=== PATIENT | female | born 1935 | race Caucasian/White ===

== ENCOUNTER → 2017-05-31 10:53 | Outpatient (CLI) | payer MEDICARE, OTHER, SELFPAY ==
[2017-05-31 11:55] LABS: Hematocrit 37.1 % (37-47); Hemoglobin 12.5 g/dl (12.0-15.0); Mean Corp Hgb Conc 33.7 g/gl (32-36); Mean Corpuscular Hgb 31.1 pg (27.0-32.0); Mean Corpuscular Volume 92.3 fL (81-99); Mean Platelet Vol. 9.5 fl (6.2-12.0); Platelet Count 223 K/mm3 (150-450); RBC Distribution Width CV 13.1 % (11.6-14.6); RBC Distribution Width SD 43.9 fl (35.1-43.9); Red Blood Count 4.02 M/mm3 (4.2-5.4); White Blood Count 6.3 K/mm3 (4.4-11.0)
[2017-05-31 11:57] LABS: Scan Indicated on CBC? Y/N NO
[2017-05-31 12:56] LABS: AST(SGOT) 18 U/L (15-37); Alanine Aminotransfer ALT/SGPT 22 U/L (13-56); Albumin, Serum 3.8 g/dL (3.2-5.0); Alkaline Phosphatase 82 U/L (45-117); Anion Gap 8 (5-15); BUN 11 mg/dL (7-18); BUN/Creat Ratio 14.8 RATIO (10-20); Calcium,Total 8.8 mg/dL (8.5-10.1); Chloride 106 mmol/L (98-107); Cholesterol 234 mg/dL (200); Creatinine, Serum 0.74 mg/dL (0.55-1.02); EST Glomerular Filtration Rate 80 mL/min (>60); Est Glom Filt Rate - Afr Amer 97 mL/min (>60); Glucose 111 mg/dL (74-106); High Density Lipoprotein 30 mg/dL; Protein, Total 7.8 g/dL (6.4-8.2); Sodium Level 141 mmol/L (136-145); Triglycerides 218 mg/dL; Very Low Density Lipoprotein 44 mg/dL (5-40)
== END ==
PROVIDERS: Family Provider Family Medicine; PCP Family Medicine; Visit Provider Family Medicine
DX: I10 Essential (primary) hypertension (principal); R73.9 Hyperglycemia, unspecified; E78.2 Mixed hyperlipidemia
CPT/HCPCS: 36415; 80053; 80061; 83036; 85027

== ENCOUNTER 2017-07-09 10:20 | Inpatient (IN) | payer MEDICARE, OTHER, SELFPAY ==
[2017-07-09] VITALS (16 sets, daily range): BP systolic 125–204; BP diastolic 48–91; PULSE 42–59; RESP 16–18; TEMP 36.2–37.1; O2SAT 94–98; BMI 26.6; BMI 26.8
--- NOTE | 2017-07-09 10:43 | EKG12_ITS ---
Test Reason : CHEST PAIN Blood Pressure : / mmHG Vent. Rate : 048 BPM Atrial Rate : 048 BPM P-R Int : 182 ms QRS Dur : 074 ms QT Int : 508 ms P-R-T Axes : 046 -14 014 degrees QTc Int : 453 ms Sinus bradycardia Otherwise normal ECG Confirmed by QUIANA PEOPLES, CHELY ([id number]), order editor SONAM GAUTAM ([id number]) on 07/11/2017 3:16:34 PM Referred By: NEIL/GASTON Confirmed By:CHELY ARAYA MD
--- NOTE | 2017-07-09 10:43 | RAD_ITS ---
STUDY: X-RAY CHEST REASON FOR EXAM: Female, 82 years old. Chest pain. TECHNIQUE: Single AP portable view of the chest. COMPARISON: Prior comparison studies are not available for review at this time. FINDINGS: The lungs are clear and expanded. There is no demonstrated pleural abnormality. Normal size heart. Normal mediastinum and alejandro. Normal visualized pulmonary arteries. There is atherosclerotic calcification of the aortic arch with tortuosity. The thoracic spine is not well-seen. There is degenerative osteoarthritis of the bilateral shoulders. There is no demonstrated abnormality of the visualized soft tissue structures of the upper abdomen. RAD/Chest 1 View (Portable) IMPRESSION: No active pulmonary disease. Electronically Signed: Alan Byrd MD at 11:49 EDT Tel , Service support ,
[2017-07-09 10:51] LABS: Absolute Lymphocyte Count 2.01 X10^3/ul (0.83-4.51); Absolute Neutrophil Count 3.8 X10^3/uL (2.0-7.7); Basophil# 0.03 X10^3/uL; Basophil% 0.5 % (0-1); Hematocrit 37.5 % (37-47); Hemoglobin 13.1 g/dl (12.0-15.0); Lymphocyte # 2.01 X10^3/ul (4.0); Lymphocyte % 30.3 % (19-41); Mean Corp Hgb Conc 34.9 g/gl (32-36); Mean Corpuscular Hgb 32.3 pg (27.0-32.0); Mean Corpuscular Volume 92.6 fL (81-99); Mean Platelet Vol. 10.1 fl (6.2-12.0); Monocyte# 0.59 X10^3/uL; Monocyte% 8.9 % (0-10); Neutrophil # 3.78 X10^3/uL (2.7-7.7); Neutrophil % 56.8 % (47-70); Platelet Count 231 K/mm3 (150-450); RBC Distribution Width SD 42.8 fl (35.1-43.9); Red Blood Count 4.05 M/mm3 (4.2-5.4); White Blood Count 6.6 K/mm3 (4.4-11.0)
[2017-07-09 10:52] LABS: POSITIVE COUNT NO; POSITIVE DIFFERENTIAL NO; POSITIVE MORPHOLOGY NO
[2017-07-09] MEDS: Aspirin 81 MG TAB.CHEW 324 MG PO (10:52)
[2017-07-09 11:06] LABS: Anion Gap 6 (5-15); BUN 10 mg/dL (7-18); BUN/Creat Ratio 13.4 RATIO (10-20); Calcium,Total 8.8 mg/dL (8.5-10.1); Chloride 106 mmol/L (98-107); Creatinine, Serum 0.75 mg/dL (0.55-1.02); EST Glomerular Filtration Rate 79 mL/min (>60); Est Glom Filt Rate - Afr Amer 96 mL/min (>60); Estimated Creatinine Clearance 38.75 ml/min; Glucose 164 mg/dL (74-106); Sodium Level 138 mmol/L (136-145)
--- NOTE | 2017-07-09 11:08 | ED.DCSUM_ITS ---
- ER Visit Summary Date of Service: 07/09/17 Chief Complaint: Chest pain History of Present Illness: The patient is a 82 F with retrosternal chest pain that started this morning around 8 AM. Feels achy and is worse with exertion. Also with moving and deep breathing. Better at rest. Denies any history of this. She does have a history of high blood pressure. No history of coronary disease. Former smoker. No history of calf, stent, PE, DVT, aortic disease, or chest surgery. No fevers or infectious symptoms. Physical Examination: Blood pressure 185/73 and heart rate 51. Otherwise afebrile and vitals normal. Patient is sitting and speaking comfortably. Heart rate is bradycardic but regular. Lungs are clear throughout. Abdomen soft. Skin, calves, pulses unremarkable. Test Results: EKG showed sinus bradycardia at a rate of 48. No sign of acute ischemia or infarction pattern. Laboratory studies and chest x-ray pending. Emergency Department Course and Treatment: Patient was placed on a monitor and EKG was done on arrival. Her symptoms are concerning for ACS, chest wall pain. She has nothing to suggest a vascular pathology or GI pathology. No respiratory symptoms or infectious symptoms. She received aspirin and we will check labs and chest x-ray. Patient also received nitro. Symptoms improved. Workup was all fairly unremarkable. I went to discuss results and she was complaining of recurrent pain. She said the pain goes to her back and her father had a history of aortic aneurysm. Will check a CTA. Patient will be admitted to Dr. Lovelace pending results of the scan. Treatment Plan: As above Disposition: Admission Impression: 1. Chest pain This note was generated with [employer] dictation software. It may contain incorrect words, spelling, and punctuation that were not noted in review of the chart prior to signing ED Disposition - Plan for ED Patient: Chief Complaint: Chest Pain Referrals: Amari Mathur MD [Primary Care Provider] -
--- NOTE | 2017-07-09 12:14 | CT_ITS ---
STUDY: CTA CHEST REASON FOR EXAM: Female, 82 years old. Dissection. Midsternal chest pain. Bradycardia. RADIATION DOSAGE (If Supplied By Facility): CTDIvol = ( 15.40 ) mGy, DLP = ( 395.18 ) mGycm TECHNIQUE: The examination was performed with the intravenous administration of 100CC ml of Isovue 300 contrast material. Post-processing of the angiographic images was performed, with multiplanar reformation and 3D reconstruction. Individualized dose optimization techniques were used for this CT. COMPARISON: None. FINDINGS: Normal enhancement of the main pulmonary artery and right and left pulmonary arteries. Less than optimal contrast enhancement of the bilateral pulmonary peripheral arteries. There is no demonstrated pulmonary embolism. Nonocclusive calcified and noncalcified plaques along the thoracic aorta. No thoracic aortic aneurysm. There is no demonstrated aortic dissection. Normal heart and pericardium. Normal mediastinum. Normal hilar regions. Normal visualized trachea and bronchi. The lungs are well expanded. Normal pulmonary parenchyma. Normal pleura. Normal chest wall structures. Normal osseous structures. Large gastric hernia in the posterior mediastinum. CT/CTA Chest W/WO Contrast IMPRESSION: 1. Limited CTA due to less than optimal contrast enhancement of the bilateral peripheral pulmonary arteries. No suspicious or obvious pulmonary thromboemboli. 2. Nonocclusive calcified and noncalcified plaques along the thoracic aorta without aneurysmal dissection or thoracic aneurysm. 3. Large gastric hernia in the posterior mediastinum. Electronically Signed: Cooper Morillo MD at 13:58 EDT , Service support ,
[2017-07-09] MEDS: fentaNYL 100 MCG/2 ML Ampul 50 MCG IV (12:29)
--- NOTE | 2017-07-09 12:50 | NURSING ---
pcu obs cp sementi
--- NOTE | 2017-07-09 14:45 | EKG12_ITS ---
Test Reason : ADMISSION CP EKG Blood Pressure : / mmHG Vent. Rate : 043 BPM Atrial Rate : 043 BPM P-R Int : 178 ms QRS Dur : 072 ms QT Int : 546 ms P-R-T Axes : 047 -15 009 degrees QTc Int : 461 ms Marked sinus bradycardia Abnormal ECG When compared with ECG of 21-MAY-2010 11:31, No significant change was found Confirmed by QUIANA PEOPLES, CHELY ([id number]), associate editor SONAM GAUTAM ([id number]) on 07/11/2017 3:22:02 PM Referred By: ALESSANDRO Confirmed By:CHELY ARAYA MD
--- NOTE | 2017-07-09 16:24 | PCM.HP.STD ---
Problem List (1) Atypical chest pain Status: Acute (2) HTN (hypertension) Status: Chronic (3) GERD (gastroesophageal reflux disease) Status: Chronic History of Present Illness Date of Admission: 07/09/17 Chief Complaint: chest pain The patient is a 82 year old F with a PMH of HTN, GERD, OA and anxiety/depression who presented to the ED at [facility] on 07/09/17 c/o substernal chest pain. The pain started at rest and and was non-radiating. She had SOB but denied diaphoresis and nausea. The pain started after breakfast while she was sitting down. She had coffee and cinnamon toast for breakfast. She was given a total of 3 NTG and it did not relieve the pain. She received 50 mcg of Fentanyl in the ED and this helped with the pain although she still has some residual. The pain increases with a deep breath. She tells me that on 06/11 her PCP doubled her Metoprolol because of uncontrolled BP. She does not know the dose and has no list of her meds with her at this time. Vital signs at presentation to the emergency room were temperature 98.7, pulse rate 51, blood pressure 185/73, respiratory rate 16 and she was 96-98% saturated on room air. Blood pressure is very erratic and labile and has ranged from 125/71 to 204/73 since presentation to the emergency room. The EKG shows SB but no ischemic changes. Chest x-ray showed no pulmonary vascular congestion, pleural effusions or infiltrates. Significant lab included an elevated blood glucose at 164 and an initial troponin of less than 0.015. CTA of the chest was negative for aneurysm and also for PE, although there was less than optimal enhancement of the BL pulmonary arteries. There is a large gastric HH in the posterior mediastinum. RACHELL score is 3 and she is being admitted to a monitored bed on PCU for observation, serial CE's, ECHO and a stress in the AM if the CE's are negative. Past Medical History Past Medical History (Chronic Problems): Chronic Problems HTN (hypertension) (Chronic) GERD (gastroesophageal reflux disease) (Chronic) Allergies Sulfa (Sulfonamide Antibiotics) Allergy (Verified 07/09/17 10:21) Hives amlodipine besylate [From [facility]] Adverse Reaction (Verified 07/09/17 10:21) Swelling Home Medications: Ambulatory Orders Medication Instructions Recorded Aspirin E.C. [Ecotrin] 325 mg PO DAILY@0800 04/23/13 Citalopram Hydrobromide 40 mg PO DAILY 07/09/17 [Citalopram HBr] Loperamide HCl [Anti-Diarrheal] 2 mg PO PRN PRN 07/09/17 Metoprolol(XL)Succ [Toprol Xl 100 mg PO DAILY 07/09/17 (Beta Isabel)] [place]-3 Fatty Acids/Fish Oil [Fish 2 each PO BID 07/09/17 Oil 1,000 mg Capsule] Omeprazole Magnesium [Prilosec Otc] 20 mg PO QHS 07/09/17 Oxybutynin Chloride [Ditropan Xl] 10 mg PO DAILY 07/09/17 Potassium Chloride 10 meq PO BID 07/09/17 Verapamil HCl [Verapamil ER] 240 mg PO DAILY 07/09/17 Surgical History: appendectomy, arthroscopy, knee - right- with medial and lateral meniscus repair, cataract - BL, cholecystectomy, hysterectomy - for bleeding, rotator cuff repair - BL, total knee arthroplasty - left Psychiatric History: Anxiety, Depression 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 Denies: Sinus Congestion, Sinus Drainage Cardiovascular: Reports: Chest Pain. Denies: Edema, Light Headedness, Orthopnea, Palpitations, Paroxysmal Noc. Dyspnea, Syncope Respiratory: Reports: Cough - occasional Gastrointestinal: Denies: Abdominal Pain, Diarrhea, Nausea, Vomiting Genitourinary: Denies: Dysuria Gynecological: Denies: Breast symptoms Musculoskeletal: Denies: Joint Pain, Joint swelling, Joint Tenderness Skin: Denies: Rash, Wounds Neurological: Reports: Balance problems - nothing new. Denies: Double vision, Change in Speech, Slurred speech, Confusion, Focal weakness, Seizures Psychiatric: Reports: Anxiety, Depression. Denies: Homicidal Ideations, Suicidal Ideations Endocrine: Denies: Change in Body Habitus Hematologic/ Lymphatic: Denies: Hx of blood clot VTE Information - Inpt Only VTE Present on Admission: No VTE Mechan Device Prophylaxis: Knee High FRANCES Hose VTE Pharm Prophylaxis ordered?: Yes Patient Problems: Active and Suspected Problems Atypical chest pain (Acute) - Physical Exam General: Alert, Oriented x3, Cooperative, No apparent distress, Well developed, Well nourished HEENT: Atraumatic, PERRLA, EOMI, Normocephalic Oral: Moist Mucosa, No Gingival or Mucosal Lesions/ Ulcerations Neck: Supple, No JVD, Negative Carotid Bruits, No Nodes, Trachea Midline, - - Carotids have brisk upstroke and good pulse volume bilaterally Lungs: Clear to auscultation, No rhonchi, No wheeze, No rales Cardiovascular: Regular Rhythm, Normal S1, Normal S2, No murmurs, Bradycardic, No rub noted, No Gallop Abdomen: Bowel Sounds Present, Soft, Non Tender, Non-Distended, No Hepato-splenomegaly, - - No guarding with palpation and no abdominal bruits Extremities: No clubbing, No cyanosis, No edema, Capillary Refill Less than 3 Seconds, No Calf Tenderness, Peripheral Pulses Normal Skin: No rashes, No breakdown Musculoskeletal: No Muscle Wasting Neurological: Cranial nerves II-XII grossly intact, Neuro grossly intact Psych/Mental Status: Normal Affect, Appropriate Vital Signs Temp Pulse Resp BP Pulse Ox 97.7 F L 45 L 18 179/78 H 97 07/09/17 12:32 07/09/17 13:31 07/09/17 13:31 07/09/17 13:31 07/09/17 15:00 Oxygen Delivery Method Room Air Weight: 156 lb 1.396 oz Body Mass Index (BMI) 26.8 Laboratory Tests Past 24 Hrs 07/09/17 15:20 Troponin I < 0.015 Assessment/Plan Active and Suspected Problems Atypical chest pain (Acute) Impressions 1. Atypical chest pain 2. Hypertension-uncontrolled 3. Hyperglycemia with no history of diabetes mellitus 4. GERD -? she takes omeprazol at HS 5. Large gastric hiatal hernia in the posterior mediastinum 6. Osteoarthritis 7. Anxiety/depression Admit to a monitored bed on see you ASA 81 mg PO daily SL NTG 0.4 mg PRN chest pain Serial Cardiac Enzymes Stat EKG PRN CP Stress test in the AM if the cardiac enzymes are negative DVT prophylaxis ordered Check a HGBA1C Lipid panel in the AM ECHO Code Visit OBSV E&M: 06295 Initial observation care L3
--- NOTE | 2017-07-09 16:36 | HP.PCM_ITS ---
Problem List (1) Atypical chest pain Status: Acute (2) HTN (hypertension) Status: Chronic (3) GERD (gastroesophageal reflux disease) Status: Chronic History of Present Illness Date of Admission: 07/09/17 Chief Complaint: chest pain The patient is a 82 year old F with a PMH of HTN, GERD, OA and anxiety/ depression who presented to the ED at [facility] on 07/09/17 c/o substernal chest pain. The pain started at rest and and was non-radiating. She had SOB but denied diaphoresis and nausea. The pain started after breakfast while she was sitting down. She had coffee and cinnamon toast for breakfast. She was given a total of 3 NTG and it did not relieve the pain. She received 50 mcg of Fentanyl in the ED and this helped with the pain although she still has some residual. The pain increases with a deep breath. She tells me that on 06/11 her PCP doubled her Metoprolol because of uncontrolled BP. She does not know the dose and has no list of her meds with her at this time. Vital signs at presentation to the emergency room were temperature 98.7, pulse rate 51, blood pressure 185/73, respiratory rate 16 and she was 96-98% saturated on room air. Blood pressure is very erratic and labile and has ranged from 125/71 to 204/73 since presentation to the emergency room. The EKG shows SB but no ischemic changes. Chest x-ray showed no pulmonary vascular congestion, pleural effusions or infiltrates. Significant lab included an elevated blood glucose at 164 and an initial troponin of less than 0.015. CTA of the chest was negative for aneurysm and also for PE, although there was less than optimal enhancement of the BL pulmonary arteries. There is a large gastric HH in the posterior mediastinum. RACHELL score is 3 and she is being admitted to a monitored bed on PCU for observation, serial CE's, ECHO and a stress in the AM if the CE's are negative. Past Medical History Past Medical History (Chronic Problems): Chronic Problems HTN (hypertension) (Chronic) GERD (gastroesophageal reflux disease) (Chronic) Allergies Sulfa (Sulfonamide Antibiotics) Allergy (Verified 07/09/17 10:21) Hives amlodipine besylate [From [facility]] Adverse Reaction (Verified 07/09/17 10:21) Swelling Home Medications: Ambulatory Orders Medication Instructions Recorded Aspirin E.C. [Ecotrin] 325 mg PO DAILY@0800 04/23/13 Citalopram Hydrobromide 40 mg PO DAILY 07/09/17 [Citalopram HBr] Loperamide HCl [Anti-Diarrheal] 2 mg PO PRN PRN 07/09/17 Metoprolol(XL)Succ [Toprol Xl 100 mg PO DAILY 07/09/17 (Beta Isabel)] [place]-3 Fatty Acids/Fish Oil [Fish 2 each PO BID 07/09/17 Oil 1,000 mg Capsule] Omeprazole Magnesium [Prilosec Otc] 20 mg PO QHS 07/09/17 Oxybutynin Chloride [Ditropan Xl] 10 mg PO DAILY 07/09/17 Potassium Chloride 10 meq PO BID 07/09/17 Verapamil HCl [Verapamil ER] 240 mg PO DAILY 07/09/17 Surgical History: appendectomy, arthroscopy, knee - right- with medial and lateral meniscus repair, cataract - BL, cholecystectomy, hysterectomy - for bleeding, rotator cuff repair - BL, total knee arthroplasty - left Psychiatric History: Anxiety, Depression 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 Denies: Sinus Congestion, Sinus Drainage Cardiovascular: Reports: Chest Pain. Denies: Edema, Light Headedness, Orthopnea , Palpitations, Paroxysmal Noc. Dyspnea, Syncope Respiratory: Reports: Cough - occasional Gastrointestinal: Denies: Abdominal Pain, Diarrhea, Nausea, Vomiting Genitourinary: Denies: Dysuria Gynecological: Denies: Breast symptoms Musculoskeletal: Denies: Joint Pain, Joint swelling, Joint Tenderness Skin: Denies: Rash, Wounds Neurological: Reports: Balance problems - nothing new. Denies: Double vision, Change in Speech, Slurred speech, Confusion, Focal weakness, Seizures Psychiatric: Reports: Anxiety, Depression. Denies: Homicidal Ideations, Suicidal Ideations Endocrine: Denies: Change in Body Habitus Hematologic/ Lymphatic: Denies: Hx of blood clot VTE Information - Inpt Only VTE Present on Admission: No VTE Mechan Device Prophylaxis: Knee High FRANCES Hose VTE Pharm Prophylaxis ordered?: Yes Patient Problems: Active and Suspected Problems Atypical chest pain (Acute) - Physical Exam General: Alert, Oriented x3, Cooperative, No apparent distress, Well developed, Well nourished HEENT: Atraumatic, PERRLA, EOMI, Normocephalic Oral: Moist Mucosa, No Gingival or Mucosal Lesions/ Ulcerations Neck: Supple, No JVD, Negative Carotid Bruits, No Nodes, Trachea Midline, - - Carotids have brisk upstroke and good pulse volume bilaterally Lungs: Clear to auscultation, No rhonchi, No wheeze, No rales Cardiovascular: Regular Rhythm, Normal S1, Normal S2, No murmurs, Bradycardic, No rub noted, No Gallop Abdomen: Bowel Sounds Present, Soft, Non Tender, Non-Distended, No Hepato- splenomegaly, - - No guarding with palpation and no abdominal bruits Extremities: No clubbing, No cyanosis, No edema, Capillary Refill Less than 3 Seconds, No Calf Tenderness, Peripheral Pulses Normal Skin: No rashes, No breakdown Musculoskeletal: No Muscle Wasting Neurological: Cranial nerves II-XII grossly intact, Neuro grossly intact Psych/Mental Status: Normal Affect, Appropriate Vital Signs Temp Pulse Resp BP Pulse Ox 97.7 F L 45 L 18 179/78 H 97 07/09/17 12:32 07/09/17 13:31 07/09/17 13:31 07/09/17 13:31 07/09/17 15:00 Oxygen Delivery Method Room Air Weight: 156 lb 1.396 oz Body Mass Index (BMI) 26.8 Laboratory Tests Past 24 Hrs 07/09/17 15:20 Troponin I < 0.015 Assessment/Plan Active and Suspected Problems Atypical chest pain (Acute) Impressions 1. Atypical chest pain 2. Hypertension-uncontrolled 3. Hyperglycemia with no history of diabetes mellitus 4. GERD -? she takes omeprazol at HS 5. Large gastric hiatal hernia in the posterior mediastinum 6. Osteoarthritis 7. Anxiety/depression Admit to a monitored bed on see you ASA 81 mg PO daily SL NTG 0.4 mg PRN chest pain Serial Cardiac Enzymes Stat EKG PRN CP Stress test in the AM if the cardiac enzymes are negative DVT prophylaxis ordered Check a HGBA1C Lipid panel in the AM ECHO Code Visit OBSV E&M: 96034 Initial observation care L3
[2017-07-09 18:18] LABS: Hemoglobin A1c 5.4 % (4.2-6.3)
[2017-07-09] MEDS: Acetaminophen 325 MG Tablet 650 MG PO (19:45)
[2017-07-09] MEDS: Lisinopril 10 MG Tablet PO (21:17)
[2017-07-09] MEDS: hydrALAZINE 25 MG Tablet PO (21:17)
[2017-07-10] VITALS (14 sets, daily range): BP systolic 146–174; BP diastolic 52–89; PULSE 39–67; RESP 16–20; TEMP 36.6–37.2; O2SAT 94–96
[2017-07-10] MEDS: 0.9% NaCl Peripheral Flush Adult/Peds IV ×2 (05:20→16:39)
[2017-07-10] MEDS: Aspirin E.C. 81 MG Tablet PO (05:20)
[2017-07-10] MEDS: Lisinopril 10 MG Tablet PO (05:21)
[2017-07-10] MEDS: hydrALAZINE 25 MG Tablet PO ×3 (05:21→21:49)
--- NOTE | 2017-07-10 05:55 | ECHOD_ITS ---
Reason For Study: Chest pain Procedure This was a 2D Doppler, Color Flow transthoracic echocardiogram. Exam performed in department. Left Ventricle Normal LV size. Left ventricular systolic function is normal. The estimated ejection fraction is 60 %. Transmitral diastolic flow velocities suggest mild (stage 1) diastolic dysfunction (reversed pattern). No regional wall motion abnormalities noted. Right Ventricle Normal RV size. Normal systolic function. Atria Normal left atrium. Normal right atrium. Mitral Valve Normal mitral valve. Tricuspid Valve Normal tricuspid valve. Mild (1+) tricuspid valve insufficiency. Pulmonary artery systolic pressure is 42 mmHg. Aortic Valve Normal aortic valve. Trisinus/trileaflet aortic valve. Pulmonic Valve Normal pulmonic valve. Mild (1+) pulmonic valve insufficiency. Great Vessels Normal aortic root. The pulmonary artery is normal size. Inferior vena cava collapse with respiration. Pericardium/Pleural No pericardial effusion. MMode/2D Measurements & Calculations LVIDd: 4.2 cm IVSd: 1.3 cm Ao root diam: 3.3 cm LVIDs: 2.3 cm LVPWd: 1.1 cm LA dimension: 4.3 cm RVDd: 3.1 cm FS: 45.5 % LAV(MOD-bp): 56.4 ml LA A4 area: 18.5 cm2 RA A4 area: 12.3 cm2 LAV(MOD-bp) Indexed: 32.0 ml/m2 LAV(MOD-sp2): 60.6 ml LAV(MOD-sp4): 50.9 ml Doppler Measurements & Calculations MV E max ulises: 57.3 cm/sec Lat Peak E' Ulises: 5.1 cm/sec Med Peak E' Ulises: 5.9 cm/sec MV A max ulises: 91.8 cm/sec E/E' lat: 11.2 E/E' med: 9.6 MV E/A: 0.62 Ao V2 max: 173.0 cm/sec LV V1 max: 120.2 cm/sec PA V2 max: 174.0 cm/sec Ao max P.0 mmHg LV V1 max P.8 mmHg TR max ulises: 310.2 cm/sec TR max P.5 mmHg Interpretation Summary Normal LV size. Left ventricular systolic function is normal. The estimated ejection fraction is 60 %. Transmitral diastolic flow velocities suggest mild (stage 1) diastolic dysfunction (reversed pattern). Mild (1+) tricuspid valve insufficiency. Pulmonary artery systolic pressure is 42 mmHg. Ordering Physician: Grisel Lovelace Referring Physician: Amari Mathur Performed By: Nataliya Jacinto RDCS
[2017-07-10 06:47] LABS: AST(SGOT) 17 U/L (15-37); Alanine Aminotransfer ALT/SGPT 30 U/L (13-56); Albumin, Serum 3.4 g/dL (3.2-5.0); Alkaline Phosphatase 74 U/L (45-117); Bilirubin, Direct 0.06 mg/dL (0.00-0.30); Cholesterol 193 mg/dL (200); Globulin 3.4 g/dL (2.2-4.2); High Density Lipoprotein 28 mg/dL; Protein, Total 6.8 g/dL (6.4-8.2); Triglycerides 210 mg/dL; Very Low Density Lipoprotein 42 mg/dL (5-40)
--- NOTE | 2017-07-10 12:57 | STRESSREP ---
Stress Test Report Pharmacologic myocardial perfusion stress test. 82-year-old lady with a history of chest pain. Stress protocol: Resting EKG demonstrates sinus bradycardia with a rate of 45 bpm normal intervals and noted resting blood pressure is 132/78 mmHg. 0.4 mg of regadenoson was infused per usual protocol followed by rapid intravenous saline flush injection continuous EKG monitoring was performed. Patient maintained sinus rhythm throughout the recording. At rest there were no ST or T-wave changes noted suggest ischemia peak infusion nonspecific T-wave inversions were noted in the inferolateral leads. There were no ST changes noted suggest ischemia. The maximum heart rate attained was 80 bpm which was 57% of maximum predicted heart rate. Resting blood pressure is 132/78 with a final blood pressure 148/72. Myocardial perfusion protocol: 11.4 mCi of technetium 99m sestamibi was injected at rest. 0.4 mg regadenoson was infused per usual protocol. At peak infusion 34.5 mCi of technetium 99m sestamibi was injected stress images were obtained stress and rest images were reconstructed and compared in the short axis vertical long and horizontal long axis. Gated images were also obtained. Perfusion SPECT analysis: Review of the stress images demonstrate normal uptake of tracer noted in all areas of the myocardium. The resting images similarly demonstrate normal uptake of tracer noted in all areas of the myocardium. No areas of reversibility are noted suggest ischemia and no previous infarct is noted. Gated SPECT analysis: The gated ejection fraction is noted to be 76%. Conclusion: Normal pharmacologic myocardial perfusion stress test. Preserved ejection fraction.
[2017-07-10] MEDS: Citalopram 40 MG TABLET PO (13:59)
[2017-07-10] MEDS: Enoxaparin 40 MG/0.4 ML Syringe SC (16:38)
[2017-07-10] MEDS: Acetaminophen 325 MG Tablet 650 MG PO (16:43)
--- NOTE | 2017-07-10 20:05 | PCM.PROGNOTE ---
Patient Problems: Active and Suspected Problems Atypical chest pain (Acute) Subjective: All events of the past 24 hours have been reviewed. She is afebrile and vital signs are stable. Systolic blood pressure is still mildly elevated but improving with changes in the antihypertensives made on 07/09/2017. She is 95-96% saturated on room air. Review of telemetry still shows heart rates in the high 30s and low 40s. Metoprolol was held today. Patient denies lightheadedness. She denies chest pain today. LDL cholesterol is 123 with an HDL of 28 and triglycerides of 210. Serial cardiac enzymes were negative. LFTs were within normal limits. Hemoglobin A1c is normal at 5.4. The stress test was normal with no evidence of ischemia and with a preserved ejection fraction of 76%. Echocardiogram shows normal left ventricular size with an estimated ejection fraction of 60%. Transmitral diastolic flow velocities suggested stage I diastolic dysfunction. There is +1 TR and the pulmonary pressure is mildly increased at 42. Objective: General: alert, oriented X3, NAD, appropriate with normal affect Neck: supple, trachea midline, carotids have brisk upstroke and normal pulse volume, no JVD, no carotid bruits Lungs: CTA, symmetric chest expansion, not tachypneic, able to lie flat with no respiratory distress Heart: bradycardic rate and rhythm, normal S1, normal S2, no murmur, no gallop, no rub, PMI is on the midclavicular line Abdomen: soft, NT, ND, BS's present Extremities: no edema, no calf tenderness, peripheral pulses are normal - Physical Exam Vital Signs Temp Pulse Resp BP Pulse Ox 97.8 F 59 L 20 H 146/71 H 96 07/10/17 15:52 07/10/17 15:52 07/10/17 15:52 07/10/17 15:52 07/10/17 15:52 Oxygen Delivery Method Room Air Intake and Output for Last 24 Hours 07/08/17 07/09/17 07/10/17 23:59 23:59 23:59 Intake Total 240 / 240 Balance 240 / 240 Medical Necessity - Tobacco Use Smoking Status: Former smoker - quit in 1987 Tobacco Use: Non-smoker Assessment/Plan Active and Suspected Problems Atypical chest pain (Acute) Impressions 1. Atypical chest pain - stress negative with preserved EF 2. Hypertension-uncontrolled 3. Hyperglycemia with no history of diabetes mellitus - HGBA1C is 5.4 4. GERD -? she takes Omeprazol at HS 5. Large gastric hiatal hernia in the posterior mediastinum 6. Osteoarthritis 7. Anxiety/depression 8. diastolic dysfunction 9. mild pulmonary HTN per ECHO DC the Metoprolol for now Increase the BUDDY to 10 mg BID Continue hydralazine for now but it is a TID drug and she may have better compliance with Amlodipine Recheck lab in the AM consult Dr. Allen She may be able to tolerate a little beta mo.....if the HR is better in the AM consider 12.5 mg of Lopressor BID. Will discuss with Dr. Allen in the A< Updated her son with regard to plan for treatment going forward......no DC today Code Visit OBSV E&M: 34216 Subsequent observation care L2
--- NOTE | 2017-07-10 20:55 | PCM.CONS.C ---
Reason for Consult Date of Consultation: 07/10/17 Reason for Consultation: Evaluation of cardiac status and high blood pressure as well as bradycardia History of Present Illness: The patient is a 82 year old F with a PMH of HTN, GERD, OA and anxiety/depression who presented to the ED at [facility] on 07/09/17 c/o substernal chest pain. The pain started at rest and and was non-radiating. She had SOB but denied diaphoresis and nausea. The pain started after breakfast while she was sitting down. She had coffee and cinnamon toast for breakfast. She was given a total of 3 NTG and it did not relieve the pain. She received 50 mcg of Fentanyl in the ED and this helped with the pain although she still has some residual. The pain increases with a deep breath. She tells me that on 06/11 her PCP doubled her Metoprolol because of uncontrolled BP. She had been checking her blood pressures at home and they have remained in the hypertensive range and she was noted to be rather bradycardic. Vital signs at presentation to the emergency room were temperature 98.7, pulse rate 51, blood pressure 185/73, respiratory rate 16 and she was 96-98% saturated on room air. Blood pressure is very erratic and labile and has ranged from 125/71 to 204/73 since presentation to the emergency room. The EKG shows SB but no ischemic changes. Chest x-ray showed no pulmonary vascular congestion, pleural effusions or infiltrates. Significant lab included an elevated blood glucose at 164 and an initial troponin of less than 0.015. CTA of the chest was negative for aneurysm and also for PE, although there was less than optimal enhancement of the BL pulmonary arteries. There is a large gastric HH in the posterior mediastinum. RACHELL score is 3 and she is being admitted to a monitored bed on PCU for observation, she did obtain an echocardiogram which demonstrated preserved ejection fraction with stage I diastolic dysfunction as well as a myocardial perfusion stress test which did not demonstrate any evidence of ischemia. I was asked to see the patient on a social visit basis especially since I was going to be seeing her in the office on the of this month. She is currently without any complaints. Past Medical History Allergies/Adverse Reactions: Allergies Sulfa (Sulfonamide Antibiotics) Allergy (Verified 07/09/17 10:21) Hives amlodipine besylate [From [facility]] Adverse Reaction (Verified 07/09/17 10:21) Swelling Home Medications: Ambulatory Orders Medication Instructions Recorded Aspirin E.C. [Ecotrin] 325 mg PO DAILY@0800 04/23/13 Citalopram Hydrobromide 40 mg PO DAILY 07/09/17 [Citalopram HBr] Loperamide HCl [Anti-Diarrheal] 2 mg PO PRN PRN 07/09/17 Metoprolol(XL)Succ [Toprol Xl 100 mg PO DAILY 07/09/17 (Beta Isabel)] Ethel-3 Fatty Acids/Fish Oil [Fish 2 each PO BID 07/09/17 Oil 1,000 mg Capsule] Omeprazole Magnesium [Prilosec Otc] 20 mg PO QHS 07/09/17 Oxybutynin Chloride [Ditropan Xl] 10 mg PO DAILY 07/09/17 Potassium Chloride 10 meq PO BID 07/09/17 Verapamil HCl [Verapamil ER] 240 mg PO DAILY 07/09/17 Past Medical History (Chronic Problems): Chronic Problems HTN (hypertension) (Chronic) GERD (gastroesophageal reflux disease) (Chronic) Surgical History: appendectomy, arthroscopy, knee - right- with medial and lateral meniscus repair, cataract - BL, cholecystectomy, hysterectomy - for bleeding, rotator cuff repair - BL, total knee arthroplasty - left Psychiatric History: Anxiety, Depression 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 - *Family History Paternal History Items: - - father had an aortic aneurysm Maternal History Items: Diabetes Lives: Alone Smoking Status: Former smoker - quit in 1987 Tobacco Use: Non-smoker Alcohol: Rare - occasional glass of wine Drugs: None Review of Systems - Review of Systems General: Denies: Fever, Night Sweats, Fatigue Cardiovascular: Denies: Chest Discomfort, Shortness of Breath, Orthopnea, PND, Peripheral Edema, Palpitations, Lightheadedness, Dizziness, Near Syncope, Syncope Respiratory: Denies: Cough, Sputum Production, Hemoptysis Gastrointestinal: Denies: Hematemesis, Hematochezia, Melena Genitourinary: Denies: Dysuria, Hematuria Skin: Denies: Rash Subjectve: Pleasant lady in no apparent distress Objective: Vital Signs Temp Pulse Resp BP Pulse Ox 97.8 F 59 L 20 H 146/71 H 96 07/10/17 15:52 07/10/17 15:52 07/10/17 15:52 07/10/17 15:52 07/10/17 15:52 Oxygen Delivery Method Room Air Intake and Output for Last 24 Hours 07/08/17 07/09/17 07/10/17 23:59 23:59 23:59 Intake Total 240 / 240 Balance 240 / 240 General: Awake, Alert, Oriented x 3 HEENT: PERRL, EOMI, Sclera Non Icteric Neck: Supple, Good ROM, No Lymph Node Enlargement Lungs: Clear to auscultation Cardiovascular: Regular Rhythm, Normal S1, Normal S2, No Murmurs, No Rubs, No Gallops Vascular: No Carotid Bruits, Normal Femoral Pulses, Normal Radial Pulses, Normal Dorsalis Pedal Pulse, Normal Posterior Tibial Pulses Abdomen: Bowel Sounds Present, Soft, Non Tender, No HSM, No Organomegaly Extremities: No Cyanosis, No Clubbing, No edema Neurological: No Focal Motor or Sensory Deficit Rhythm: EKG: Sinus bradycardia with no acute changes ECHO: Preserved left ventricular ejection fraction estimated EF 60% Stress Test: No evidence of ischemia Assessment/Plan 1. Uncontrolled hypertension. The patient was noted to be on a high dose beta-isabel as well as verapamil which caused significant bradycardia but with her blood pressure still been uncontrolled. Her echocardiogram has demonstrated preserved ejection fraction and she does not have any ischemia noted on her myocardial perfusion stress test. My recommendation will be to discontinue the negative chronotropic medications and use an BUDDY inhibitor with lisinopril 20 mg twice a day to control her blood pressure. After her heart rate has improved she may be able to tolerate a low-dose of beta-isabel such as Toprol-XL 50 mg a day. I am hesitant to discontinue both the metoprolol as well as the verapamil due to reflex tachycardia. Her blood pressure will be reviewed in a.m. Thank you for allowing me to participate in the care of your patient. Please don't hesitate to call if any issues arise
--- NOTE | 2017-07-10 20:59 | CON.PCM_ITS ---
Reason for Consult Date of Consultation: 07/10/17 Reason for Consultation: Evaluation of cardiac status and high blood pressure as well as bradycardia History of Present Illness: The patient is a 82 year old F with a PMH of HTN, GERD, OA and anxiety/ depression who presented to the ED at [facility] on 07/09/17 c/o substernal chest pain. The pain started at rest and and was non-radiating. She had SOB but denied diaphoresis and nausea. The pain started after breakfast while she was sitting down. She had coffee and cinnamon toast for breakfast. She was given a total of 3 NTG and it did not relieve the pain. She received 50 mcg of Fentanyl in the ED and this helped with the pain although she still has some residual. The pain increases with a deep breath. She tells me that on 06/11 her PCP doubled her Metoprolol because of uncontrolled BP. She had been checking her blood pressures at home and they have remained in the hypertensive range and she was noted to be rather bradycardic. Vital signs at presentation to the emergency room were temperature 98.7, pulse rate 51, blood pressure 185/73, respiratory rate 16 and she was 96-98% saturated on room air. Blood pressure is very erratic and labile and has ranged from 125/71 to 204/73 since presentation to the emergency room. The EKG shows SB but no ischemic changes. Chest x-ray showed no pulmonary vascular congestion, pleural effusions or infiltrates. Significant lab included an elevated blood glucose at 164 and an initial troponin of less than 0.015. CTA of the chest was negative for aneurysm and also for PE, although there was less than optimal enhancement of the BL pulmonary arteries. There is a large gastric HH in the posterior mediastinum. RACHELL score is 3 and she is being admitted to a monitored bed on PCU for observation, she did obtain an echocardiogram which demonstrated preserved ejection fraction with stage I diastolic dysfunction as well as a myocardial perfusion stress test which did not demonstrate any evidence of ischemia. I was asked to see the patient on a social visit basis especially since I was going to be seeing her in the office on the of this month. She is currently without any complaints. Past Medical History Allergies/Adverse Reactions: Allergies Sulfa (Sulfonamide Antibiotics) Allergy (Verified 07/09/17 10:21) Hives amlodipine besylate [From [facility]] Adverse Reaction (Verified 07/09/17 10:21) Swelling Home Medications: Ambulatory Orders Medication Instructions Recorded Aspirin E.C. [Ecotrin] 325 mg PO DAILY@0800 04/23/13 Citalopram Hydrobromide 40 mg PO DAILY 07/09/17 [Citalopram HBr] Loperamide HCl [Anti-Diarrheal] 2 mg PO PRN PRN 07/09/17 Metoprolol(XL)Succ [Toprol Xl 100 mg PO DAILY 07/09/17 (Beta Isabel)] [place]-3 Fatty Acids/Fish Oil [Fish 2 each PO BID 07/09/17 Oil 1,000 mg Capsule] Omeprazole Magnesium [Prilosec Otc] 20 mg PO QHS 07/09/17 Oxybutynin Chloride [Ditropan Xl] 10 mg PO DAILY 07/09/17 Potassium Chloride 10 meq PO BID 07/09/17 Verapamil HCl [Verapamil ER] 240 mg PO DAILY 07/09/17 Past Medical History (Chronic Problems): Chronic Problems HTN (hypertension) (Chronic) GERD (gastroesophageal reflux disease) (Chronic) Surgical History: appendectomy, arthroscopy, knee - right- with medial and lateral meniscus repair, cataract - BL, cholecystectomy, hysterectomy - for bleeding, rotator cuff repair - BL, total knee arthroplasty - left Psychiatric History: Anxiety, Depression 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 - *Family History Paternal History Items: - - father had an aortic aneurysm Maternal History Items: Diabetes Lives: Alone Smoking Status: Former smoker - quit in 1987 Tobacco Use: Non-smoker Alcohol: Rare - occasional glass of wine Drugs: None Review of Systems - Review of Systems General: Denies: Fever, Night Sweats, Fatigue Cardiovascular: Denies: Chest Discomfort, Shortness of Breath, Orthopnea, PND, Peripheral Edema, Palpitations, Lightheadedness, Dizziness, Near Syncope, Syncope Respiratory: Denies: Cough, Sputum Production, Hemoptysis Gastrointestinal: Denies: Hematemesis, Hematochezia, Melena Genitourinary: Denies: Dysuria, Hematuria Skin: Denies: Rash Subjectve: Pleasant lady in no apparent distress Objective: Vital Signs Temp Pulse Resp BP Pulse Ox 97.8 F 59 L 20 H 146/71 H 96 07/10/17 15:52 07/10/17 15:52 07/10/17 15:52 07/10/17 15:52 07/10/17 15:52 Oxygen Delivery Method Room Air Intake and Output for Last 24 Hours 07/08/17 07/09/17 07/10/17 23:59 23:59 23:59 Intake Total 240 / 240 Balance 240 / 240 General: Awake, Alert, Oriented x 3 HEENT: PERRL, EOMI, Sclera Non Icteric Neck: Supple, Good ROM, No Lymph Node Enlargement Lungs: Clear to auscultation Cardiovascular: Regular Rhythm, Normal S1, Normal S2, No Murmurs, No Rubs, No Gallops Vascular: No Carotid Bruits, Normal Femoral Pulses, Normal Radial Pulses, Normal Dorsalis Pedal Pulse, Normal Posterior Tibial Pulses Abdomen: Bowel Sounds Present, Soft, Non Tender, No HSM, No Organomegaly Extremities: No Cyanosis, No Clubbing, No edema Neurological: No Focal Motor or Sensory Deficit Rhythm: EKG: Sinus bradycardia with no acute changes ECHO: Preserved left ventricular ejection fraction estimated EF 60% Stress Test: No evidence of ischemia Assessment/Plan 1. Uncontrolled hypertension. The patient was noted to be on a high dose beta-isabel as well as verapamil which caused significant bradycardia but with her blood pressure still been uncontrolled. Her echocardiogram has demonstrated preserved ejection fraction and she does not have any ischemia noted on her myocardial perfusion stress test. My recommendation will be to discontinue the negative chronotropic medications and use an BUDDY inhibitor with lisinopril 20 mg twice a day to control her blood pressure. After her heart rate has improved she may be able to tolerate a low-dose of beta-isabel such as Toprol-XL 50 mg a day. I am hesitant to discontinue both the metoprolol as well as the verapamil due to reflex tachycardia. Her blood pressure will be reviewed in a.m. Thank you for allowing me to participate in the care of your patient. Please don't hesitate to call if any issues arise
[2017-07-10] MEDS: Lisinopril 20 MG Tablet PO (21:52)
[2017-07-11] VITALS (13 sets, daily range): BP systolic 143–175; BP diastolic 49–76; PULSE 45–81; RESP 16–18; TEMP 36.5–37; O2SAT 96–99
[2017-07-11] MEDS: hydrALAZINE 20 MG/ML Vial 10 MG IV (03:37)
[2017-07-11] MEDS: 0.9% NaCl Peripheral Flush Adult/Peds IV (03:38)
[2017-07-11] MEDS: hydrALAZINE 25 MG Tablet PO (06:06)
[2017-07-11 06:36] LABS: Anion Gap 10 (5-15); BUN 11 mg/dL (7-18); BUN/Creat Ratio 16.4 RATIO (10-20); Calcium,Total 8.7 mg/dL (8.5-10.1); Chloride 108 mmol/L (98-107); Creatinine, Serum 0.67 mg/dL (0.55-1.02); EST Glomerular Filtration Rate 90 mL/min (>60); Est Glom Filt Rate - Afr Amer 109 mL/min (>60); Estimated Creatinine Clearance 38.75 ml/min; Glucose 121 mg/dL (74-106); Potassium 3.9 mmol/L (3.5-5.1); Sodium Level 144 mmol/L (136-145)
--- NOTE | 2017-07-11 07:05 | RDU_ITS ---
Reason For Study: HTN Right Renal Artery Left Renal Artery Right renal artery ostium 164/29.3 Left renal artery ostium 171/33.0 RSV/EDV. PSV/EDV. Right renal artery proximal Left renal artery proximal PSV/EDV 180/29.0 PSV/EDV. 170/28.1 . Right renal artery mid 180/27.5 Left renal artery mid 137/23.2 PSV/EDV. PSV/EDV . Right renal artery distal 132/20.8 Left renal artery distal 132/18.3 PSV/EDV. PSV/EDV. Right RAR 2.1. Left RAR 2.0. Right Renal Parenchyma Left Renal Parenchyma Upper Pole Medula 51.3/20.2 Left upper pole medulla 49.5/11.0 PSV/EDV. PSV/EDV . Right upper pole medulla EDR .39 . Left upper pole medulla EDR .22 . Right upper pole medulla R.I. .61 . Left upper pole medulla R.I. .78 . Upper Ramu Cortx 31.8/10.4 PSV/EDV. UP Cortex 28.7/10.4 PSV/EDV. Right upper pole cortex EDR .33 . Left upper pole cortex EDR .36 . Right upper pole cortex R.I. .67 . Left upper pole cortex R.I. .64 . Right lower Pole medulla 45.2/11.6 Left lower Pole medulla 45.2/11.0 PSV/EDV . PSV/EDV . Right lower pole medulla EDR .26 . Left lower pole medulla EDR .24 . Right lower pole medulla R.I. .74 . Left lower pole medulla R.I. .76 . Lower Pole Cortex 24.4/7.94 Lower Pole Cortx 32.4/10.4 PSV/EDV. PSV/EDV. Left lower pole cortex EDR .32 . Right lower pole cortex EDR .33 . Left lower pole cortex R.I. .68 . Right lower pole cortex R.I. .67 . Left Renal Hilar Right Renal Hilar Left hilar acceleration time 51 Right hilar acceleration time 51 m/sec. m/sec. LT Hilar avg 68.4/12.2 PSV/EDV . Right Hilar avg 50.7/18.9 PSV/EDV. Left Renal Dimensions Right Renal Dimensions Left kidney size 10.6 cm . Right kidney size 9.8 cm . Left cortical dimension 1.39 cm . Right cortical dimension 1.01 cm . Hypoechois area measuring 2.25 x 2.09 cm. Area is nonvascular. Aorta Proximal abdominal aorta 2.22 x 2.48 cm . Proximal abdominal aorta peak systolic velocity is 86.6 cm/sec . Distal abdominal aorta 1.62 x 1.40 cm . Distal abdominal aorta peak systolic velocity is 51.1 cm/sec . Normal renal veins bilat. Interpretation Summary The intra-abdominal aorta is not aneurysmal, though the proximal intra-abdominal aorta is ectatic. Renal artery velocities are bilaterally normal. Acceleration times are normal bilaterally. Renal- aortic ratios are also bilaterally normal. There is no evidence of hemodynamically significant renal artery stenosis on either side. Cortical dimensions are bilaterally normal. Kidneys appear normal in size bilaterally. A non-vascular, hypoechoic structure is noted in the right kidney, measuring 2.25 cm x 2.09 cm. This may represent a renal cyst. Clinical correlation is advised. Ordering Physician: Grisel Lovelace Referring Physician: Amari Mathur Performed By: Ja Vega RVT
[2017-07-11] MEDS: hydrALAZINE 50 MG Tablet PO ×2 (08:19→13:56)
[2017-07-11] MEDS: Aspirin E.C. 81 MG Tablet PO (08:20)
[2017-07-11] MEDS: Acetaminophen 325 MG Tablet 650 MG PO ×2 (08:24→14:22)
[2017-07-11] MEDS: HYDROCHLOROTHIAZIDE 12.5 MG CAPSULE PO (08:26)
[2017-07-11] MEDS: Lisinopril 20 MG Tablet PO (08:26)
[2017-07-11] MEDS: Enoxaparin 40 MG/0.4 ML Syringe SC (08:26)
[2017-07-11] MEDS: Citalopram 40 MG TABLET PO (08:26)
--- NOTE | 2017-07-11 08:50 | PN.CARD_ITS ---
Subjectve: Patient seen and evaluated. Appears to be stable doing better today. Objective: Vital Signs Temp Pulse Resp BP Pulse Ox 98.6 F 56 L 16 160/49 H 96 07/11/17 08:32 07/11/17 08:32 07/11/17 08:32 07/11/17 08:32 07/11/17 08:32 Oxygen Delivery Method Room Air Intake and Output for Last 24 Hours 07/09/17 07/10/17 07/11/17 23:59 23:59 23:59 Intake Total 480 / 480 240 / 240 Balance 480 / 480 240 / 240 General: Awake, Alert, Oriented x 3 HEENT: PERRL, EOMI, Sclera Non Icteric Neck: Supple, Good ROM, No Lymph Node Enlargement Lungs: Clear to auscultation Cardiovascular: Regular Rhythm, Normal S1, Normal S2, No Murmurs, No Rubs, No Gallops Vascular: No Carotid Bruits, Normal Femoral Pulses, Normal Radial Pulses, Normal Dorsalis Pedal Pulse, Normal Posterior Tibial Pulses Abdomen: Bowel Sounds Present, Soft, Non Tender, No HSM, No Organomegaly Extremities: No Cyanosis, No Clubbing, No edema Neurological: No Focal Motor or Sensory Deficit 07/11/17 05:40: Sodium 144, Potassium 3.9, Chloride 108 H, Carbon Dioxide 26.0, Anion Gap 10, BUN 11, Creatinine 0.67, Est GFR (MDRD) Af Amer 109, Est GFR (MDRD ) Non-Af 90, BUN/Creatinine Ratio 16.4, Glucose 121 H, Calcium 8.7, Magnesium 2.0 Rhythm: EKG: ECHO: Stress Test: Cardiac Cath: PCI: CT Surgery: Holter monitor: EPS: PPM: CXR: Chest CT Scan: Medical Necessity - Tobacco Use Smoking Status: Former smoker - quit in 1987 Tobacco Use: Non-smoker Assessment/Plan 1. Uncontrolled hypertension. The patient was noted to be on a high dose beta-mo as well as verapamil which caused significant bradycardia but with her blood pressure still been uncontrolled. Her echocardiogram has demonstrated preserved ejection fraction and she does not have any ischemia noted on her myocardial perfusion stress test. My recommendation will be to discontinue the negative chronotropic medications and use an BUDDY inhibitor with lisinopril 20 mg twice a day to control her blood pressure. After her heart rate has improved she may be able to tolerate a low-dose of beta-mo such as Toprol-XL 50 mg a day. I am hesitant to discontinue both the metoprolol as well as the verapamil due to reflex tachycardia. Her blood pressure and heart rate today appear to be doing better. She can be seen in the office in 10-14 days and further adjustments made. Thank you for allowing me to participate in the care of your patient. Please don't hesitate to call if any issues arise
--- NOTE | 2017-07-11 09:49 | CASEMGMT ---
Face to Face with patient for initial transition planning/care coordination assessment. STACY PABLO introduced self and role at [facility], pt voices understanding and consents to assessment at this time. Pt is lying in bed in no distress at this time. Pt is A/O x4 and answers all questions appropriately at this time. Care providers, pharmacy, and demographics verified. See attached link. Pt voices no further concerns/needs at this time. Advised pt to ask for CM if any further questions/concerns/needs arise, voices understanding. PLAN[place] STACY PABLO
--- NOTE | 2017-07-11 16:27 | PCM.DC ---
- Discharge Diagnoses Current Active Problems: Current Active and Chronic Problems Atypical chest pain (Acute) HTN (hypertension) (Chronic) GERD (gastroesophageal reflux disease) (Chronic) You will use the following diet at home:: Cardiac Your food should be the consistency of: Regular Your liquids should be the consistency of: Regular/Thin Discharge Activity: Return to Normal Activity Call your doctor if you observe: Fever of 101 or Higher, Shortness of breath, Dizziness, Fainting spells, Swelling in the ankles, Calf discomfort, - - wheezing, dry cough, swelling of the tongue or face Additional Instructions: My cell phone number is [phone]. Call me Monday afternoon for the results of the ultrasound of the kidneys. You are a kick in the pants [place]. It was a pleasure meeting you and talking with you. Stay young! If you are looking for a new doctor when Dr. Mathur retires I have [address] Javon Ventura and [address] Francisco Espino. Their office is on [facility] in [place] and they are both taking new patients....You will like them...they are down to earth and they LISTEN. Pending Tests on Discharge: results of the renal artrery ultrasound Allergies/Adverse Reactions: Allergies Sulfa (Sulfonamide Antibiotics) Allergy (Verified 07/09/17 10:21) Hives [facility] besylate [[facility] Adverse Reaction (Verified 07/09/17 10:21) Swelling Medications to take at Discharge Aspirin E.C. [Ecotrin] 325 mg PO DAILY@0800 04/23/13 Citalopram Hydrobromide [Citalopram HBr] 40 mg PO DAILY 07/09/17 Loperamide HCl [Anti-Diarrheal] 2 mg PO PRN PRN 07/09/17 [place]-3 Fatty Acids/Fish Oil [Fish Oil 1,000 mg Capsule] 2 each PO BID 07/09/17 Omeprazole Magnesium [Prilosec Otc] 20 mg PO QHS 07/09/17 Oxybutynin Chloride [Ditropan Xl] 10 mg PO DAILY 07/09/17 Potassium Chloride 10 meq PO BID 07/09/17 Hydrochlorothiazide 12.5 mg PO DAILY #30 cap 07/11/17 Lisinopril [Zestril] 20 mg PO BID #60 tab 07/11/17 hydrALAZINE [Apresoline] 50 mg PO TID #90 tab 07/11/17 The following prescriptions were given: Hydrochlorothiazide 12.5 mg PO DAILY #30 cap Lisinopril [Zestril] 20 mg PO BID #60 tab hydrALAZINE [Apresoline] 50 mg PO TID #90 tab Primary Care Physician: Amari Mathur MD [Primary Care Provider] - Please follow up with your Primary Care Physician in: 5-7 days Please Follow Up With: Romario Allen MD When: 10 days Proposed Discharge Date: 07/11/17
--- NOTE | 2017-07-11 16:38 | DCINST_ITS ---
- Discharge Diagnoses Current Active Problems: Current Active and Chronic Problems Atypical chest pain (Acute) HTN (hypertension) (Chronic) GERD (gastroesophageal reflux disease) (Chronic) You will use the following diet at home:: Cardiac Your food should be the consistency of: Regular Your liquids should be the consistency of: Regular/Thin Discharge Activity: Return to Normal Activity Call your doctor if you observe: Fever of 101 or Higher, Shortness of breath, Dizziness, Fainting spells, Swelling in the ankles, Calf discomfort, - - wheezing, dry cough, swelling of the tongue or face Additional Instructions: My cell phone number is [phone]. Call me Monday afternoon for the results of the ultrasound of the kidneys. You are a kick in the pants [place]. It was a pleasure meeting you and talking with you. Stay young! If you are looking for a new doctor when Dr. Mathur retires I have [address] Javon Ventura and Dr[address] Francisco Espino. Their office is on [facility] in [place] and they are both taking new patients....You will like them...they are down to earth and they LISTEN. Pending Tests on Discharge: results of the renal artrery ultrasound Allergies/Adverse Reactions: Allergies Sulfa (Sulfonamide Antibiotics) Allergy (Verified 07/09/17 10:21) Hives amlodipine besylate [From [facility]] Adverse Reaction (Verified 07/09/17 10:21) Swelling Medications to take at Discharge Aspirin E.C. [Ecotrin] 325 mg PO DAILY@0800 04/23/13 Citalopram Hydrobromide [Citalopram HBr] 40 mg PO DAILY 07/09/17 Loperamide HCl [Anti-Diarrheal] 2 mg PO PRN PRN 07/09/17 [place]-3 Fatty Acids/Fish Oil [Fish Oil 1,000 mg Capsule] 2 each PO BID 07/09/17 Omeprazole Magnesium [Prilosec Otc] 20 mg PO QHS 07/09/17 Oxybutynin Chloride [Ditropan Xl] 10 mg PO DAILY 07/09/17 Potassium Chloride 10 meq PO BID 07/09/17 Hydrochlorothiazide 12.5 mg PO DAILY #30 cap 07/11/17 Lisinopril [Zestril] 20 mg PO BID #60 tab 07/11/17 hydrALAZINE [Apresoline] 50 mg PO TID #90 tab 07/11/17 The following prescriptions were given: Hydrochlorothiazide 12.5 mg PO DAILY #30 cap Lisinopril [Zestril] 20 mg PO BID #60 tab hydrALAZINE [Apresoline] 50 mg PO TID #90 tab Primary Care Physician: Amari Mathur MD [Primary Care Provider] - Please follow up with your Primary Care Physician in: 5-7 days Please Follow Up With: Romario Allen MD When: 10 days Proposed Discharge Date: 07/11/17
--- NOTE | 2017-07-11 16:43 | PCM.DC.SUM ---
Discharge Date and Diagnosis - Problem List Patient Problems: Active and Suspected Problems Severe sinus bradycardia (Acute) Hyperglycemia (Acute) Atypical chest pain (Acute) Date of Admission: 07/09/17 Date of Discharge: 07/11/17 - Primary Discharge Diagnosis Active and Suspected Problems Atypical chest pain (Acute) Severe sinus bradycardia (Acute) Hyperglycemia (Acute) with a normal HGBA1C Uncontrolled HTN - Secondary Discharge Diagnosis Chronic Problems Pulmonary hypertension, mild (Chronic) Osteoarthritis (Chronic) Hiatal hernia (Chronic) - large HLD (hyperlipidemia) (Chronic) HTN (hypertension) (Chronic) GERD (gastroesophageal reflux disease) (Chronic) Hospital Course and Treatment Imaging Results: Clinical Impression(s) from Imaging Studies Chest X-Ray 07/09/17 10:43 IMPRESSION: No active pulmonary disease. Electronically Signed: Alan Byrd MD at 11:49 EDT Tel , Service support , Chest CTA 07/09/17 12:14 IMPRESSION: 1. Limited CTA due to less than optimal contrast enhancement of the bilateral peripheral pulmonary arteries. No suspicious or obvious pulmonary thromboemboli. 2. Nonocclusive calcified and noncalcified plaques along the thoracic aorta without aneurysmal dissection or thoracic aneurysm. 3. Large gastric hernia in the posterior mediastinum. Electronically Signed: Cooper Morillo MD at 13:58 EDT , Service support , Dr. Jean-Baptisteori -cardiology/[facility] Operations: None Procedures: 2-D Echocardiogram, Stress test Summary of Care Provided: The patient is a 82 year old F with a PMH of HTN, GERD, OA and anxiety/depression who presented to the ED at [facility] on 07/09/17 c/o substernal chest pain. The pain started at rest and and was non-radiating. She had SOB but denied diaphoresis and nausea. The pain started after breakfast while she was sitting down. She had coffee and cinnamon toast for breakfast. She was given a total of 3 NTG and it did not relieve the pain. She received 50 mcg of Fentanyl in the ED and this helped with the pain although she still had some residual. The pain increased with a deep breath. She told me that on 06/11 Dr. Mathur doubled her Metoprolol because of uncontrolled BP. She did not know the dose and had no list of her meds with her at the time of admission. Vital signs at presentation to the emergency room were temperature 98.7, pulse rate 51, blood pressure 185/73, respiratory rate 16 and she was 96-98% saturated on room air. Blood pressure was very erratic/labile and ranged from 125/71 to 204/73 while in the ED. The EKG showed SB but no ischemic changes. Chest x-ray showed no pulmonary vascular congestion, pleural effusions or infiltrates. Significant lab included an elevated blood glucose at 164 and an initial troponin of less than 0.015. CTA of the chest was negative for aneurysm and also for PE, although there was less than optimal enhancement of the BL pulmonary arteries. There was a large gastric HH in the posterior mediastinum. RACHELL score was 3 and she was admitted to a monitored bed on PCU for observation, serial CE's, ECHO and a stress in the AM if the CE's are negative. Overnight on Telemetry she had severe bradycardia with heart rates in the 30's. Metoprolol was discontinued and she was started on Lisinopril and Hydralazine. The stress was negative and she had an EF of 76% on the nuclear study. The echocardiogram showed a 60% left ventricular ejection fraction at rest with transmitral diastolic flow velocities suggestive of mild, stage I, diastolic dysfunction. The pulmonary artery systolic pressure was mildly increased at 42 which is consistent with mild pulmonary hypertension. After the stress she was still bradycardic and she was kept in the hospital overnight again. She was seen in consult by Dr. Allen who agreed with discontinuation of the beta mo. Hydralazine dose was increased and HCTZ 12.5 mg was added to the drug regimen. At the time of discharge her heart rate is 81 bpm with a blood pressure of 143/66. She is 96-100% saturated on room air. She had a renal artery ultrasound to evaluate for renal artery stenosis as the etiology of her recently increasing blood pressures. The report is pending at the time of discharge. She was discharged home with prescriptions for hydralazine 50 mg 3 times daily, hydrochlorothiazide 12.5 mg daily and lisinopril 20 mg twice daily. BMP at the time of discharge showed normal electrolytes with a BUN of 11 and a creatinine of 0.67. She will follow up with Dr. Allen in the office in 10 days to check her blood pressure. She was instructed to follow-up with Dr. Mathur in the office in the next 5-7 days. Would repeat a BMP in 7-10 days to look at the creatinine and potassium. If she has recurrent chest pain I would be suspicious of GERD secondary to large hiatal hernia and consider starting on a BID [id number] or PPI. She is going to call me post DC for the results of the renal artery US. General: alert, oriented X3, NAD, appropriate with normal affect Neck: supple, trachea midline, carotids have brisk upstroke and normal pulse volume, no JVD, no carotid bruits Lungs: CTA, symmetric chest expansion, not tachypneic, able to lie flat with no respiratory distress Heart: bradycardic rate and rhythm, normal S1, normal S2, no murmur, no gallop, no rub, PMI is on the midclavicular line Abdomen: soft, NT, ND, BS's present Extremities: no edema, no calf tenderness, peripheral pulses are normal This note was generated with [employer] dictation software. It may contain incorrect words, spelling, and punctuation that were not noted in checking the note before signing. Discharge Activity: Return to Normal Activity Call your doctor if you observe: Fever of 101 or Higher, Shortness of breath, Dizziness, Fainting spells, Swelling in the ankles, Calf discomfort, - - wheezing, dry cough, swelling of the tongue or face Home Medications: Medications to take at Discharge Aspirin E.C. [Ecotrin] 325 mg PO DAILY@0800 04/23/13 Citalopram Hydrobromide [Citalopram HBr] 40 mg PO DAILY 07/09/17 Loperamide HCl [Anti-Diarrheal] 2 mg PO PRN PRN 07/09/17 [place]-3 Fatty Acids/Fish Oil [Fish Oil 1,000 mg Capsule] 2 each PO BID 07/09/17 Omeprazole Magnesium [Prilosec Otc] 20 mg PO QHS 07/09/17 Oxybutynin Chloride [Ditropan Xl] 10 mg PO DAILY 07/09/17 Potassium Chloride 10 meq PO BID 05/20/18 Hydrochlorothiazide 12.5 mg PO DAILY #30 cap 07/11/17 Lisinopril [Zestril] 20 mg PO BID #60 tab 07/11/17 hydrALAZINE [Apresoline] 50 mg PO TID #90 tab 07/11/17 Following Prescrptions Were Given to Patient: Hydrochlorothiazide 12.5 mg PO DAILY #30 cap Lisinopril [Zestril] 20 mg PO BID #60 tab hydrALAZINE [Apresoline] 50 mg PO TID #90 tab Primary Care Physician: Amari Mathur MD [Primary Care Provider] - Please follow up with your Primary Care Physician in: 5-7 days Please Follow Up With: Romario Allen MD When: 10 days Disposition: Home Minutes spent on discharge:: 35 Patient Condition:: Good Medical Necessity - Tobacco Use Smoking Status: Former smoker - quit in 1987 Tobacco Use: Non-smoker Meaningful Use Info Meaningful Use Diagnoses (Choose all that apply): None applicable Code Visit Inpatient E&M: 61531 Disch Hosp
--- NOTE | 2017-07-11 16:58 | DS.PCM_ITS ---
Discharge Date and Diagnosis - Problem List Patient Problems: Active and Suspected Problems Severe sinus bradycardia (Acute) Hyperglycemia (Acute) Atypical chest pain (Acute) Date of Admission: 07/09/17 Date of Discharge: 07/11/17 - Primary Discharge Diagnosis Active and Suspected Problems Atypical chest pain (Acute) Severe sinus bradycardia (Acute) Hyperglycemia (Acute) with a normal HGBA1C Uncontrolled HTN - Secondary Discharge Diagnosis Chronic Problems Pulmonary hypertension, mild (Chronic) Osteoarthritis (Chronic) Hiatal hernia (Chronic) - large HLD (hyperlipidemia) (Chronic) HTN (hypertension) (Chronic) GERD (gastroesophageal reflux disease) (Chronic) Hospital Course and Treatment Imaging Results: Clinical Impression(s) from Imaging Studies Chest X-Ray 07/09/17 10:43 IMPRESSION: No active pulmonary disease. Electronically Signed: Alan Byrd MD at 11:49 EDT Tel , Service support , Chest CTA 07/09/17 12:14 IMPRESSION: 1. Limited CTA due to less than optimal contrast enhancement of the bilateral peripheral pulmonary arteries. No suspicious or obvious pulmonary thromboemboli. 2. Nonocclusive calcified and noncalcified plaques along the thoracic aorta without aneurysmal dissection or thoracic aneurysm. 3. Large gastric hernia in the posterior mediastinum. Electronically Signed: Cooper Morillo MD at 13:58 EDT , Service support , Dr. Jean-Baptisteori -cardiology/[facility] Operations: None Procedures: 2-D Echocardiogram, Stress test Summary of Care Provided: The patient is a 82 year old F with a PMH of HTN, GERD, OA and anxiety/ depression who presented to the ED at [facility] on 07/09/17 c/o substernal chest pain. The pain started at rest and and was non-radiating. She had SOB but denied diaphoresis and nausea. The pain started after breakfast while she was sitting down. She had coffee and cinnamon toast for breakfast. She was given a total of 3 NTG and it did not relieve the pain. She received 50 mcg of Fentanyl in the ED and this helped with the pain although she still had some residual. The pain increased with a deep breath. She told me that on 06/11 Dr. Mathur doubled her Metoprolol because of uncontrolled BP. She did not know the dose and had no list of her meds with her at the time of admission. Vital signs at presentation to the emergency room were temperature 98.7, pulse rate 51, blood pressure 185/73, respiratory rate 16 and she was 96-98% saturated on room air. Blood pressure was very erratic/labile and ranged from 125/71 to 204/73 while in the ED. The EKG showed SB but no ischemic changes. Chest x-ray showed no pulmonary vascular congestion, pleural effusions or infiltrates. Significant lab included an elevated blood glucose at 164 and an initial troponin of less than 0.015. CTA of the chest was negative for aneurysm and also for PE, although there was less than optimal enhancement of the BL pulmonary arteries. There was a large gastric HH in the posterior mediastinum. RACHELL score was 3 and she was admitted to a monitored bed on PCU for observation, serial CE's, ECHO and a stress in the AM if the CE's are negative. Overnight on Telemetry she had severe bradycardia with heart rates in the 30's. Metoprolol was discontinued and she was started on Lisinopril and Hydralazine. The stress was negative and she had an EF of 76% on the nuclear study. The echocardiogram showed a 60% left ventricular ejection fraction at rest with transmitral diastolic flow velocities suggestive of mild, stage I, diastolic dysfunction. The pulmonary artery systolic pressure was mildly increased at 42 which is consistent with mild pulmonary hypertension. After the stress she was still bradycardic and she was kept in the hospital overnight again. She was seen in consult by Dr. Allen who agreed with discontinuation of the beta mo. Hydralazine dose was increased and HCTZ 12.5 mg was added to the drug regimen. At the time of discharge her heart rate is 81 bpm with a blood pressure of 143/66. She is 96-100% saturated on room air. She had a renal artery ultrasound to evaluate for renal artery stenosis as the etiology of her recently increasing blood pressures. The report is pending at the time of discharge. She was discharged home with prescriptions for hydralazine 50 mg 3 times daily, hydrochlorothiazide 12.5 mg daily and lisinopril 20 mg twice daily. BMP at the time of discharge showed normal electrolytes with a BUN of 11 and a creatinine of 0.67. She will follow up with Dr. Allen in the office in 10 days to check her blood pressure. She was instructed to follow-up with Dr. Mathur in the office in the next 5-7 days. Would repeat a BMP in 7-10 days to look at the creatinine and potassium. If she has recurrent chest pain I would be suspicious of GERD secondary to large hiatal hernia and consider starting on a BID [id number] or PPI. She is going to call me post DC for the results of the renal artery US. General: alert, oriented X3, NAD, appropriate with normal affect Neck: supple, trachea midline, carotids have brisk upstroke and normal pulse volume, no JVD, no carotid bruits Lungs: CTA, symmetric chest expansion, not tachypneic, able to lie flat with no respiratory distress Heart: bradycardic rate and rhythm, normal S1, normal S2, no murmur, no gallop, no rub, PMI is on the midclavicular line Abdomen: soft, NT, ND, BS's present Extremities: no edema, no calf tenderness, peripheral pulses are normal This note was generated with [employer] dictation software. It may contain incorrect words, spelling, and punctuation that were not noted in checking the note before signing. Discharge Activity: Return to Normal Activity Call your doctor if you observe: Fever of 101 or Higher, Shortness of breath, Dizziness, Fainting spells, Swelling in the ankles, Calf discomfort, - - wheezing, dry cough, swelling of the tongue or face Home Medications: Medications to take at Discharge Aspirin E.C. [Ecotrin] 325 mg PO DAILY@0800 04/23/13 Citalopram Hydrobromide [Citalopram HBr] 40 mg PO DAILY 07/09/17 Loperamide HCl [Anti-Diarrheal] 2 mg PO PRN PRN 07/09/17 [place]-3 Fatty Acids/Fish Oil [Fish Oil 1,000 mg Capsule] 2 each PO BID 07/09/17 Omeprazole Magnesium [Prilosec Otc] 20 mg PO QHS 07/09/17 Oxybutynin Chloride [Ditropan Xl] 10 mg PO DAILY 07/09/17 Potassium Chloride 10 meq PO BID 05/20/18 Hydrochlorothiazide 12.5 mg PO DAILY #30 cap 07/11/17 Lisinopril [Zestril] 20 mg PO BID #60 tab 07/11/17 hydrALAZINE [Apresoline] 50 mg PO TID #90 tab 07/11/17 Following Prescrptions Were Given to Patient: Hydrochlorothiazide 12.5 mg PO DAILY #30 cap Lisinopril [Zestril] 20 mg PO BID #60 tab hydrALAZINE [Apresoline] 50 mg PO TID #90 tab Primary Care Physician: Amari Mathur MD [Primary Care Provider] - Please follow up with your Primary Care Physician in: 5-7 days Please Follow Up With: Romario Allen MD When: 10 days Disposition: Home Minutes spent on discharge:: 35 Patient Condition:: Good Medical Necessity - Tobacco Use Smoking Status: Former smoker - quit in 1987 Tobacco Use: Non-smoker Meaningful Use Info Meaningful Use Diagnoses (Choose all that apply): None applicable Code Visit Inpatient E&M: 44140 Disch Hosp
== END 2017-07-11 17:23 | disposition home or self-care (01) | DRG 305 ==
LOC: ED 12:25 → PCU 13:19
PROVIDERS: Admitting Provider Internal Medicine; Emergency Provider Emergency Medicine; Family Provider Family Medicine; PCP Family Medicine; Visit Provider Internal Medicine
DX: I10 Essential (primary) hypertension (principal); R07.2 Precordial pain; R73.9 Hyperglycemia, unspecified; R00.1 Bradycardia, unspecified; K21.9 Gastro-esophageal reflux disease without esophagitis; M19.90 Unspecified osteoarthritis, unspecified site; K44.9 Diaphragmatic hernia without obstruction or gangrene; I27.20 Pulmonary hypertension, unspecified; F41.9 Anxiety disorder, unspecified; F32.9 Major depressive disorder, single episode, unspecified; Z87.891 Personal history of nicotine dependence; E78.5 Hyperlipidemia, unspecified
CPT/HCPCS: 36415; 71045; 71275; 78452; 80048; 80061; 80076; 83036; 83735; 84484; 85025; 93005; 93017; 93306; 93975; 99285; A9500; Q9967; A4216; J2785

== ENCOUNTER 2017-08-22 13:12 | Emergency (ER) | payer MEDICARE, OTHER, SELFPAY ==
[2017-08-22 13:13] VITALS: BP 165/74; PULSE 74; RESP 16; TEMP 37.1; O2SAT 98; BMI 26.6
--- NOTE | 2017-08-22 13:31 | CT_ITS ---
STUDY: CT ABDOMEN AND PELVIS WITHOUT CONTRAST REASON FOR EXAM: Female, 82 years old. Left rib pain following a fall. RADIATION DOSAGE (If Supplied By Facility): CTDIvol = ( 8.87 ) mGy, DLP = ( 423.40 ) mGycm TECHNIQUE: Transaxial images were obtained from the dome of the diaphragm to the symphysis pubis without oral contrast, and without intravenous contrast. Sagittal and coronal images were reconstructed. Individualized dose optimization techniques were used for this CT. COMPARISON: None. FINDINGS: Nondisplaced left 11th rib fracture. Minimally increased markings at the left lung base just above the atelectasis. Coronary artery calcification. Calcification of the aortic root. Normal liver. There are surgical clips in the gallbladder fossa consistent with a prior cholecystectomy. Normal spleen. Normal pancreas. There is a small, circumscribed, smooth, low attenuation left adrenal mass, consistent with an adrenal adenoma. This measures 1.7 cm. Normal right adrenal gland. Normal right kidney. Normal left kidney. Moderate sized hiatal hernia. Normal small intestine. There are multiple colonic diverticula consistent with diverticulosis. The appendix is visualized and appears normal. There is diffuse atherosclerotic calcification of the abdominal aorta and its major visceral branches, without a demonstrated aneurysm. Normal inferior vena cava. Normal retroperitoneum. Normal urinary bladder. There is absence of the uterus consistent with a prior hysterectomy. Small benign-appearing bilateral inguinal lymph nodes. There are diffuse degenerative changes of the visualized lumbar spine. CT/Abdomen/Pelvis without Cont IMPRESSION: Nondisplaced left 11th rib fracture. Mild left basilar atelectasis. Electronically Signed: Ancelmo Higgins MD at 14:33 EDT Tel [phone], Service support ,
[2017-08-22] MEDS: oxyCODONE 5 MG Tablet 10 MG PO (13:37)
--- NOTE | 2017-08-22 13:52 | RAD_ITS ---
STUDY: X-RAY - UNILATERAL RIBS ( LEFT ) WITH CHEST REASON FOR EXAM: Female, 82 years old. Pain and bruising overlying the left ribs following a fall. TECHNIQUE - RIBS: 4 view(s) of the ribs. TECHNIQUE - CHEST: Single PA view of the chest. COMPARISON: None. FINDINGS - RIBS: Nondisplaced fracture along the anterolateral aspect of the left eighth and ninth ribs. FINDINGS - CHEST: The lungs are clear and expanded. Scattered calcified granulomas. There is no demonstrated pleural abnormality. Normal size heart. Normal mediastinum and alejandro. Normal visualized pulmonary arteries. There is atherosclerotic calcification of the aortic arch with tortuosity. Normal visualized thoracic spine. Prior bilateral rotator cuff repair. Hiatal hernia. Prior cholecystectomy. RAD/Ribs Uni Min 3V w/PA Chest IMPRESSION: RIBS: Nondisplaced fractures of the left eighth and ninth ribs anterolaterally. CHEST: No acute abnormality is seen. Electronically Signed: Ancelmo Higgins MD at 14:37 EDT Tel [phone], Service support ,
--- NOTE | 2017-08-22 15:03 | ED.VISSUMM ---
- ER Visit Summary Date of Service: 08/22/17 Chief Complaint: Fall History of Present Illness: The patient is a [address] Bloom. She reports that 3 days ago she missed a step and fell onto her left flank. She has lower chest pain on that side that is 10 out of 10 severity. Is worsened with deep breaths. She does report that she is mildly short of breath. She denies any blow to the head or loss of consciousness. She is not on any blood thinners. No neck, shoulder, wrist, or hip pain. Physical Examination: Vitals: Stable. Afebrile. Neck: No vertebral tenderness. Full ROM without difficulty. Cleared by NEXUS criteria. Back: No vertebral tenderness. General: A&O x 3. NAD. Cardiovascular exam: Regular rate and rhythm, no murmur, rub or gallop. Respiratory exam: Severe tenderness palpation to the lower ribs on the left. No pain with anterior posterior compression of the chest.. No crepitus. Clear to auscultation bilaterally. No wheezes or stridor. Abdominal exam: Soft, mild left upper quadrant tenderness to palpation, nondistended, normal bowel sounds. No pain in RUQ specifically. No peritoneal signs. Extremity: Atraumatic. No pain with range of motion. Test Results: Left rib series showed nondisplaced fractures of her eighth and ninth rib without pneumothorax. CT flank shows a nondisplaced 11th rib fracture. Normal spleen. Emergency Department Course and Treatment: Patient was treated with oxycodone is resting comfortably. Treatment Plan: Patient will be discharged with an incentive spirometer and Percocet. Instructed follow-up her primary care physician 1 week if not improving. Return to the emergency department for any worsening symptoms. Disposition: To home in improved and stable condition. Impression: 1. Left eighth, ninth, and 11th rib fractures. 2. Mechanical fall. This note was generated with [employer] dictation software. It may contain incorrect words, spelling, and punctuation that were not noted in review of the chart prior to signing ED Disposition - Plan for ED Patient: Disposition: Home or Assisted Living Chief Complaint: Fall Instructions: ED Fx Rib Prescriptions: Oxycodone HCl/Acetaminophen [Percocet 5/325] 1 tablet PO Q6H PRN PRN 5 Days #20 tablet PRN Reason: Pain Docusate Sodium [Colace] 100 mg PO DAILY #20 capsule Referrals: Amari Mathur MD [Primary Care Provider] - 1 Week if not improving
[2017-08-22 15:24] VITALS: BP 165/71; PULSE 71; RESP 16; O2SAT 97
== END 2017-08-22 15:25 | disposition home or self-care (01) ==
PROVIDERS: Emergency Provider Emergency Medicine; Family Provider Family Medicine; PCP Family Medicine
DX: R07.9 Chest pain, unspecified (principal); S22.42XA Multiple fractures of ribs, left side, initial encounter for closed fracture; W10.9XXA Fall (on) (from) unspecified stairs and steps, initial encounter; Y92.9 Unspecified place or not applicable; K21.9 Gastro-esophageal reflux disease without esophagitis; I10 Essential (primary) hypertension; I27.20 Pulmonary hypertension, unspecified; Z79.82 Long term (current) use of aspirin; Z79.899 Other long term (current) drug therapy
CPT/HCPCS: 71101; 74176; 99283

== ENCOUNTER → 2017-10-06 11:24 | Outpatient (CLI) | payer MEDICARE, OTHER, SELFPAY ==
[2017-10-06 12:42] LABS: Anion Gap 10 (5-15); BUN 11 mg/dL (7-18); Calcium,Total 8.8 mg/dL (8.5-10.1); Chloride 102 mmol/L (98-107); Creatinine, Serum 0.84 mg/dL (0.55-1.02); EST Glomerular Filtration Rate 69 mL/min (>60); Est Glom Filt Rate - Afr Amer 84 mL/min (>60); Glucose 116 mg/dL (74-106); Magnesium 1.9 mg/dL (1.6-2.6); Sodium Level 138 mmol/L (136-145)
== END ==
PROVIDERS: Family Provider Internal Medicine; PCP Internal Medicine; Visit Provider Internal Medicine
DX: I10 Essential (primary) hypertension (principal)
CPT/HCPCS: 36415; 80048; 83735

== ENCOUNTER → 2017-12-14 10:47 | Outpatient (CLI) | payer MEDICARE, OTHER, SELFPAY ==
[2017-12-14 11:44] LABS: Anion Gap 9 (5-15); BUN 12 mg/dL (7-18); BUN/Creat Ratio 15.1 RATIO (10-20); Calcium,Total 9.2 mg/dL (8.5-10.1); Chloride 103 mmol/L (98-107); EST Glomerular Filtration Rate 74 mL/min (>60); Est Glom Filt Rate - Afr Amer 89 mL/min (>60); Glucose 138 mg/dL (74-106); Potassium 3.7 mmol/L (3.5-5.1); Sodium Level 139 mmol/L (136-145)
== END ==
PROVIDERS: Family Provider Internal Medicine; PCP Internal Medicine; Referring Provider Internal Medicine; Visit Provider Internal Medicine
DX: I10 Essential (primary) hypertension (principal)
CPT/HCPCS: 36415; 80048

== ENCOUNTER → 2018-09-18 | Outpatient (CLI) | payer MEDICARE, OTHER, SELFPAY ==
[2018-09-18 08:37] VITALS: BMI 26.7
[2018-09-18 12:12] LABS: Absolute Neutrophil Count 3.1 X10^3/uL (2.0-7.7); Basophil# 0.02 X10^3/uL; Basophil% 0.4 % (0-1); Eosinophil# 0.15 X10^3/uL; Eosinophils% 2.8 % (0-5); Hematocrit 36.5 % (37-47); Hemoglobin 12.6 g/dL (12.0-15.0); Mean Corp Hgb Conc 34.5 g/dL (32-36); Mean Corpuscular Hgb 33.6 pg (27.0-32.0); Mean Corpuscular Volume 97.3 fL (81-99); Mean Platelet Vol. 10.6 fl (6.2-12.0); Monocyte% 9.4 % (0-10); NRBC Flagged by Analyzer 0 % (0-5); Neutrophil # 3.05 X10^3/uL (2.7-7.7); Neutrophil % 57.2 % (47-70); Platelet Count 189 K/mm3 (150-450); RBC Distribution Width CV 12.8 % (11.6-14.6); RBC Distribution Width SD 44.2 fl (35.1-43.9); Red Blood Count 3.75 M/mm3 (4.2-5.4); White Blood Count 5.3 K/mm3 (4.4-11.0)
[2018-09-18 12:30] LABS: AST(SGOT) 16 U/L (15-37); Alanine Aminotransfer ALT/SGPT 25 U/L (13-56); Albumin, Serum 3.9 g/dL (3.2-5.0); Alkaline Phosphatase 54 U/L (45-117); Anion Gap 9 (5-15); BUN 15 mg/dL (7-18); BUN/Creat Ratio 17.1 RATIO (10-20); Chloride 106 mmol/L (98-107); Cholesterol 242 mg/dL (200); Creatinine, Serum 0.88 mg/dL (0.55-1.02); EST Glomerular Filtration Rate 66 mL/min (>60); Est Glom Filt Rate - Afr Amer 79 mL/min (>60); Globulin 3.9 g/dL (2.2-4.2); Glucose 112 mg/dL (74-106); High Density Lipoprotein 37 mg/dL; Potassium 4.1 mmol/L (3.5-5.1); Protein, Total 7.8 g/dL (6.4-8.2); Sodium Level 142 mmol/L (136-145); Triglycerides 257 mg/dL; Very Low Density Lipoprotein 51 mg/dL (5-40)
== END | disposition home or self-care (01) ==
LOC: BIMLAB 08:58
PROVIDERS: Family Provider Internal Medicine; PCP Internal Medicine; Visit Provider Internal Medicine
DX: K21.9 Gastro-esophageal reflux disease without esophagitis (principal); E78.5 Hyperlipidemia, unspecified
CPT/HCPCS: 36415; 80053; 80061; 85025

== ENCOUNTER → 2018-11-01 16:13 | Outpatient (CLI) | payer MEDICARE, OTHER, SELFPAY ==
[2018-11-01 14:02] VITALS: BMI 26.4
[2018-11-01 16:31] LABS: Bacteria 0 SEEN /hpf (None Seen); Red Blood Cells-Urine 0 SEEN /hpf (0-5)
[2018-11-01 16:39] LABS: Color, Urine Yellow (Yellow); Glucose, Dipstick Normal (Normal); Ketone-Dipstick 5 mg/dl (Negative); Leukocyte Esterase-Dipstick 25 /ul (Negative); Nitrite-Dipstick Negative (Negative); Occult Blood-Urine Negative /ul (Negative); Protein-Dipstick 15 mg/dl (Negative); Specific Gravity, Urine 1.015 (1.002-1.030); Urine Clarity Sl. Cloudy (Clear); Urine Urobilinogen 1 mg/dl (Normal)
[2018-11-01 16:44] LABS: Urine Bilirubin Dipstick 1 mg/dL (Negative)
[2018-11-01 16:56] LABS: Hyaline Cast >100 SEEN /lpf (0-5)
[2018-11-01 16:58] LABS: Mucous, Urine 2+ /hpf (<or=2+); Squamous Epithelial Cells - UA 0-5 SEEN /hpf (5-10); White Blood Cells 0-5 SEEN /hpf (0-5)
[2018-11-01 16:59] LABS: Yeast-Urine RARE /hpf (None Seen)
== END ==
PROVIDERS: Family Provider Internal Medicine; PCP Internal Medicine; Referring Provider Internal Medicine; Visit Provider Internal Medicine
DX: R30.0 Dysuria (principal); R53.81 Other malaise; R53.83 Other fatigue
CPT/HCPCS: 81001; 87086; 87088

== ENCOUNTER → 2019-12-03 15:25 | Outpatient (CLI) | payer MEDICARE, OTHER, SELFPAY ==
[2019-12-03 14:41] VITALS: BMI 26.9
[2019-12-03 16:56] LABS: Absolute Lymphocyte Count 1.75 X10^3/uL (0.83-4.51); Absolute Neutrophil Count 3.8 X10^3/uL (2.0-7.7); Basophil# 0.02 X10^3/uL; Basophil% 0.3 % (0-1); Eosinophil# 0.16 X10^3/uL; Eosinophils% 2.6 % (0-5); Hematocrit 34.7 % (37-47); Hemoglobin 11.8 g/dL (12.0-15.0); Lymphocyte # 1.75 X10^3/ul (4.0); Lymphocyte % 28.1 % (19-41); Mean Corpuscular Hgb 32.3 pg (27.0-32.0); Mean Corpuscular Volume 95.1 fL (81-99); Monocyte# 0.47 X10^3/uL; Monocyte% 7.5 % (0-10); NRBC Flagged by Analyzer 0 % (0-5); Neutrophil # 3.82 X10^3/uL (2.7-7.7); Neutrophil % 61.3 % (47-70); Platelet Count 196 K/mm3 (150-450); RBC Distribution Width CV 12.1 % (11.6-14.6); RBC Distribution Width SD 42.2 fl (35.1-43.9); Red Blood Count 3.65 M/mm3 (4.2-5.4); White Blood Count 6.2 K/mm3 (4.4-11.0)
[2019-12-03 19:44] LABS: ALB/GLOB Ratio 1.2 RATIO (0.9-2.4); AST(SGOT) 13 U/L (15-37); Alanine Aminotransfer ALT/SGPT 18 U/L (13-56); Albumin, Serum 3.9 g/dL (3.2-5.0); Alkaline Phosphatase 51 U/L (45-117); Anion Gap 5 (5-15); BUN 13 mg/dL (7-18); BUN/Creat Ratio 13.9 RATIO (10-20); Chloride 107 mmol/L (98-107); Cholesterol 240 mg/dL (200); Creatinine, Serum 0.93 mg/dL (0.55-1.02); EST Glomerular Filtration Rate 61 mL/min (>60); Est Glom Filt Rate - Afr Amer 74 mL/min (>60); Globulin 3.3 g/dL (2.2-4.2); Glucose 131 mg/dL (74-106); High Density Lipoprotein 36 mg/dL; Potassium 3.9 mmol/L (3.5-5.1); Protein, Total 7.2 g/dL (6.4-8.2); Sodium Level 141 mmol/L (136-145); Triglycerides 317 mg/dL; Very Low Density Lipoprotein 63 mg/dL (5-40)
[2019-12-04 09:52] LABS: Hemoglobin A1c 5.4 % (3.8-5.6)
== END ==
PROVIDERS: PCP Internal Medicine; Referring Provider Internal Medicine; Visit Provider Internal Medicine
DX: I10 Essential (primary) hypertension (principal); N32.81 Overactive bladder; E78.5 Hyperlipidemia, unspecified; R73.9 Hyperglycemia, unspecified
CPT/HCPCS: 36415; 80053; 80061; 83036; 85025

== ENCOUNTER 2020-01-01 14:00 | Outpatient (RCR) | payer MEDICARE, OTHER, SELFPAY ==
[2019-12-03 14:41] VITALS: BMI 26.9
--- NOTE | 2019-12-25 15:12 | HP.PTEVAL ---
Patient's Visit Information SHAQ FARIAS is a 84 year old F referred to Physical Therapy by Dr. Ton Espino MD with a diagnosis of CERVICALALGIA. Date of Evaluation: 12/25/19 Physical Therapist: Yamil Jj, PT, Cert MDT, OCS - Visit Plan Frequency: 2x /Week Duration: 4 Weeks Plan: PT INTERVENTIONS CERVICAL ROM,POSTURAL EX'S,STRENGTHENING ,MANUAL THERAPY STM/CERVICAL TRACTION ,MODLATIES - Subjective This 84 y/o female presents to physical therapy with cervicalagia. Patient has had cervical pain with radicular symptoms in left arm for 8 years.Patient pain worse L side. Patient symptoms gardual incidous onset of pain. Seen Dr tigist PT. Aggraveting factors turning lo left ,lifting affects ADL's and housework tasks. Symptoms better with teylonal. Patientnt does h/o falling 2 years ago. Pateint has h/o bilateral RTC surgery. Patient has occassional parathesia/tingling left arm. Patient denies NAJERA/nausea/dizziness. Patient does have some balance issues. Patient able to sleep okay at night, Patient symptoms affects ADL's and housework tasks. Patient symptoms affects QOL. SOCIAL: . VOCATION: retired - Pain Left Neck Pain Intensity (Out of 10): 5 Pain Intensity Range: 10 - Objective POSTURE: mild foward posture rounded shoulders. NEURO: c/o parathesia/tingling left arm,reflexes C5-6-7 1/3. PALAPTION: tender UT/levator. MMT: 4/5 except deltoid 3+/5. CERVICAL ROM: flexion min loss,lateral flexion/rotation mod loss pain to left UT /shoulder extesnion mod loss - Special Tests C/S Radiculapathy - Left Upper limb tension test: Negative C/S Radiculapathy - Left Spurlings: Positive C/S Radiculapathy - Right Spurlings: Negative C/S Radiculapathy - Left Cervical distraction: Negative C/S Radiculapathy - Right Cervical distraction: Negative - Goals Goal 1:: Indepoendant with HEP Goal Time Frame: 4-6 Weeks Goal 2:: Improve posture for ADLS Goal Time Frame: 4-6 Weeks Goal 3:: Decrease cervical pain to left UE by 50% or > to improve function. Goal Time Frame: 4-6 Weeks Goal 4:: Patient to improve cervical ROM for function of recovery Goal Time Frame: 4-6 Weeks Goal 5:: Patient to improve neck owestry score by 5 points or > to improve QOL . Goal Time Frame: 4-6 Weeks - Rehabilitation Potential Physical Therapy Diagnosis: This patient has cervical pain with radicular symptoms to left shoulder worse with movement to left due to possibe lateral stenosis thus benifit from skilled PT Rehabilitation Potential: Good - Anticipated Interventions Patient/Client Instruction: Educate patient on: Condition, Plan of Care For the Purpose of:: To decrease pain, To increase ROM, To improve muscle performance and motor function, To improve ability to perform ADL's, To increase tolerance to activity/condition/position, To improve ability of physical actions for home/community/work/leisure, To improve health of tissue, To decrease soft tissue restriction, To increase flexibility/ROM, To reduce risk of recurrence, To improve ability to perform tasks related to life management Therapeutic Exercise to Include: Strength training, Flexibilty training, Active ROM For the Purpose of:: To decrease pain, To increase ROM, To improve muscle performance and motor function, To improve ability to perform ADL's, To increase tolerance to activity/condition/position, To improve ability of physical actions for home/community/work/leisure, To decrease soft tissue restriction, To increase flexibility/ROM, To assume or resume ADL's, To reduce risk of recurrence Manual Therapy Techniques to Include: Mobilization, Soft tissue mobilization Comment: TRACTION For the Purpose of:: To decrease pain, To increase ROM, To improve nutrient delivery to tissue, To increase oxygenation perfusion, To improve health of tissue, To decrease soft tissue restriction, To increase flexibility/ROM TENS: Yes IF ES: Yes Cryotherapy (ice pack, ice massage): Yes Thermo therapy (hot pack): Yes Ultrasound (thermal/non thermal): Yes Intermittent cervical traction: Yes - 12#-17# For the Purpose of:: To decrease pain, To increase ROM, To improve nutrient delivery to tissue, To increase oxygenation perfusion, To improve health of tissue, To decrease soft tissue restriction Thank you for the opportunity to evaluate your patient. For Medicare and Medicare HMO plans, please review the plan of care and approve it. It will need to be FAXED BACK to us at [phone] for Medicare purposes. For Medicare only, by signing this I certify the plan of care. Please let me know if there are questions or concerns regarding this plan of care. Physician Signature: Date:
--- NOTE | 2020-03-16 15:42 | HP.PT.NRP ---
SHAQ FARIAS was seen in my office for initial evaluation on 12/25/19. The following Plan of Care was established for this patient: Initial Frequency: 2x /Week Initial Duration: 4 Weeks Patient/Client Instruction: Educate patient on: Condition, Plan of Care For the Purpose of:: To decrease pain, To increase ROM, To improve muscle performance and motor function, To improve ability to perform ADL's, To increase tolerance to activity/condition/position, To improve ability of physical actions for home/community/work/leisure, To improve health of tissue, To decrease soft tissue restriction, To increase flexibility/ROM, To reduce risk of recurrence, To improve ability to perform tasks related to life management Therapeutic Exercise to Include: Strength training, Flexibilty training, Active ROM For the Purpose of:: To decrease pain, To increase ROM, To improve muscle performance and motor function, To improve ability to perform ADL's, To increase tolerance to activity/condition/position, To improve ability of physical actions for home/community/work/leisure, To decrease soft tissue restriction, To increase flexibility/ROM, To assume or resume ADL's, To reduce risk of recurrence Manual Therapy Techniques to Include: Mobilization, Soft tissue mobilization Comment: TRACTION For the Purpose of:: To decrease pain, To increase ROM, To improve nutrient delivery to tissue, To increase oxygenation perfusion, To improve health of tissue, To decrease soft tissue restriction, To increase flexibility/ROM TENS: Yes IF ES: Yes Cryotherapy (ice pack, ice massage): Yes Thermo therapy (hot pack): Yes Ultrasound (thermal/non thermal): Yes Intermittent cervical traction: Yes - 12#-17# For the Purpose of:: To decrease pain, To increase ROM, To improve nutrient delivery to tissue, To increase oxygenation perfusion, To improve health of tissue, To decrease soft tissue restriction This patient was last seen in our office . Pertinent comments regarding their Physical therapy will appear below: Patient was seen for cervicalalgia for US and manual therapy ,traction. But developed HTN seen Dr had MRI thus is d/c . At this point I will be discontinuing this patient from physical therapy. I would be happy to see this patient again in the future if found appropriate by the physician. Thank you! Yamil Jj, PT, Cert MDT, OCS
== END 2020-01-01 19:00 | disposition home or self-care (01) ==
LOC: PT 14:00
PROVIDERS: PCP Internal Medicine; Referring Provider Internal Medicine; Visit Provider Internal Medicine
DX: M54.2 Cervicalgia (principal)
CPT/HCPCS: 97012; 97035; 97140; 97162

== ENCOUNTER → 2020-01-28 16:09 | Outpatient (CLI) | payer MEDICARE, OTHER, SELFPAY ==
--- NOTE | 2020-01-28 16:10 | MRI_ITS ---
STUDY: MRI BRAIN WITHOUT CONTRAST REASON FOR EXAM: Female, 84 years old. HTN urgency TECHNIQUE: Standardized multiplanar fat and water weighted pulse sequences were obtained. COMPARISON: None. FINDINGS: Moderate atrophy and advanced periventricular white matter ischemic changes without mass effect or restricted diffusion.. Normal bilateral basal ganglia. Normal thalami. There is no extra-axial fluid accumulation. Normal flow voids within the major intracranial circulation suggesting patency by spin echo criteria. Empty sella deformity likely of no significance., infundibular stalk, optic chiasm and hypothalamus. Normal tectal plate and pineal gland. Normal midbrain, herbert and medulla. Chronic ischemic changes in left cerebellar hemisphere Normal basal cisterns. Normal bilateral temporal bones. Normal bilateral internal auditory canals. Postsurgical changes of the orbits.. There is minor mucosal thickening of left maxillary and bilateral ethmoid sinuses. Normal calvarium and skull base. Normal visualized soft tissue structures. Normal visualized upper cervical spine. MRI/Brain without Contrast IMPRESSION: Advanced periventricular white matter ischemic changes without evidence for acute infarct. Mild chronic ischemic changes of the left cerebellar hemisphere Electronically Signed: Jason Rodriguez MD at 20:39 EST , Service support ,
== END ==
PROVIDERS: PCP Internal Medicine; Referring Provider Internal Medicine; Visit Provider Internal Medicine
DX: I16.0 Hypertensive urgency (principal)
CPT/HCPCS: 70551

== ENCOUNTER 2020-03-19 11:00 | Outpatient (RCR) | payer MEDICARE, OTHER, SELFPAY | END 2020-03-19 23:59 | LOC: IMMUN 11:00 | PROVIDERS: PCP Internal Medicine; Visit Provider Family Medicine | DX: Z23 Encounter for immunization (principal) | CPT/HCPCS: 0011A; 0012A; 91301 ==

== ENCOUNTER → 2020-06-01 13:26 | Outpatient (CLI) | payer MEDICARE, OTHER, SELFPAY ==
[2020-06-01 12:48] VITALS: BMI 27.4
[2020-06-01 15:27] LABS: Anion Gap 7 (5-15); BUN 16 mg/dL (7-18); BUN/Creat Ratio 15.2 RATIO (10-20); Calcium,Total 8.9 mg/dL (8.5-10.1); Chloride 107 mmol/L (98-107); Creatinine, Serum 1.05 mg/dL (0.55-1.02); EST Glomerular Filtration Rate 53 mL/min (>60); Est Glom Filt Rate - Afr Amer 64 mL/min (>60); Glucose 188 mg/dL (74-106); Potassium 3.7 mmol/L (3.5-5.1); Sodium Level 140 mmol/L (136-145)
[2020-06-02 11:08] LABS: Hemoglobin A1c 5.4 % (3.8-5.6)
== END ==
PROVIDERS: PCP Internal Medicine; Visit Provider Internal Medicine
DX: I10 Essential (primary) hypertension (principal); R73.9 Hyperglycemia, unspecified
CPT/HCPCS: 36415; 80048; 83036

== ENCOUNTER → 2020-06-11 15:30 | Outpatient (CLI) | payer MEDICARE, OTHER, SELFPAY ==
--- NOTE | 2020-06-11 15:51 | RAD_ITS ---
INDICATION: Right Ankle Pain EXAMINATION/TECHNIQUE: X-RAY - RIGHT XR Ankle Min 3 Views COMPARISON: None. FINDINGS: No acute fracture or malalignment. No blastic or lytic lesions. No degenerative changes are seen. The soft tissues are unremarkable. Plantar heel spur. RAD/Ankle min 3 Views IMPRESSION: No acute radiographic abnormalities. Electronically Signed: Liu Rodriguez MD at 18:39 EDT Tel , Service support ,
[2020-06-11 17:01] LABS: Uric Acid 4.7 mg/dL (2.6-6.0)
== END ==
PROVIDERS: PCP Internal Medicine; Referring Provider Internal Medicine; Visit Provider Internal Medicine
DX: M25.571 Pain in right ankle and joints of right foot (principal); M10.9 Gout, unspecified
CPT/HCPCS: 36415; 73610; 84550

== ENCOUNTER → 2020-11-16 15:16 | Outpatient (CLI) | payer MEDICARE, OTHER, SELFPAY ==
[2020-11-16 16:31] LABS: Absolute Lymphocyte Count 1.12 X10^3/uL (0.83-4.51); Absolute Neutrophil Count 3.5 X10^3/uL (2.0-7.7); Basophil# 0.02 X10^3/uL; Basophil% 0.4 % (0-1); Eosinophil# 0.07 X10^3/uL; Eosinophils% 1.4 % (0-5); Hematocrit 35.9 % (37-47); Hemoglobin 12.3 g/dL (12.0-15.0); Lymphocyte # 1.12 X10^3/ul (0.83-4.51); Lymphocyte % 21.8 % (19-41); Mean Corp Hgb Conc 34.3 g/dL (32-36); Mean Corpuscular Volume 93.5 fL (81-99); Mean Platelet Vol. 9.9 fl (6.2-12.0); Monocyte# 0.44 X10^3/uL; Monocyte% 8.6 % (0-10); NRBC Flagged by Analyzer 0 % (0-5); Neutrophil # 3.47 X10^3/uL (2.7-7.7); Neutrophil % 67.6 % (47-70); Platelet Count 212 K/mm3 (150-450); RBC Distribution Width CV 14.2 % (11.6-14.6); RBC Distribution Width SD 47.9 fl (35.1-43.9); Red Blood Count 3.84 M/mm3 (4.2-5.4); White Blood Count 5.1 K/mm3 (4.4-11.0)
[2020-11-16 16:56] LABS: ALB/GLOB Ratio 0.8 RATIO (0.9-2.4); AST(SGOT) 15 U/L (15-37); Alanine Aminotransfer ALT/SGPT 28 U/L (13-56); Albumin, Serum 3.4 g/dL (3.2-5.0); Alkaline Phosphatase 79 U/L (45-117); Anion Gap 10 (5-15); BUN 10 mg/dL (7-18); BUN/Creat Ratio 12.1 RATIO (10-20); Calcium,Total 8.6 mg/dL (8.5-10.1); Chloride 105 mmol/L (98-107); Cholesterol 200 mg/dL (200); Creatinine, Serum 0.82 mg/dL (0.55-1.02); EST Glomerular Filtration Rate 70 mL/min (>60); Est Glom Filt Rate - Afr Amer 85 mL/min (>60); Glucose 133 mg/dL (74-106); High Density Lipoprotein 34 mg/dL; Potassium 3.9 mmol/L (3.5-5.1); Protein, Total 7.4 g/dL (6.4-8.2); Sodium Level 141 mmol/L (136-145); Triglycerides 271 mg/dL; Very Low Density Lipoprotein 54 mg/dL (5-40)
== END ==
PROVIDERS: PCP Internal Medicine; Visit Provider Internal Medicine
DX: E78.5 Hyperlipidemia, unspecified (principal); I10 Essential (primary) hypertension
CPT/HCPCS: 36415; 80053; 80061; 85025

== ENCOUNTER 2021-05-10 09:53 | Outpatient (CLI) | payer MEDICARE, OTHER, SELFPAY ==
[2021-05-10 12:08] LABS: Absolute Lymphocyte Count 1.12 X10^3/uL (0.83-4.51); Absolute Neutrophil Count 4.7 X10^3/uL (2.0-7.7); Basophil# 0.01 X10^3/uL; Basophil% 0.2 % (0-1); Eosinophil# 0.07 X10^3/uL; Eosinophils% 1.1 % (0-5); Hematocrit 38.1 % (37-47); Hemoglobin 12.9 g/dL (12.0-15.0); Lymphocyte # 1.12 X10^3/ul (0.83-4.51); Mean Corp Hgb Conc 33.9 g/dL (32-36); Mean Corpuscular Hgb 32.3 pg (27.0-32.0); Mean Corpuscular Volume 95.5 fL (81-99); Mean Platelet Vol. 10.1 fl (6.2-12.0); Monocyte# 0.63 X10^3/uL; Monocyte% 9.5 % (0-10); NRBC Flagged by Analyzer 0 % (0-5); Neutrophil # 4.73 X10^3/uL (2.7-7.7); Neutrophil % 71.6 % (47-70); Platelet Count 266 K/mm3 (150-450); RBC Distribution Width CV 13.1 % (11.6-14.6); RBC Distribution Width SD 44.9 fl (35.1-43.9); Red Blood Count 3.99 M/mm3 (4.2-5.4); White Blood Count 6.6 K/mm3 (4.4-11.0)
[2021-05-10 12:11] LABS: ALB/GLOB Ratio 1.2 RATIO (0.9-2.4); AST(SGOT) 12 U/L (15-37); Alanine Aminotransfer ALT/SGPT 14 U/L (13-56); Albumin, Serum 4.4 g/dL (3.2-5.0); Alkaline Phosphatase 80 U/L (45-117); Anion Gap 6 (5-15); BUN 24 mg/dL (7-18); BUN/Creat Ratio 24.1 RATIO (10-20); Chloride 104 mmol/L (98-107); Cholesterol 133 mg/dL (200); EST Glomerular Filtration Rate 57 mL/min (>60); Est Glom Filt Rate - Afr Amer 68 mL/min (>60); Globulin 3.6 g/dL (2.2-4.2); Glucose 129 mg/dL (74-106); High Density Lipoprotein 47 mg/dL; Potassium 4.2 mmol/L (3.5-5.1); Sodium Level 138 mmol/L (136-145); Triglycerides 44 mg/dL; Very Low Density Lipoprotein 9 mg/dL (5-40)
== END 2021-05-10 23:59 | disposition home or self-care (01) ==
LOC: BIMLAB 09:55
PROVIDERS: PCP Internal Medicine; Referring Provider Internal Medicine; Visit Provider Internal Medicine
DX: I10 Essential (primary) hypertension (principal); E78.5 Hyperlipidemia, unspecified
CPT/HCPCS: 36415; 80053; 80061; 85025

== ENCOUNTER 2021-05-19 11:07 | Outpatient (CLI) | payer MEDICARE, OTHER, SELFPAY ==
--- NOTE | 2021-05-19 11:24 | BD_ITS ---
STUDY: DUAL ENERGY X-RAY ABSORPTIOMETRY / DXA REASON FOR EXAM: Female, 85 years old. Post menopausal TECHNIQUE: Bone Mineral Density (BMD) measurements of lumbar spine and bilateral hips were obtained. COMPARISON: Comparison is made with prior study dated 11/04/2014. FINDINGS: Lumbar Spine (L1-L4): g/cm2 (0.848) / T-score (-1.7) / Z-score (1.1) Findings are suggestive of osteopenia with a moderate fracture risk. Left Femur Total: g/cm2 (0.766) / T-score (-1.4) / Z-score (0.8) Left Femoral Neck: g/cm2 (0.639) / T-score (-1.9) / Z-score (0.6) Right Femur Total: g/cm2 (0.759) / T-score (-1.5) / Z-score (0.8) Right Femoral Neck: g/cm2 (0.642) / T-score (-1.9) / Z-score (0.6) The T-Scores on the most recent prior examination were: Lumbar Spine (L1-L4): There has been worsening of bone density since the previous examination. Left Femur Total: which represents a worsening of 15.9%. Right Femur Total: which represents a worsening of 9.6%. BD/Dexa Bone Density Study IMPRESSION: The patient is considered osteopenic as outlined below according to World Rainer Organization (WHO) criteria with a moderate fracture risk. There has been worsening of bone density since the previous examination. Reference Information: The T-score is the number of standard deviations above or below the standard which is normal for young adults at their peak bone mineral density. The World Health Organization (WHO) interprets the T-scores as follows: Above -1 Normal bone density Between -1 and -2.5 Osteopenia Equal to / or below -2.5 Osteoporosis As a practical clinical guideline, osteopenia may be graded as follows: Mild -1 through -1.5 Moderate -1.6 through -2.0 Severe -2.1 through -2.4 The Z-score is the number of standard deviations above or below age-matched controls. A Z-score of less than -1.5 would be considered abnormal. References: 1. NIH Osteoporosis and Related Bone Diseases www osteo.org 2. International Society for Clinical Densitometry www iscd.org 3. National Osteoporosis Foundation www nof.org Electronically Signed: Ancelmo Higgins MD at 10:47 EDT ,
== END 2021-05-19 23:59 | disposition home or self-care (01) ==
PROVIDERS: PCP Internal Medicine; Referring Provider Internal Medicine; Visit Provider Internal Medicine
DX: Z78.0 Asymptomatic menopausal state (principal)
CPT/HCPCS: 77080

== ENCOUNTER → 2021-06-14 | Outpatient (CLI) | payer MEDICARE, OTHER, SELFPAY ==
[2021-06-14 15:37] LABS: Anion Gap 7 (5-15); BUN 25 mg/dL (7-18); BUN/Creat Ratio 22.5 RATIO (10-20); Calcium,Total 9.2 mg/dL (8.5-10.1); Chloride 106 mmol/L (98-107); Creatinine, Serum 1.11 mg/dL (0.55-1.02); EST Glomerular Filtration Rate 50 mL/min (>60); Est Glom Filt Rate - Afr Amer 60 mL/min (>60); Glucose 124 mg/dL (74-106); Potassium 4.4 mmol/L (3.5-5.1); Sodium Level 138 mmol/L (136-145)
== END | disposition home or self-care (01) ==
LOC: BIMLAB 14:02
PROVIDERS: PCP Internal Medicine; Referring Provider Internal Medicine; Visit Provider Internal Medicine
DX: I10 Essential (primary) hypertension (principal)
CPT/HCPCS: 36415; 80048

== ENCOUNTER → 2021-08-30 | Outpatient (CLI) | payer MEDICARE, OTHER, SELFPAY ==
[2021-08-30 15:25] LABS: Anion Gap 9 (5-15); BUN 15 mg/dL (7-18); BUN/Creat Ratio 14.3 RATIO (10-20); Chloride 105 mmol/L (98-107); Creatinine, Serum 1.05 mg/dL (0.55-1.02); EST Glomerular Filtration Rate 53 mL/min (>60); Est Glom Filt Rate - Afr Amer 64 mL/min (>60); Glucose 109 mg/dL (74-106); Potassium 4.5 mmol/L (3.5-5.1); Sodium Level 140 mmol/L (136-145)
== END | disposition home or self-care (01) ==
LOC: BIMLAB 13:51
PROVIDERS: PCP Internal Medicine; Referring Provider Internal Medicine; Visit Provider Internal Medicine
DX: I10 Essential (primary) hypertension (principal)
CPT/HCPCS: 36415; 80048

== ENCOUNTER → 2022-02-04 | Outpatient (CLI) | payer MEDICARE, OTHER, SELFPAY ==
[2022-02-04 16:36] LABS: Absolute Lymphocyte Count 1.42 X10^3/uL (0.83-4.51); Basophil# 0.01 X10^3/uL; Basophil% 0.2 % (0-1); Eosinophils% 1.9 % (0-5); Hematocrit 34.5 % (37-47); Hemoglobin 11.4 g/dL (12.0-15.0); Lymphocyte # 1.42 X10^3/ul (0.83-4.51); Lymphocyte % 27.5 % (19-41); Mean Corpuscular Hgb 32.4 pg (27.0-32.0); Mean Platelet Vol. 9.8 fl (6.2-12.0); Monocyte# 0.58 X10^3/uL; Monocyte% 11.2 % (0-10); NRBC Flagged by Analyzer 0 % (0-5); Neutrophil # 3.03 X10^3/uL (2.7-7.7); Neutrophil % 58.8 % (47-70); Platelet Count 221 K/mm3 (150-450); RBC Distribution Width CV 12.5 % (11.6-14.6); RBC Distribution Width SD 44.7 fl (35.1-43.9); Red Blood Count 3.52 M/mm3 (4.2-5.4); White Blood Count 5.2 K/mm3 (4.4-11.0)
[2022-02-04 16:58] LABS: ALB/GLOB Ratio 1.3 RATIO (0.9-2.4); AST(SGOT) 11 U/L (15-37); Alanine Aminotransfer ALT/SGPT 14 U/L (13-56); Albumin, Serum 4.3 g/dL (3.2-5.0); Alkaline Phosphatase 58 U/L (45-117); Anion Gap 7 (5-15); BUN 18 mg/dL (7-18); BUN/Creat Ratio 17.5 RATIO (10-20); Calcium,Total 9.1 mg/dL (8.5-10.1); Chloride 108 mmol/L (98-107); Creatinine, Serum 1.03 mg/dL (0.55-1.02); EST Glomerular Filtration Rate 54 mL/min (>60); Est Glom Filt Rate - Afr Amer 66 mL/min (>60); Globulin 3.2 g/dL (2.2-4.2); Glucose 149 mg/dL (74-106); Potassium 4.1 mmol/L (3.5-5.1); Protein, Total 7.5 g/dL (6.4-8.2); Sodium Level 141 mmol/L (136-145)
== END | disposition home or self-care (01) ==
LOC: BIMLAB 15:23
PROVIDERS: PCP Internal Medicine; Referring Provider Internal Medicine; Visit Provider Internal Medicine
DX: Z01.818 Encounter for other preprocedural examination (principal); I10 Essential (primary) hypertension
CPT/HCPCS: 36415; 80053; 85025

== ENCOUNTER → 2022-02-09 | Outpatient (CLI) | payer MEDICARE, OTHER, SELFPAY ==
--- NOTE | 2022-02-09 15:40 | EKG12_ITS ---
Test Reason : PREOP Blood Pressure : / mmHG Vent. Rate : 071 BPM Atrial Rate : 071 BPM P-R Int : 146 ms QRS Dur : 064 ms QT Int : 392 ms P-R-T Axes : -20 091 003 degrees QTc Int : 425 ms Normal sinus rhythm Nonspecific ST abnormality Poor R wave progression Abnormal ECG Confirmed by ADILIA PEOPLES, JENNI ([id number]), editorial specialist JAJA LOBO ([id number]) on 02/10/2022 10:38:20 AM Referred By: Ton Espino Confirmed By:JENNI PAT MD
== END | disposition home or self-care (01) ==
LOC: PSN 15:39
PROVIDERS: PCP Internal Medicine; Referring Provider Internal Medicine; Visit Provider Internal Medicine
DX: Z01.818 Encounter for other preprocedural examination (principal); I10 Essential (primary) hypertension
CPT/HCPCS: 93005

== ENCOUNTER → 2022-02-23 | Outpatient (CLI) | payer MEDICARE, OTHER, SELFPAY ==
--- NOTE | 2022-02-23 14:00 | RAD_ITS ---
STUDY: X-RAY CHEST REASON FOR EXAM: Female, 86 years old. Chest congestion and Wheezing TECHNIQUE: XR Chest 2 Views COMPARISON: 07/09/2017 FINDINGS: There is atherosclerotic calcification of the aortic arch with tortuosity. There are diffuse degenerative changes of the visualized thoracic spine. There is degenerative osteoarthritis of the bilateral shoulders. There is a hiatal hernia. Elevated right humeral head with eburnation of the acromion suggest a chronic rotator cuff tear. Normal size heart. Normal mediastinum and alejandro. Normal visualized pulmonary arteries. There is no demonstrated abnormality of the visualized soft tissue structures of the upper abdomen. RAD/Chest PA and Lateral IMPRESSION: There are no acute findings. Elevated right humeral head with eburnation of the acromion suggest a chronic rotator cuff tear. Electronically Signed: Flavio Jackson MD at 14:41 EST ,
== END | disposition home or self-care (01) ==
LOC: RAD 13:52
PROVIDERS: PCP Internal Medicine; Referring Provider Internal Medicine; Visit Provider Internal Medicine
DX: K44.9 Diaphragmatic hernia without obstruction or gangrene (principal); M19.012 Primary osteoarthritis, left shoulder; M19.011 Primary osteoarthritis, right shoulder; R09.89 Other specified symptoms and signs involving the circulatory and respiratory systems; R05.9 Cough, unspecified
CPT/HCPCS: 71046

== ENCOUNTER → 2022-04-25 | Outpatient (CLI) | payer MEDICARE, OTHER, SELFPAY ==
[2022-04-25 16:54] LABS: Absolute Lymphocyte Count 1.24 X10^3/uL (0.83-4.51); Absolute Neutrophil Count 3.2 X10^3/uL (2.0-7.7); Basophil# 0.02 X10^3/uL; Basophil% 0.4 % (0-1); Eosinophil# 0.17 X10^3/uL; Eosinophils% 3.3 % (0-5); Hematocrit 35.6 % (37-47); Hemoglobin 11.7 g/dL (12.0-15.0); Lymphocyte # 1.24 X10^3/ul (0.83-4.51); Lymphocyte % 23.9 % (19-41); Mean Corp Hgb Conc 32.9 g/dL (32-36); Mean Corpuscular Hgb 31.5 pg (27.0-32.0); Mean Corpuscular Volume 95.7 fL (81-99); Mean Platelet Vol. 9.4 fl (6.2-12.0); Monocyte# 0.52 X10^3/uL; NRBC Flagged by Analyzer 0 % (0-5); Neutrophil % 61.8 % (47-70); Platelet Count 281 K/mm3 (150-450); RBC Distribution Width SD 45.1 fl (35.1-43.9); Red Blood Count 3.72 M/mm3 (4.2-5.4); White Blood Count 5.2 K/mm3 (4.4-11.0)
[2022-04-25 16:58] LABS: ALB/GLOB Ratio 1.1 RATIO (0.9-2.4); AST(SGOT) 10 U/L (15-37); Alanine Aminotransfer ALT/SGPT 11 U/L (13-56); Alkaline Phosphatase 66 U/L (45-117); Anion Gap 9 (5-15); BUN 21 mg/dL (7-18); BUN/Creat Ratio 18.4 RATIO (10-20); Chloride 108 mmol/L (98-107); Creatinine, Serum 1.14 mg/dL (0.55-1.02); EST Glomerular Filtration Rate 48 mL/min (>60); Est Glom Filt Rate - Afr Amer 58 mL/min (>60); Globulin 3.6 g/dL (2.2-4.2); Glucose 137 mg/dL (74-106); Potassium 4.3 mmol/L (3.5-5.1); Protein, Total 7.6 g/dL (6.4-8.2); Sodium Level 142 mmol/L (136-145)
== END | disposition home or self-care (01) ==
LOC: BIMLAB 14:49
PROVIDERS: PCP Internal Medicine; Referring Provider Internal Medicine; Visit Provider Internal Medicine
DX: I10 Essential (primary) hypertension (principal)
CPT/HCPCS: 36415; 80053; 85025

== ENCOUNTER 2022-12-14 14:00 | Outpatient (RCR) | payer MEDICARE, OTHER, SELFPAY ==
--- NOTE | 2022-12-07 15:45 | HP.PTEVAL_ITS ---
Patient's Visit Information Visit Information Visit Information: SHAQ FARIAS is a 87 year old F referred to Physical Therapy by Dr. Ton Espino MD with a diagnosis of abnormalities of gait. Date of Evaluation: 12/07/22 Physical Therapist: Clark Siddiqui, DPT, OCS, CSCS Visit Plan Frequency: 2x /Week Duration: 4-6 Weeks Plan: 2x/week x4 weeks for 1. weight shifting exercises 2. vestibular balance challenges 3. home based strengtheing program. Get to i and safety with all. Subjective Subjective: Has not fallen but afraid that she will. Is waiting for a second when she stands up. Feels unsteady. No neuropathy. No spinning. Sometimes when I get up , if I don't wait then I am unsteady. Feels like she is unsteady for 3 seconds upon standing. feels like she can walk Ok but needs to be careful. Sleeping well, no pain. Has felt unsteady for a few months Not employed. Spends day taking dog out to yard. Tires out easily and feels unsteady in the yard. Does laundry and cooks. Dog is her hobby. Watching TV gameshows.. No regular exercises, does some AP. Objective Objective: Walks i into PT adn out easily but tires. Trasnfers chair and bed I. Steps with one rail I, some weakness evident descending. Pt avoids FW weight shift with walking giving her short steps and descending steps keeps weight BW. AROM LE WFL. reflexes 2/3 patella and aachilles sensation LE WNL to gross light touch. strength hips 3+, knees 4- and ankles 4/5. coordination to reciprocal toe tap and heel tap and heel to keller is good. Balance/Special Test Scores Functional Gait Assessment Score: 23 % Disability: 23.3400 CATSIB Score (Max score 120 seconds): 92 Dizziness Score: 50 Goals Goal 1:: I appropriate HEP for weight shift, vestibular challenges and strengtheneing via HEP. Goal Time Frame: 4-6 Weeks Goal 2:: FGA 25/30 to reduce fallrisk Goal Time Frame: 4-6 Weeks Goal 3:: foam stance ec 30 seconds without LOB Goal Time Frame: 4-6 Weeks Goal 4:: Pt feel balance 75% better. Goal Time Frame: 4-6 Weeks Rehabilitation Potential Physical Therapy Diagnosis: imbalance due to vestibular weakness, poor weight shift and weakness effecting activity. Rehabilitation Potential: Fair Anticipated Interventions Patient/Client Instruction: Educate patient on: Condition and Plan of Care For the Purpose of:: To improve nutrient delivery to tissue, To improve muscle performance and motor function, To increase tolerance to activity/condition/position, To improve ability of physical actions for home/community/work/leisure and To improve gait and locomotor functions Therapeutic Exercise to Include: Strength training and Balance training For the Purpose of:: To increase ROM, To improve nutrient delivery to tissue, To improve muscle performance and motor function, To increase tolerance to activity/condition/position and To improve ability of physical actions for home/community/work/leisure Text: Thank you for the opportunity to evaluate your patient. For Medicare and Medicare HMO plans, please review the plan of care and approve it. It will need to be FAXED BACK to us at [phone] for Medicare purposes. For Medicare only, by signing this I certify the plan of care. Please let me know if there are questions or concerns regarding this plan of care. Physician Signatu re: Date:
--- NOTE | 2023-01-24 13:38 | HP.PT.NRP ---
Patient Information Patient Information: SHAQ FARIAS was seen in my office for initial evaluation on 12/07/22. The following Plan of Care was established for this patient: POC Established Initial Frequency: 2x /Week Initial Duration: 4-6 Weeks Anticipated Interventions Patient/Client Instruction: Educate patient on: Condition and Plan of Care For the Purpose of:: To improve nutrient delivery to tissue, To improve muscle performance and motor function, To increase tolerance to activity/condition/position, To improve ability of physical actions for home/community/work/leisure and To improve gait and locomotor functions Therapeutic Exercise to Include: Strength training and Balance training For the Purpose of:: To increase ROM, To improve nutrient delivery to tissue, To improve muscle performance and motor function, To increase tolerance to activity/condition/position and To improve ability of physical actions for home/community/work/leisure Last Seen Last Seen: This patient was last seen in our office 12/14/22. Pertinent comments regarding their Physical therapy will appear below: Pt seen 3 visits of POC and then did not return for any further visits. At this point, it has been almost 6 weeks since attendance and I will discontinue due to nonattendance. At this point I will be discontinuing this patient from physical therapy. I would be happy to see this patient again in the future if found appropriate by the physician. Thank you! Clark Siddiqui, DPT, OCS, CSCS Balance/Gait/Functional tests Balance/Special Test Scores Functional Gait Assessment Score: 23 % Disability: 23.3400 CATSIB Score (Max score 120 seconds): 92 Dizziness Score: 50
== END 2022-12-14 19:00 | disposition home or self-care (01) ==
LOC: PT 14:00
PROVIDERS: PCP Internal Medicine; Referring Provider Internal Medicine; Visit Provider Internal Medicine
DX: R26.89 Other abnormalities of gait and mobility (principal)
CPT/HCPCS: 97110; 97161

== ENCOUNTER → 2023-02-27 | Outpatient (CLI) | payer MEDICARE, OTHER, SELFPAY ==
[2023-02-27 15:38] LABS: Absolute Lymphocyte Count 1.12 X10^3/uL (0.83-4.51); Basophil# 0.04 X10^3/uL; Basophil% 0.4 % (0-1); Eosinophil# 0.12 X10^3/uL; Eosinophils% 1.3 % (0-5); Hemoglobin 11.6 g/dL (12.0-15.0); Lymphocyte # 1.12 X10^3/ul (0.83-4.51); Lymphocyte % 12.4 % (19-41); Mean Corp Hgb Conc 33.1 g/dL (32-36); Mean Corpuscular Hgb 31.1 pg (27.0-32.0); Mean Corpuscular Volume 93.8 fL (81-99); Mean Platelet Vol. 9.9 fl (6.2-12.0); Monocyte% 7.8 % (0-10); NRBC Flagged by Analyzer 0 % (0-5); Neutrophil # 7.02 X10^3/uL (2.7-7.7); Neutrophil % 77.8 % (47-70); Platelet Count 256 K/mm3 (150-450); RBC Distribution Width CV 13.2 % (11.6-14.6); RBC Distribution Width SD 45.1 fl (35.1-43.9); Red Blood Count 3.73 M/mm3 (4.2-5.4)
[2023-02-27 16:15] LABS: ALB/GLOB Ratio 1.1 RATIO (0.9-2.4); AST(SGOT) 8 U/L (15-37); Alanine Aminotransfer ALT/SGPT 10 U/L (13-56); Albumin, Serum 3.9 g/dL (3.2-5.0); Alkaline Phosphatase 79 U/L (45-117); Anion Gap 5 (5-15); BUN 13 mg/dL (7-18); BUN/Creat Ratio 15.9 RATIO (10-20); Calcium,Total 9.2 mg/dL (8.5-10.1); Chloride 108 mmol/L (98-107); Cholesterol 139 mg/dL (200); Creatinine, Serum 0.82 mg/dL (0.55-1.02); EST Glomerular Filtration Rate 70 mL/min (>60); Est Glom Filt Rate - Afr Amer 85 mL/min (>60); Globulin 3.7 g/dL (2.2-4.2); Glucose 162 mg/dL (74-106); High Density Lipoprotein 42 mg/dL; Potassium 3.1 mmol/L (3.5-5.1); Protein, Total 7.6 g/dL (6.4-8.2); Sodium Level 141 mmol/L (136-145); Triglycerides 67 mg/dL; Very Low Density Lipoprotein 13 mg/dL (5-40)
[2023-02-28 14:46] LABS: Hemoglobin A1c 5.5 % (3.8-5.6)
== END | disposition home or self-care (01) ==
LOC: BIMLAB 14:24
PROVIDERS: PCP Internal Medicine; Referring Provider Internal Medicine; Visit Provider Internal Medicine
DX: E78.5 Hyperlipidemia, unspecified (principal); I10 Essential (primary) hypertension; R73.9 Hyperglycemia, unspecified
CPT/HCPCS: 36415; 80053; 80061; 83036; 85025

== ENCOUNTER → 2023-06-14 | Outpatient (CLI) | payer MEDICARE, OTHER, SELFPAY ==
[2023-06-14 17:28] LABS: Absolute Lymphocyte Count 1.17 X10^3/uL (0.83-4.51); Absolute Neutrophil Count 2.7 X10^3/uL (2.0-7.7); Basophil# 0.02 X10^3/uL; Basophil% 0.4 % (0-1); Eosinophil# 0.15 X10^3/uL; Eosinophils% 3.2 % (0-5); Hematocrit 33.2 % (37-47); Hemoglobin 11.3 g/dL (12.0-15.0); Lymphocyte # 1.17 X10^3/ul (0.83-4.51); Lymphocyte % 24.8 % (19-41); Mean Corpuscular Hgb 32.3 pg (27.0-32.0); Mean Corpuscular Volume 94.9 fL (81-99); Mean Platelet Vol. 9.7 fl (6.2-12.0); Monocyte# 0.61 X10^3/uL; NRBC Flagged by Analyzer 0 % (0-5); Neutrophil # 2.74 X10^3/uL (2.7-7.7); Neutrophil % 58.2 % (47-70); Platelet Count 233 K/mm3 (150-450); RBC Distribution Width CV 13.3 % (11.6-14.6); RBC Distribution Width SD 46.3 fl (35.1-43.9); White Blood Count 4.7 K/mm3 (4.4-11.0)
[2023-06-14 18:04] LABS: AST(SGOT) 9 U/L (15-37); Alanine Aminotransfer ALT/SGPT 10 U/L (13-56); Albumin, Serum 3.7 g/dL (3.2-5.0); Alkaline Phosphatase 75 U/L (45-117); Anion Gap 6 (5-15); BUN 18 mg/dL (7-18); BUN/Creat Ratio 17.1 RATIO (10-20); Calcium,Total 8.4 mg/dL (8.5-10.1); Chloride 111 mmol/L (98-107); Creatinine, Serum 1.05 mg/dL (0.55-1.02); EST Glomerular Filtration Rate 53 mL/min (>60); Est Glom Filt Rate - Afr Amer 64 mL/min (>60); Globulin 3.8 g/dL (2.2-4.2); Glucose 125 mg/dL (74-106); Potassium 4.3 mmol/L (3.5-5.1); Protein, Total 7.5 g/dL (6.4-8.2); Sodium Level 140 mmol/L (136-145); T4 Free Direct 0.93 ng/dL (0.76-1.46); Thyroid Stim Hormone (TSH) 2.38 uIU/mL (0.358-3.74)
[2023-06-15 12:30] LABS: Magnesium 2.1 mg/dL (1.6-2.6)
== END | disposition home or self-care (01) ==
LOC: BIMLAB 16:06
PROVIDERS: PCP Internal Medicine; Visit Provider Internal Medicine
DX: R00.1 Bradycardia, unspecified (principal); R94.31 Abnormal electrocardiogram [ECG] [EKG]; I10 Essential (primary) hypertension
CPT/HCPCS: 36415; 80053; 83735; 84439; 84443; 85025

== ENCOUNTER → 2023-07-28 | Outpatient (CLI) | payer MEDICARE, OTHER, SELFPAY ==
--- NOTE | 2023-07-28 07:26 | ECHOD_ITS ---
Reason For Study: Abn EKG Procedure This was a 2D Doppler, Color Flow transthoracic echocardiogram. Exam performed in department. Left Ventricle Normal LV size. Left ventricular systolic function is normal. The estimated ejection fraction is 55 %. No regional wall motion abnormalities noted. Right Ventricle Normal RV size. Normal systolic function. Atria Normal left atrium. Normal right atrium. Mitral Valve There is mild to moderate mitral annular calcification. Mild (1+) eccentric mitral valve insufficiency. Tricuspid Valve Normal tricuspid valve. Aortic Valve Trisinus/trileaflet aortic valve. Mild focal aortic valve calcification. Pulmonic Valve Normal pulmonic valve. Great Vessels Normal aortic root. The pulmonary artery is normal size. Normal inferior vena cava. Pericardium/Pleural No pericardial effusion. MMode/2D Measurements & Calculations LVIDd: 4.2 cm IVSd: 1.2 cm Ao root diam: 3.4 cm LVIDs: 2.5 cm LVPWd: 1.1 cm RVDd: 3.4 cm FS: 41.2 % LAV(MOD-bp): 57.3 ml LVAd ap4: 18.7 cm2 SV(MOD-sp4): 29.0 ml LAV(MOD-bp) Indexed: 32.7 ml/m2 LVLd ap4: 6.3 cm LAV(MOD-sp2): 50.4 ml EDV(MOD-sp4): 45.2 ml LAV(MOD-sp4): 63.3 ml EDV(sp4-el): 46.7 ml LVAs ap4: 9.9 cm2 LVLs ap4: 4.9 cm ESV(MOD-sp4): 16.2 ml ESV(sp4-el): 16.9 ml EF(MOD-sp4): 64.2 % EF(sp4-el): 63.8 % SV(sp4-el): 29.8 ml LA A4 area: 20.3 cm2 RA A4 area: 13.4 cm2 TAPSE: 2.8 cm Time Measurements MV dec time: 0.17 sec Doppler Measurements & Calculations MV E max ulises: 97.5 cm/sec Lat Peak E' Ulises: 4.8 cm/sec Med Peak E' Ulises: 6.5 cm/sec MV A max ulises: 106.5 cm/sec E/E' lat: 20.3 E/E' med: 15.0 MV E/A: 0.92 MV dec slope: 592.7 cm/sec2 Ao V2 max: 166.5 cm/sec LV V1 max: 111.1 cm/sec Ao max P.1 mmHg LV V1 max P.9 mmHg Ao V2 mean: 112.4 cm/sec LV V1 mean P.6 mmHg Ao mean P.7 mmHg LV V1 mean: 92.6 cm/sec Ao V2 VTI: 33.8 cm LV V1 VTI: 31.0 cm AV (velocity ratio): 0.92 PA V2 max: 152.3 cm/sec TR max ulises: 378.9 cm/sec PA max PG (full): 5.2 mmHg TR max P.4 mmHg PA V2 mean: 102.5 cm/sec ECHO/Echo Complete Interpretation Summary Normal LV size. Left ventricular systolic function is normal. The estimated ejection fraction is 55 %. There is mild to moderate mitral annular calcification. Mild (1+) eccentric mitral valve insufficiency. Ordering Physician: Ton Espino Referring Physician: Ton Espino Performed By: Lo Gomez RVT, RDCS and Student
--- NOTE | 2023-07-28 12:42 | STRESSREP ---
Stress Test Report Pharmacologic myocardial perfusion stress test. 88-year-old lady with a history of abnormal EKG Resting EKG demonstrates sinus bradycardia with a rate of 54 bpm. Resting blood pressure is 118/72 mmHg. 0.4 mg of regadenoson was infused per usual protocol followed by rapid intravenous saline flush injection. Continuous EKG monitoring was performed. The maximum heart rate was 93 bpm which was 69 of max impacted heart rate the maximum workload was 1 metabolic equivalent. At rest there were no ST or T wave changes noted to suggest ischemia and at peak infusion nonspecific ST changes were noted which did not meet the criteria for ischemia. No clinical angina is noted. The final blood pressure was 112/70 mmHg. Myocardial perfusion protocol. 11.3 mCi of technetium 99m sestamibi was injected at rest. 0.4 mg of regadenoson was infused per usual protocol. At peak infusion 32.9 mCi of technetium 99m sestamibi was injected stress images were obtained stress and rest images were reconstructed and compared in the short axis vertical long and horizontal long axis. Perfusion SPECT analysis: Review of the stress images demonstrate normal uptake of tracer noted in all areas of the myocardium. The resting images similar demonstrated normal uptake of tracer noted in all areas of the myocardium. No areas of reversibility are noted to suggest ischemia and no previous infarct is noted. Conclusion: Normal pharmacologic myocardial perfusion stress test.
== END | disposition home or self-care (01) ==
LOC: CVS 07:23
PROVIDERS: PCP Internal Medicine; Referring Provider Internal Medicine; Visit Provider Internal Medicine
DX: R94.31 Abnormal electrocardiogram [ECG] [EKG] (principal); R00.1 Bradycardia, unspecified
CPT/HCPCS: 78452; 93017; 93306; A9500; A4216; J2785

== ENCOUNTER → 2023-10-18 | Outpatient (CLI) | payer MEDICARE, OTHER, SELFPAY ==
[2023-10-18 16:48] LABS: Absolute Lymphocyte Count 1.33 X10^3/uL (0.83-4.51); Absolute Neutrophil Count 3.5 X10^3/uL (2.0-7.7); Basophil# 0.02 X10^3/uL; Basophil% 0.4 % (0-1); Eosinophil# 0.18 X10^3/uL; Eosinophils% 3.2 % (0-5); Hematocrit 33.3 % (37-47); Hemoglobin 11.2 g/dL (12.0-15.0); Lymphocyte # 1.33 X10^3/ul (0.83-4.51); Lymphocyte % 23.9 % (19-41); Mean Corp Hgb Conc 33.6 g/dL (32-36); Mean Corpuscular Hgb 31.8 pg (27.0-32.0); Mean Corpuscular Volume 94.6 fL (81-99); Mean Platelet Vol. 10.3 fl (6.2-12.0); Monocyte# 0.55 X10^3/uL; Monocyte% 9.9 % (0-10); NRBC Flagged by Analyzer 0 % (0-5); Neutrophil # 3.47 X10^3/uL (2.7-7.7); Neutrophil % 62.2 % (47-70); Platelet Count 223 K/mm3 (150-450); RBC Distribution Width CV 13.1 % (11.6-14.6); RBC Distribution Width SD 44.3 fl (35.1-43.9); Red Blood Count 3.52 M/mm3 (4.2-5.4); White Blood Count 5.6 K/mm3 (4.4-11.0)
[2023-10-18 17:27] LABS: Anion Gap 7 (5-15); BUN 14 mg/dL (7-18); BUN/Creat Ratio 14.7 RATIO (10-20); Calcium,Total 9.1 mg/dL (8.5-10.1); Chloride 111 mmol/L (98-107); Creatinine, Serum 0.95 mg/dL (0.55-1.02); EST Glomerular Filtration Rate 59 mL/min (>60); Est Glom Filt Rate - Afr Amer 72 mL/min (>60); Glucose 127 mg/dL (74-106); Potassium 4.4 mmol/L (3.5-5.1); Sodium Level 141 mmol/L (136-145)
== END | disposition home or self-care (01) ==
LOC: BIMLAB 15:03
PROVIDERS: PCP Internal Medicine; Referring Provider Internal Medicine; Visit Provider Internal Medicine
DX: N32.81 Overactive bladder (principal); M85.80 Other specified disorders of bone density and structure, unspecified site; I10 Essential (primary) hypertension
CPT/HCPCS: 36415; 80048; 82306; 85025

== ENCOUNTER → 2023-11-13 | Outpatient (CLI) | payer MEDICARE, OTHER, SELFPAY ==
--- NOTE | 2023-11-13 16:10 | RAD_ITS ---
EXAM: XR LUMBOSACRAL SPINE, 2 OR 3 VIEWS CLINICAL INDICATION: Other intervertebral disc degeneration, lumbosacral region TECHNIQUE: Frontal and lateral views of the lumbar spine and sacrum. COMPARISON: No relevant prior studies available. FINDINGS: VERTEBRAE: There is mild anterior spondylolisthesis of L4 on L5. There is no change in alignment with. Preserved vertebral body height. No fracture. Preservation of the normal lumbar lordosis. No significant facet arthropathy. DISC SPACES: There is disc space narrowing at L2-3 and L4-5. GASTROINTESTINAL TRACT: Unremarkable as visualized. Included bowel gas pattern is non-obstructive. RAD/L/S Spine w Bend Min 6 Vw IMPRESSION: Degenerative changes with disc space narrowing. There is anterior spondylolisthesis of L4 on L5. There are no acute osseous abnormalities. Electronically Signed: Von Saavedra MD at 0:14 EDT ,
== END | disposition home or self-care (01) ==
PROVIDERS: PCP Internal Medicine; Referring Provider Anesthesiology Pain Medicine; Visit Provider Anesthesiology Pain Medicine
DX: M51.37 Other intervertebral disc degeneration, lumbosacral region (principal)
CPT/HCPCS: 72114

== ENCOUNTER → 2024-01-22 | Outpatient (CLI) | payer MEDICARE, OTHER, SELFPAY ==
[2024-01-22 16:33] LABS: Absolute Lymphocyte Count 1.12 X10^3/uL (0.83-4.51); Absolute Neutrophil Count 3.6 X10^3/uL (2.0-7.7); Basophil# 0.01 X10^3/uL; Basophil% 0.2 % (0-1); Eosinophil# 0.17 X10^3/uL; Eosinophils% 3.1 % (0-5); Hematocrit 33.2 % (37-47); Lymphocyte # 1.12 X10^3/ul (0.83-4.51); Lymphocyte % 20.4 % (19-41); Mean Corp Hgb Conc 33.1 g/dL (32-36); Mean Corpuscular Hgb 31.9 pg (27.0-32.0); Mean Corpuscular Volume 96.2 fL (81-99); Mean Platelet Vol. 9.8 fl (6.2-12.0); Monocyte# 0.57 X10^3/uL; Monocyte% 10.4 % (0-10); NRBC Flagged by Analyzer 0 % (0-5); Neutrophil % 65.7 % (47-70); Platelet Count 218 K/mm3 (150-450); RBC Distribution Width CV 13.2 % (11.6-14.6); RBC Distribution Width SD 46.3 fl (35.1-43.9); Red Blood Count 3.45 M/mm3 (4.2-5.4); White Blood Count 5.5 K/mm3 (4.4-11.0)
[2024-01-22 16:59] LABS: ALB/GLOB Ratio 1.1 RATIO (0.9-2.4); AST(SGOT) 7 U/L (15-37); Alanine Aminotransfer ALT/SGPT 11 U/L (13-56); Albumin, Serum 3.9 g/dL (3.2-5.0); Alkaline Phosphatase 56 U/L (45-117); Anion Gap 8 (5-15); BUN 17 mg/dL (7-18); BUN/Creat Ratio 14.4 RATIO (10-20); Calcium,Total 9.4 mg/dL (8.5-10.1); Chloride 112 mmol/L (98-107); Creatinine, Serum 1.18 mg/dL (0.55-1.02); EST Glomerular Filtration Rate 46 mL/min (>60); Est Glom Filt Rate - Afr Amer 56 mL/min (>60); Globulin 3.5 g/dL (2.2-4.2); Glucose 97 mg/dL (74-106); Potassium 4.3 mmol/L (3.5-5.1); Protein, Total 7.4 g/dL (6.4-8.2); Sodium Level 142 mmol/L (136-145); T4 Free Direct 0.92 ng/dL (0.76-1.46)
== END | disposition home or self-care (01) ==
LOC: BIMLAB 15:02
PROVIDERS: PCP Internal Medicine; Visit Provider Internal Medicine
DX: I10 Essential (primary) hypertension (principal)
CPT/HCPCS: 36415; 80053; 84439; 84443; 85025

== ENCOUNTER 2024-02-18 23:45 | Inpatient (IN) | payer MEDICARE, OTHER, SELFPAY ==
[2024-02-18 23:46] VITALS: BP 147/56; PULSE 81; RESP 23; TEMP 36.7; O2SAT 92; BMI 37.0
--- NOTE | 2024-02-18 23:58 | EKG12_ITS ---
Test Reason : DYSRHYTHMIA Blood Pressure : */* mmHG Vent. Rate : 85 BPM Atrial Rate : 85 BPM P-R Int : 154 ms QRS Dur : 72 ms QT Int : 334 ms P-R-T Axes : 14 -29 56 degrees QTcB Int : 397 ms Normal sinus rhythm Nonspecific ST and T wave abnormality Abnormal ECG Confirmed by QUIANA PEOPLES, CHELY ([id number]), editor managing newspaper JAJA LOBO ([id number]) on 02/19/2024 10:49:34 AM Referred By: Dylan Sabillon Confirmed By: CHELY ARAYA MD
[2024-02-19] VITALS (16 sets, daily range): BP systolic 102–162; BP diastolic 43–83; PULSE 63–105; RESP 16–25; TEMP 36.4–36.9; O2SAT 91–97; BMI 25.8
--- NOTE | 2024-02-19 | RAD_ITS ---
INDICATION: injury EXAMINATION/TECHNIQUE: X-RAY - RIGHT XR Shoulder Min 2 Views 4 VIEWS COMPARISON: No relevant prior comparison study available FINDINGS: BONES: No fracture demonstrated. Surgical anchors at the humeral head. Degenerative changes at the glenohumeral and acromioclavicular joints. JOINTS: No dislocation. SOFT TISSUES: Unremarkable. RAD/Shoulder min 2 Views IMPRESSION: No evidence of fracture. Electronically Signed: Tess Soliman MD at 1:51 EST ,
--- NOTE | 2024-02-19 | CT_ITS ---
INDICATION: neck trauma EXAMINATION: CT CERVICAL SPINE - CT Spine Cervical W/O Contrast Injection TECHNIQUE: Helically acquired images were obtained of the cervical spine. 2D reformatted images were reviewed. The protocol utilizes one or more of the following dose reduction techniques: automated exposure control, adjustment of mA and/or kV according to patient size,and/or use of iterative reconstruction technique. IV Contrast dosage and agent: None. RADIATION DOSAGE (If Supplied By Facility): CTDIvol = ( 22.81 ) mGy, DLP = ( 459.96 ) mGycm COMPARISON: No relevant prior comparison study available FINDINGS: ALIGNMENT: Minimal anterior subluxation C5 on C6, C6 on C7, and C7 on T1. MINERALIZATION: Normal. VERTEBRAL BODIES: No fracture or acute abnormality. DISC SPACES: Disc space narrowing with osteophytes most pronounced C4-C6. POSTERIOR ELEMENTS: Facet arthropathy at multiple levels. SPINAL CANAL: Maintained. PARASPINAL SOFT TISSUES: Unremarkable. Carotid arterial calcifications bilaterally. OTHER: Proximal descending aorta 3.4 cm transverse. 1.2 cm nodule right lobe thyroid gland. CT/Spine Cervical without Contras IMPRESSION: No evidence of fracture or traumatic subluxation. 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 This can be correlated with CT chest if clinically indicated. Minimal multilevel anterolisthesis likely secondary to degenerative changes. Incidental thyroid nodule. Nonemergent thyroid ultrasound recommended. Electronically Signed: Tess Soliman MD at 2:09 EST ,
--- NOTE | 2024-02-19 | CT_ITS ---
INDICATION: trauma, amnesia, n/v EXAMINATION: CT BRAIN - CT Head or Brain W/O Contrast Injection TECHNIQUE: Multiple axial images were obtained of the head without intravenous contrast. The protocol utilizes one or more of the following dose reduction techniques: automated exposure control, adjustment of mA and/or kV according to patient size,and/or use of iterative reconstruction technique. IV Contrast dosage and agent: None. RADIATION DOSAGE (If Supplied By Facility): CTDIvol = ( ) mGy, DLP = ( ) mGycm COMPARISON: No relevant prior comparison study available FINDINGS: BRAIN: No acute bleed. No edema. Decreased attenuation in periventricular white matter bilaterally. Leiws-white matter differentiation is maintained. Arterial calcifications. VENTRICLES AND SULCI: The ventricles are not dilated. The sulci are prominent. EXTRA-AXIAL: No hemorrhage, fluid collection, or mass. CALVARIUM / SKULL BASE: Unremarkable. FACE/SINUSES: Minimal mucosal thickening in the sphenoid sinuses. SOFT TISSUES: Unremarkable. CT/Brain/Head without Contrast IMPRESSION: No acute abnormality. Chronic microvascular ischemic disease. CT angiogram and/or MRI may be helpful to evaluate for acute infarct as clinically indicated. Electronically Signed: Tess Soliman MD at 1:59 EST ,
--- NOTE | 2024-02-19 00:01 | RAD_ITS ---
INDICATION: fall EXAMINATION/TECHNIQUE: X-RAY - XR Pelvis 1 or 2 Views COMPARISON: No relevant prior comparison study available FINDINGS: Single view pelvis. No definite fracture demonstrated. Femoral heads are normal contour. No dislocation at the hips. RAD/Pelvis 1 or 2 Views IMPRESSION: No evidence of fracture on single view pelvis. Electronically Signed: Tess Soliman MD at 1:50 EST ,
--- NOTE | 2024-02-19 00:01 | EDS_ITS ---
HPI HPI - Fall History of Present Illness Chief Complaint: Fall Informant: patient and EMS Narrative Narrative: Patient was apparently found on the floor in her home tonight by family who could not get a hold of her earlier, so they called EMS after discovering that she had apparently fallen. The patient does not remember falling. She states that she has been vomiting today and remembers feeling dizzy at 1 point but she cannot give me any details. She remembers trying to get up but being unable and she cannot tell me why she was unable. She states her legs do not feel hurt but her right shoulder does. She denies any chest or abdominal pain. Her neck is hurting. Denies a headache. [facility] Medical History Debility Abnormal EKG Bradycardia Balance problem Right shoulder pain Osteoarthritis of right shoulder Shortness of breath Cough Chest congestion Preoperative evaluation to rule out surgical contraindication Primary osteoarthritis, right shoulder Anxiety and depression Malaise Flu vaccine need Dermatitis Fall Dizziness Edema of both lower extremities Wound, open, back History of torn meniscus of right knee Osteopenia Osteoarthritis Hiatal hernia Secondary pulmonary arterial hypertension Severe sinus bradycardia Hyperglycemia HLD (hyperlipidemia) GERD (gastroesophageal reflux disease) HTN (hypertension) Home Medications ?Medication ?Instructions ?Recorded ?Last Taken ?Type loperamide 2 mg capsule 2 mg PO Q1-4H PRN 11/13/17 Unknown History (Anti-Diarrheal (loperamide)) omeprazole 20 mg capsule,delayed 20 mg PO DAILY 11/26/18 Unknown History release 4 wheel Scooter #1 ea 12/12/18 Unknown Rx Handicap Placard #1 ea 07/18/19 Unknown Rx ascorbate calcium (vitamin C) 500 500 mg PO DAILY 12/03/19 Unknown History mg tablet biotin 5 mg capsule 5 mg PO DAILY 12/03/19 Unknown History omega-3 fatty acids-fish oil 340 2 cap PO BID heart 06/14/21 Unknown History mg-1,000 mg capsule Handicap Placard #1 ea 07/11/22 Unknown Rx albuterol sulfate 90 mcg/actuation 2 puff inhalation Q6H PRN 12/27/22 Unknown Rx aerosol inhaler shortness of breath or wheezing #8.5 grams compress.stocking,knee,reg,lrg #2 ea 02/27/23 Unknown Rx citalopram 40 mg tablet 40 mg PO DAILY depression #90 tabs 07/13/23 Unknown Rx doxazosin 4 mg tablet 4 mg PO BID 3 months #180 tabs 07/13/23 Unknown Rx cholecalciferol (vitamin D3) 1,250 1,250 mcg PO QWEEK #30 caps 10/18/23 Unknown Rx mcg (50,000 unit) capsule hydrocortisone 2.5 % topical cream 1 applic topical BID PRN rash #30 10/18/23 Unknown Rx grams gemfibrozil 600 mg tablet See Rx Instructions .Route 10/20/23 Unknown Rx .COMPLEX #180 tabs losartan 100 mg tablet 100 mg PO QDAY #90 tabs 10/20/23 Unknown Rx amlodipine 5 mg tablet 5 mg PO DAILY #90 tabs 01/08/24 Unknown Rx potassium chloride 20 mEq 20 meq PO BID #180 tabs 01/08/24 Unknown Rx tablet,extended release Allergy/AdvReac Type Severity Reaction Status Date / Time Sulfa (Sulfonamide Allergy Hives Verified 01/22/24 14:19 Antibiotics) amlodipine besylate (From AdvReac Swelling Verified 01/22/24 14:19 Norvasc) Family History Father Heart disease AAA Mother Heart disease chf Diabetes Surgical History History of repair of left rotator cuff History of repair of right rotator cuff History of bilateral breast biopsy History of cholecystectomy History of appendectomy History of total knee replacement Social History Smoking Status: Former smoker Tobacco: How many years used: 58 how long ago did patient quit smokin alcohol intake: current alcohol intake frequency: holidays/special occasions only Alcohol type: wine substance use type: does not use what type of physical activity do you participate in: walking frequency: daily duration: 15-30 minutes/day ROS ROS ED Review of Systems ROS Unobtainable: other Details: Amnestic and poor historian Constitutional Constitutional ED: Reports weakness; Denies chills or fever(s) Eyes Eyes: Denies change in vision or diplopia ENT ENT ED: Denies ear pain or facial pain Cardiovascular Cardiovascular: Denies chest pain Respiratory/Chest Respiratory/Chest: Denies cough or dyspnea Gastrointestinal Gastrointestinal: Reports nausea and vomiting; Denies abdominal pain, diarrhea or melena Musculoskeletal Musculoskeletal: Reports extremity pain and neck pain; Denies back pain Integumentary Denies abscess, Abrasions, laceration or rash Neurologic Neurologic: Denies confusion, headache(s), paresthesias or weakness EXAM Physical Exam Const Vital Signs: 02/18/24 23:46 02/18/24 23:58 02/19/24 01:45 Temperature 98.1 F Temperature Source Oral Pulse Rate 81 105 H Respiratory Rate 23 H 19 H Respiratory Depth Normal Respiratory Pattern Normal Blood Pressure 147/56 H 152/43 H Blood Pressure Mean 86 79 Pulse Ox 92 91 Oxygen Delivery Method Room Air Room Air Positive well nourished and well developed Constitutional Narrative: C-collared and backboarded by EMS General Appearance ED: well developed and NAD HEENT Reports TM's clear and nasal mucous membranes and turbinates normal atraumatic Face and Sinus: Negative for facial tenderness Tympanic Membrane ED: Yes TM's clear Eyes PERRL and EOMs intact bilaterally Visual Acuity: other Other Details: no entrapment or pain with extraocular movements Neck Neck Narrative: Mid spinal tenderness without step-off or obvious signs of trauma. C-collar maintained. General: tenderness Chest Wall inspection of chest normal and palpation of chest normal Chest: symmetrical chest wall rise; Negative for crepitus or tenderness Resp normal respiratory effort and clear to auscultation bilaterally Percussion: other equal BS bilat Cardio no murmurs Rate: regular rate Rhythm: regular rhythm GI normal to inspection, nondistended, normoactive bowel sounds, soft to palpation and non-tender GI Narrative: Pelvis stable and nontender APC Back/Spine normal ROM Back/Spine Narrative: Mild tenderness lumbar spine without any obvious signs of trauma no palpable step-offs. Cervical Spine: Negative for cervical spine tenderness Thoracic Spine / Upper Back: Negative for thoracic spinal tenderness Lumbar Spine / Lower Back: lumbar spinal tenderness Extremity normal to inspection and full ROM Extremity Narrative: Tender at the right acromioclavicular joint without swelling or obvious signs of trauma. Mild proximal humerus tenderness. Excellent range of motion of the right shoulder with minimal limitation or discomfort. There is a contusion of the lateral right elbow without any bony tenderness or limited range of motion. Pain with supination and pronation. I can externally internally rotate her about the right shoulder without significant discomfort. The other 3 extremities range fully without any pain or limitation of all joints. General Extremety ED: Yes tenderness Neuro oriented x3, CN's II-XII intact bilaterally, moves all extremities, no focal motor deficits and no sensory deficits noted Quinter Coma Scale: document GCS findings Spontaneous Obeys Commands Oriented 15 Sensorium / Orientation: awake and alert Motor Exam: general weakness Psych mental status grossly normal and thought process normal Skin no wounds Skin Narrative: Small contusion lateral right elbow no other wounds Lesions: no lesions Rashes: no rashes MDM MDM MDM Narrative Medical decision making narrative: A lot of unknowns on initial evaluation since history was limited from the patient and EMS of the days events, so working her up for injuries as well as illness/infection/metabolic disturbance or cardiopulmonary etiology that could have caused her to fall, it is unclear if she was having some type of vertigo that was making her fall and have vomiting which certainly is possible. Her last known well was unknown at that time send a stroke alert was called. Some family arrived later, grandson who found her after an uncle who is out of town called him asking him to check on her because he was unable to reach the patient on her phone which was unusual. They found her on the floor, having stripped her close off because she vomited all over them. She told them that she fell although she did not recall that for me. The uncle told them that she had been having disequilibrium for the last 2 days or so. Another family member had been over earlier in the day about 11 or 12 hours prior to evaluation in the ER, and she was doing well at that time but the time of the fall was unknown. Her workup shows a leukocytosis presumably caused by what appears to be a urinary tract infection, and I x-rayed injured areas as well as a screening 1 view pelvis x-ray which is negative on my interpretation, 1 view chest x-ray to screen for pneumonia which is negative for that on my interpretation, and CT of the head and cervical spine, both of which are negative on my interpretation and radiology is in agreement. Therefore I cleared her c-collar uneventfully. 4- view x-ray series of the right shoulder on my interpretation shows no acute fracture or dislocation including a normal axillary view. 3 view x-ray series of the lumbar spine where she had some mild tenderness is negative for acute compression or displaced fracture on my interpretation as confirmed by radiology. Further history from the patient regarding her disequilibrium: She agrees this has been going on for couple days, she denies any dizziness or feeling like anything is moving inside of her head, she only feels off balance when she tries to walk. She confirms that the vomiting associated with this and this is why she fell. She lives alone. She does have a urinary infection which I sent for culture and started her on Rocephin, I think she needs to be admitted for both of these reasons for further evaluation. History & Record Review Discussion w/independent historian: EMS personnel, Patient and Family (x2) Lab Data Attestation: I reviewed the patient's lab results. Labs: Laboratory Results - last 24 hr 02/19/24 02/19/24 00:04 01:56 WBC 14.7 H RBC 3.26 L Hgb 10.7 L Hct 31.2 L MCV 95.7 MCH 32.8 H MCHC 34.3 RDW Std Deviation 45.1 H RDW Coeff of Luis Fernando 12.9 Plt Count 189 MPV 9.3 Immature Gran % (Auto) 0.800 Neut % (Auto) 88.1 H Lymph % (Auto) 3.3 L [place] % (Auto) 7.0 Eos % (Auto) 0.5 Baso % (Auto) 0.3 Absolute Neuts (auto) 12.9 H Absolute Lymphs (auto) 0.48 L Nucleated RBC % 0 Sodium 138 Potassium 3.8 Chloride 106 Carbon Dioxide 22.0 Anion Gap 9 BUN 14 Creatinine 0.97 Estim Creat Clear Calc 47.31 Est GFR (MDRD) Af Amer 70 Est GFR (MDRD) Non-Af 58 L BUN/Creatinine Ratio 14.4 Glucose 148 H Calcium 8.7 Total Bilirubin 0.80 AST 7 L ALT 8 L Alkaline Phosphatase 52 Total Creatine Kinase 57 Troponin I High Sens < 3 L Total Protein 7.5 Albumin 3.5 Globulin 4.0 Albumin/Globulin Ratio 0.9 Urine Color Yellow Urine Clarity Sl. Cloudy Urine pH 6.0 Ur Specific [place] 1.015 Urine Protein 15 H Urine Glucose (UA) Normal Urine Ketones Negative Urine Occult Blood 10 H Urine Nitrite Positive H Urine Bilirubin Negative Urine Urobilinogen Normal Ur Leukocyte Esterase 500 H Urine RBC 0 SEEN Urine WBC 10-25 SEEN Ur Squamous Epith Cells 0-5 SEEN Urine Bacteria 2+ Urine Mucus 0 SEEN Ethyl Alcohol < 3.0 Radiography Diagnostic Testing: Clinical Impression(s) from Imaging Studies Brain CT 02/19/24 00:00 IMPRESSION: No acute abnormality. Chronic microvascular ischemic disease. CT angiogram and/or MRI may be helpful to evaluate for acute infarct as clinically indicated. Electronically Signed: Tess Soliman MD at 1:59 EST Reading Location ID and State: [facility] [place] / [place] Tel , Service support , Cervical Spine CT 02/19/24 00:00 IMPRESSION: No evidence of fracture or traumatic subluxation. 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 This can be correlated with CT chest if clinically indicated. Minimal multilevel anterolisthesis likely secondary to degenerative changes. Incidental thyroid nodule. Nonemergent thyroid ultrasound recommended. Electronically Signed: Tess Soliman MD at 2:09 EST Reading Location ID and State: [facility] [place] / [place] Tel , Service support , Shoulder X-Ray 02/19/24 00:00 IMPRESSION: No evidence of fracture. Electronically Signed: Tess Soliman MD at 1:51 EST Reading [facility] [place] Tel , Service support , Chest X-Ray 02/19/24 00:01 IMPRESSION: No evidence of active intrathoracic disease. Electronically Signed: Tess Soliman MD at 1:55 EST Reading Location ID and State: [employer] / [place] Tel , Service support , Lumbar Spine X-Ray 02/19/24 00:01 IMPRESSION: No evidence of fracture or traumatic subluxation. Degenerative changes with stable anterolisthesis at L4-5. Electronically Signed: Tess Soliman MD at 1:53 EST Reading Location ID and State: [employer] / [place] Tel , Service support , Pelvis X-Ray 02/19/24 00:01 IMPRESSION: No evidence of fracture on single view pelvis. Electronically Signed: Tess Soliman MD at 1:50 EST Reading Location ID and State: [address] [place] [address] Tel , Service support , Rhythm Strip Rhythm Strip: Sinus Rhythm Rate: 85 Ectopy: None EKG Initial EKG: Attestation: I personally reviewed and interpreted this EKG as follows: Interpretation: Sinus Rhythm, No Acute Injury Pattern and Non-Specific ST Changes (flattening diffusely) Management Discussion w/another healthcare provider: Hospitalist Discharge Plan Triage Chief Complaint: Fall ED Provider: Jose Martin Terry Dx/Rx/DC Orders Clinical Impression: Dysequilibrium, Acute UTI, Injury of shoulder, right, Generalized weakness Prescriptions: No Action loperamide [Anti-Diarrheal (loperamide)] 2 mg capsule 2 mg PO Q1-4H PRN omeprazole 20 mg capsule,delayed release(DR/EC) 20 mg PO DAILY ascorbate calcium (vitamin C) 500 mg tablet 500 mg PO DAILY biotin 5 mg capsule 5 mg PO DAILY (DME) Handicap Placard See Rx Instructions .ROUTE .MEDSUPPLY Qty: 1 0RF Rx Instructions: As directed, length of time 3 years (DME) compress.stocking,knee,reg,lrg Misc See Rx Instructions .MEDSUPPLY Qty: 2 1RF Rx Instructions: wear daily for venous insufficiency 20-30 mmHg hydrocortisone 2.5 % cream 1 applic topical BID PRN (Reason: rash) Qty: 30 1RF omega-3 fatty acids-fish oil 340-1,000 mg capsule 2 cap PO BID Patient Comments: takes 1 capule in the morning and 2 capsules in the evening (DME) 4 wheel Scooter Qty: 1 0RF Rx Instructions: As directed (DME) Handicap Placard See Rx Instructions .ROUTE .MEDSUPPLY Qty: 1 0RF Rx Instructions: As directed, length of time 3 years albuterol sulfate 90 mcg/actuation HFA aerosol inhaler 2 puff inhalation Q6H PRN (Reason: shortness of breath or wheezing) Qty: 8.5 4RF doxazosin 4 mg tablet 4 mg PO BID 90 Days Qty: 180 3RF citalopram 40 mg tablet 40 mg PO DAILY Qty: 90 3RF cholecalciferol (vitamin D3) 1,250 mcg (50,000 unit) capsule 1,250 mcg PO QWEEK Qty: 30 1RF gemfibrozil 600 mg tablet See Rx Instructions .ROUTE .COMPLEX Qty: 180 3RF Dose Instruction: TAKE 1 TABLET BY MOUTH TWICE DAILY Rx Instructions: TAKE 1 TABLET BY MOUTH TWICE DAILY losartan 100 mg tablet 100 mg PO QDAY Qty: 90 3RF potassium chloride 20 mEq tablet extended release 20 meq PO BID Qty: 180 3RF Rx Instructions: Dissolve tabs in water BID. amlodipine 5 mg tablet 5 mg PO DAILY Qty: 90 3RF Primary Care Provider: Ton Espino Referrals: Ton Espino MD [Primary Care Provider] - Print Language: Kinyarwanda Disposition Disposition: Acute Care Hospital [facility]
--- NOTE | 2024-02-19 00:01 | RAD_ITS ---
INDICATION: weakness EXAMINATION/TECHNIQUE: X-RAY - XR Chest 1 View COMPARISON: Prior study dated: 02/23/2022 FINDINGS: LINES/DEVICES: None. LUNGS: No consolidation. No pneumothorax. MEDIASTINUM: Aorta is atherosclerotic. CARDIAC SILHOUETTE: Not enlarged. BONES AND SOFT TISSUES: No acute abnormalities. RAD/Chest 1 View (Portable) IMPRESSION: No evidence of active intrathoracic disease. Electronically Signed: Tess Soliman MD at 1:55 EST ,
--- NOTE | 2024-02-19 00:01 | RAD_ITS ---
INDICATION: fall/injury EXAMINATION/TECHNIQUE: X-RAY - XR Spine Lumbar 2 or 3 Views COMPARISON: Prior study dated: 11/13/2023 FINDINGS: The vertebral bodies are normal in height. No definite fracture demonstrated. Mild anterior subluxation of L4 on L5 is not significantly changed compared to the prior. Disc space narrowing and osteophytes at most levels, and facet arthropathy. No paravertebral soft tissue mass identified. Aortic calcifications noted. RAD/Lumbar Spine 2 or 3 Views IMPRESSION: No evidence of fracture or traumatic subluxation. Degenerative changes with stable anterolisthesis at L4-5. Electronically Signed: Tess Soliman MD at 1:53 EST ,
[2024-02-19 00:10] LABS: Absolute Lymphocyte Count 0.48 X10^3/uL (0.83-4.51); Absolute Neutrophil Count 12.9 X10^3/uL (2.0-7.7); Basophil# 0.04 X10^3/uL; Basophil% 0.3 % (0-1); Eosinophil# 0.08 X10^3/uL; Eosinophils% 0.5 % (0-5); Hematocrit 31.2 % (37-47); Hemoglobin 10.7 g/dL (12.0-15.0); Lymphocyte # 0.48 X10^3/ul (0.83-4.51); Lymphocyte % 3.3 % (19-41); Mean Corp Hgb Conc 34.3 g/dL (32-36); Mean Corpuscular Hgb 32.8 pg (27.0-32.0); Mean Corpuscular Volume 95.7 fL (81-99); Mean Platelet Vol. 9.3 fl (6.2-12.0); Monocyte# 1.02 X10^3/uL; NRBC Flagged by Analyzer 0 % (0-5); Neutrophil # 12.93 X10^3/uL (2.7-7.7); Neutrophil % 88.1 % (47-70); POSITIVE DIFFERENTIAL YES; Platelet Count 189 K/mm3 (150-450); RBC Distribution Width CV 12.9 % (11.6-14.6); RBC Distribution Width SD 45.1 fl (35.1-43.9); Red Blood Count 3.26 M/mm3 (4.2-5.4); White Blood Count 14.7 K/mm3 (4.4-11.0)
[2024-02-19 00:31] LABS: Alcohol, Blood (Medical)-Serum < 3.0 mg/dL
[2024-02-19 00:32] LABS: ALB/GLOB Ratio 0.9 RATIO (0.9-2.4); AST(SGOT) 7 U/L (15-37); Alanine Aminotransfer ALT/SGPT 8 U/L (13-56); Albumin, Serum 3.5 g/dL (3.2-5.0); Alkaline Phosphatase 52 U/L (45-117); Anion Gap 9 (5-15); BUN 14 mg/dL (7-18); BUN/Creat Ratio 14.4 RATIO (10-20); CPK Total, Creatine Kinase 57 U/L (26-192); Calcium,Total 8.7 mg/dL (8.5-10.1); Chloride 106 mmol/L (98-107); Creatinine, Serum 0.97 mg/dL (0.55-1.02); EST Glomerular Filtration Rate 58 mL/min (>60); Est Glom Filt Rate - Afr Amer 70 mL/min (>60); Estimated Creatinine Clearance 47.31 ml/min; Glucose 148 mg/dL (74-106); Potassium 3.8 mmol/L (3.5-5.1); Protein, Total 7.5 g/dL (6.4-8.2); Sodium Level 138 mmol/L (136-145); Troponin-I HS < 3 pg/mL (3.0-54.0)
[2024-02-19] MEDS: 0.9% Normal Saline (500mL Bag) 500 ML 1000 ML IV (01:24)
[2024-02-19] MEDS: Acetaminophen 325 MG Tablet 650 MG PO ×5 (01:56→23:46)
[2024-02-19 02:00] LABS: Mucous, Urine 0 SEEN /hpf (<or=2+); Red Blood Cells-Urine 0 SEEN /hpf (0-5)
[2024-02-19 02:02] LABS: Color, Urine Yellow (Yellow); Glucose, Dipstick Normal (Normal); Ketone-Dipstick Negative (Negative); Leukocyte Esterase-Dipstick 500 /ul (Negative); Nitrite-Dipstick Positive (Negative); Occult Blood-Urine 10 /ul (Negative); Protein-Dipstick 15 mg/dl (Negative); Specific Gravity, Urine 1.015 (1.002-1.030); Urine Bilirubin Dipstick Negative (Negative); Urine Clarity Sl. Cloudy (Clear); Urine Urobilinogen Normal (Normal)
[2024-02-19 02:25] LABS: Bacteria 2+ /hpf (None Seen); Squamous Epithelial Cells - UA 0-5 SEEN /hpf (5-10); White Blood Cells 10-25 SEEN /hpf (0-5)
[2024-02-19] MEDS: Ceftriaxone 1 GM/50 ML BAG IV ×2 (02:40→21:33)
--- NOTE | 2024-02-19 02:45 | HP.PCM.HOS_ITS ---
[facility] - General General Date of Admission: 02/19/24 Date of Service: 02/19/24 Chief Complaint: Fall with AMS. HPI Narrative SHAQ FARIAS, is a 88 F with a past medical history of essential hypertension; on losartan and amlodipine, history of dyslipidemia; on gemfibrozil, obesity; with BMI of 37 this admission, history of severe sinus bradycardia, history of secondary pulmonary arterial hypertension, depression; on citalopram, overactive bladder, history of UTI, GERD; with hiatal hernia, history of appendectomy, history of cholecystectomy, history of breast biopsy, listed allergy to sulfa antibiotics (hives), listed allergy to amlodipine (swelling), osteoporosis, history of bilateral rotator cuff surgery, OA; with history of torn meniscus of Right knee, Right TKR and chronic pain in Right shoulder with chronic disequilibrium who presents to [facility] ER complaining of fall with altered mental status. Ms. Farias is not a fully- reliable historian at this time so information was gathered from chart, medical staff and computer. According to the records she was found on the floor in her home tonight by her family after a family member in another state could not contact her by phone prompting another family member to check on her and finding her on the bathroom floor. The patient does not remember falling but she does remember not being able to get up and having nausea and vomiting with dizziness with patient unable to give any other details. She does complain of right shoulder pain and mild neck pain but she denies headache, chest pain or abdominal pain. In the ER she was noted to have a urinalysis positive for Acute Cystitis; without hematuria with corresponding laboratory evidence of Leukocytosis of 14.7 K present on admission complicated by clinical evidence of Acute Metabolic Encephalopathy and Generalized Weakness with Ambulatory Dysfunction and Fall with subsequent inability to get herself up. She was then admitted to the general medical floor with telemetric monitoring for ongoing care for status expected to extend beyond 2 midnights. [facility] Medical History (Updated 02/19/24 @ 04:[address] Dylan Sabillon DO) Debility Abnormal EKG Bradycardia Balance problem Right shoulder pain Osteoarthritis of right shoulder Shortness of breath Cough Chest congestion Preoperative evaluation to rule out surgical contraindication Primary osteoarthritis, right shoulder Anxiety and depression Malaise Flu vaccine need Dermatitis Fall Dizziness Edema of both lower extremities Wound, open, back History of torn meniscus of right knee Osteopenia Osteoarthritis Hiatal hernia Secondary pulmonary arterial hypertension Severe sinus bradycardia Hyperglycemia HLD (hyperlipidemia) GERD (gastroesophageal reflux disease) HTN (hypertension) Home Medications ?Medication ?Instructions ?Recorded ?Last Taken ?Type loperamide 2 mg capsule 2 mg PO Q1-4H PRN loose stool 11/13/17 Unknown History (Anti-Diarrheal (loperamide)) omeprazole 20 mg capsule,delayed 20 mg PO DAILY 11/26/18 Unknown History release 4 wheel Scooter #1 ea 12/12/18 Unknown Rx Handicap Placard #1 ea 07/18/19 Unknown Rx ascorbate calcium (vitamin C) 500 500 mg PO DAILY 12/03/19 Unknown History mg tablet biotin 5 mg capsule 5 mg PO DAILY 12/03/19 Unknown History omega-3 fatty acids-fish oil 340 2 cap PO BID heart 06/14/21 Unknown History mg-1,000 mg capsule Handicap Placard #1 ea 07/11/22 Unknown Rx albuterol sulfate 90 mcg/actuation 2 puff inhalation Q6H PRN 12/27/22 Unknown Rx aerosol inhaler shortness of breath or wheezing #8.5 grams compress.stocking,knee,reg,lrg #2 ea 02/27/23 Unknown Rx citalopram 40 mg tablet 40 mg PO DAILY depression #90 tabs 07/13/23 Unknown Rx doxazosin 4 mg tablet 4 mg PO BID 3 months #180 tabs 07/13/23 Unknown Rx cholecalciferol (vitamin D3) 1,250 1,250 mcg PO QWEEK #30 caps 10/18/23 Unknown Rx mcg (50,000 unit) capsule gemfibrozil 600 mg tablet See Rx Instructions .Route 10/20/23 Unknown Rx .COMPLEX #180 tabs losartan 100 mg tablet 100 mg PO QDAY #90 tabs 10/20/23 Unknown Rx amlodipine 5 mg tablet 5 mg PO DAILY #90 tabs 01/08/24 Unknown Rx potassium chloride 20 mEq 20 meq PO BID #180 tabs 01/08/24 Unknown Rx tablet,extended release Allergy/AdvReac Type Severity Reaction Status Date / Time Sulfa (Sulfonamide Allergy Hives Verified 01/22/24 14:19 Antibiotics) amlodipine besylate (From AdvReac Swelling Verified 01/22/24 14:19 Norvasc) Family History Father Heart disease AAA Mother Heart disease chf Diabetes Surgical History History of repair of left rotator cuff History of repair of right rotator cuff History of bilateral breast biopsy History of cholecystectomy History of appendectomy History of total knee replacement Social History Smoking Status: Former smoker Tobacco: How many years used: 58 how long ago did patient quit smokin alcohol intake: current alcohol intake frequency: holidays/special occasions only Alcohol type: wine substance use type: does not use what type of physical activity do you participate in: walking frequency: daily duration: 15-30 minutes/day ROS ROS Narrative Full review of systems was not possible due to patient's acute illness complicated by metabolic encephalopathy. Vital Signs Vital Signs Vital Signs: 02/18/24 23:46 02/18/24 23:58 02/19/24 01:45 Temperature 98.1 F Temperature Source Oral Pulse Rate 81 105 H Respiratory Rate 23 H 19 H Respiratory Depth Normal Respiratory Pattern Normal Blood Pressure 147/56 H 152/43 H Blood Pressure Mean 86 79 Pulse Ox 92 91 Oxygen Delivery Method Room Air Room Air Weight Weight: 215 lb 13.321 oz Body Mass Index (BMI) 37.0 Physical Exam Const alert, no apparent distress and average body habitus General Appearance: cooperative Orientation / Consciousness: confused HEENT normocephalic, head/scalp atraumatic and hearing grossly normal bilaterally HEENT Narrative: Mucous membranes dry. Eyes PERRL and EOMs intact bilaterally Neck no lymphadenopathy and supple Resp normal respiratory effort, no retractions, no use of accessory muscles and clear to auscultation bilaterally Cardio regular rate and regular rhythm GI normal to inspection, nondistended, normoactive bowel sounds, soft to palpation, non-tender and non-distended Extremity normal to inspection and no clubbing, cyanosis or edema Extremity Narrative: Patient is complaining of pain in Right shoulder and mild neck pain. Skin Skin Narrative: Patient has no evidence of rash, abscess or jaundice. Neuro CN's II-XII intact bilaterally, moves all extremities and no focal motor deficits Neuro Narrative: Patient is alert but confused with very limited memory. Sensorium / Orientation: awake, alert, oriented to person and oriented to place Speech: speech normal Psych affect normal Results Medical Records Data Attestation: I reviewed the patient's medical records Lab / Micro Data Attestation: I reviewed the patient's lab results. 02/19/24 00:04 02/19/24 00:04 Labs: Laboratory Results - last 24 hr 02/19/24 00:04: WBC 14.7 H, RBC 3.26 L, Hgb 10.7 L, Hct 31.2 L, MCV 95.7, MCH 32.8 H, MCHC 34.3, RDW Std Deviation 45.1 H, RDW Coeff of Luis [place] 12.9, Plt Count 189, MPV 9.3, Immature Gran % (Auto) 0.800, Neut % (Auto) 88.1 H, Lymph % (Auto) 3.3 L, [place] % (Auto) 7.0, Eos % (Auto) 0.5, Baso % (Auto) 0.3, Absolute Neuts (auto) 12.9 H, Absolute Lymphs (auto) 0.48 L, Nucleated RBC % 0, Sodium 138, Potassium 3.8, Chloride 106, Carbon Dioxide 22.0, Anion Gap 9, BUN 14, Creatinine 0.97, Estim Creat Clear Calc 47.31, Est GFR (MDRD) Af Amer 70, Est GFR (MDRD) Non-Af 58 L, BUN/Creatinine Ratio 14.4, Glucose 148 H, Calcium 8.7, Total Bilirubin 0.80, AST 7 L, ALT 8 L, Alkaline Phosphatase 52, Total Creatine Kinase 57, Troponin I High Sens < 3 L, Total Protein 7.5, Albumin 3.5, Globulin 4.0, Albumin/Globulin Ratio 0.9, Ethyl Alcohol < 3.0 02/19/24 01:56: Urine Color Yellow, Urine Clarity Sl. Cloudy, Urine pH 6.0, Ur Specific [place] 1.015, Urine Protein 15 H, Urine Glucose (UA) Normal, Urine Ketones Negative, Urine Occult Blood 10 H, Urine Nitrite Positive H, Urine Bilirubin Negative, Urine Urobilinogen Normal, Ur Leukocyte Esterase 500 H, Urine RBC 0 SEEN, Urine WBC 10-25 SEEN, Ur Squamous Epith Cells 0-5 SEEN, Urine Bacteria 2+, Urine Mucus 0 SEEN Micro: Microbiology 02/19/24 00:50 Mucosa - Nose SARS-CoV-2, Influenza & RSV (PCR) - Final Rhythm Strip Rhythm Strip: Sinus Rhythm Rate: 85 Ectopy: None Imaging Radiology Impression Brain CT 02/19/24 00:00 IMPRESSION: No acute abnormality. Chronic microvascular ischemic disease. CT angiogram and/or MRI may be helpful to evaluate for acute infarct as clinically indicated. Electronically Signed: Tess Soliman MD at 1:59 EST Reading Location ID and State: [facility] / [place] Tel , Service support , Cervical Spine CT 02/19/24 00:00 IMPRESSION: No evidence of fracture or traumatic subluxation. 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 This can be correlated with CT chest if clinically indicated. Minimal multilevel anterolisthesis likely secondary to degenerative changes. Incidental thyroid nodule. Nonemergent thyroid ultrasound recommended. Electronically Signed: Tess Soliman MD at 2:09 EST Reading Location ID and State: [facility] / [place] Tel , Service support , Shoulder X-Ray 02/19/24 00:00 IMPRESSION: No evidence of fracture. Electronically Signed: Tess Soliman MD at 1:51 EST Reading [facility] and [facility] [place] Tel , Service support , Chest X-Ray 02/19/24 00:01 IMPRESSION: No evidence of active intrathoracic disease. Electronically Signed: Tess Soliman MD at 1:55 EST , Lumbar Spine X-Ray 02/19/24 00:01 IMPRESSION: No evidence of fracture or traumatic subluxation. Degenerative changes with stable anterolisthesis at L4-5. Electronically Signed: Tess Soliman MD at 1:53 EST Reading Location ID and State: [facility] / [place] Tel , Service support , Pelvis X-Ray 02/19/24 00:01 IMPRESSION: No evidence of fracture on single view pelvis. Electronically Signed: Tess Soliman MD at 1:50 EST , Assessment & Plan Assessment/Plan (1) Acute cystitis without hematuria: (2) Metabolic encephalopathy: (3) Nausea vomiting and diarrhea: (4) Generalized weakness: (5) Ambulatory dysfunction: (6) Right shoulder pain: QUALIFIERS: Chronicity: chronic Qualified Code(s): M25.511 - Pain in right shoulder; G89.29 - Other chronic pain (7) Fall: QUALIFIERS: Encounter type: initial encounter Qualified Code(s): W19.XXXA - Unspecified fall, initial encounter (8) Dysequilibrium: (9) Osteoarthritis: QUALIFIERS: Osteoarthritis location: unspecified site O steoarthritis type: unspecified Qualified Code(s): M19.90 - Unspecified osteoarthritis, unspecified site (10) Obesity (BMI 30-39.9): (11) Thyroid nodule: PLAN: Plan 1. Acute Cystitis; without hematuria with corresponding laboratory evidence of Leukocytosis of 14.7 K present on admission and patient also suspected to have nausea and vomiting with suspected chronic diarrhea; on prn loperamide - Admit to general medical floor under enteric and aspiration precautions with telemetric monitoring. Continue empiric IV Rocephin begun in the ER and await culture and sensitivity data. Check stool studies. Give Tylenol as needed pain or fever. Give Zofran IV as needed for nausea and vomiting. 2. Acute Metabolic Encephalopathy arising from #1 - Treat infection as outlined above and monitor for improvement. Check TSH, B12, folate, ISH and UDS to evaluate for potentially reversible causes of confusion. 3. Generalized Weakness with Ambulatory Dysfunction and Fall likely arising from #1 & #2 in the setting of known Chronic Dysequilibrium and OA; with history of torn meniscus of Right knee, Right TKR and chronic pain in Right shoulder - PT/OT and Case Management to consult and treat on-rounds in AM for further recommendations with help appreciated in advance. 4. Obesity; with BMI of 37 this admission compounding #1 - #3 - Weight loss will be recommended. Check TSH. This complicates her case and may hamper recovery. 5. Incidentally noted thyroid nodule on CT this admission with thyroid ultrasound recommended - Thyroid ultrasound ordered in a.m. Check TSH. 6. Incidentally noted proximal descending aortic aneurysm ~3.4 cm partially included - Noted. 7. Essential hypertension; on losartan and amlodipine - Maintain home regimen as previous plus give prn hydralazine IV for systolic blood pressure > 160 mmHg. 8. History of dyslipidemia; on gemfibrozil - Continue gemfibrozil and check lipid profile this admission. 9. History of severe sinus bradycardia - Apparently stable with patient's heart rate noted to be between 50 to 105 bpm and currently at 78 bpm. 10. History of secondary pulmonary arterial hypertension - Noted. 11. Depression; on citalopram - Resume citalopram as before. 12. History of overactive bladder - Patient currently not on pharmacologic treatment for this issue. 13. History of UTI - Noted with recurrence outlined in #1. 14. GERD; with hiatal hernia - Maintain PPI as previous. 15. History of appendectomy - Noted. 16. History of cholecystectomy - Noted. 17. History of bilateral rotator cuff surgery - Noted. 18. History of breast biopsy - Noted. 19. Osteoporosis - Stable with patient currently noted to be on chronic vitamin D3 supplementation. 20. Listed allergy to sulfa antibiotics (hives) - Noted. 21. Listed allergy to amlodipine (swelling) - Noted. 22. DVT prophylaxis - Lovenox 40 mg sq daily plus SCD's. Total time: Approximately (but not less than) 75 minutes. Charges/Coding Visit Charges Inpatient E&M: 73736 Init Hosp L3
[2024-02-19 03:31] LABS: Amphetamine Urine VISTA NEGATIVE (<1000 ng/mL); Barbiturate Urine VISTA NEGATIVE (< 200 ng/mL); Benzodiazepine Urine VISTA NEGATIVE (< 200 ng/mL); Cocaine Urine VISTA NEGATIVE (< 300 ng/mL); Ecstacy Urine VISTA NEGATIVE (< 500 ng/mL); Methadone Urine VISTA NEGATIVE (< 300 ng/mL); PCP Urine VISTA NEGATIVE (< 25 ng/mL); THC Urine VISTA NEGATIVE (< 50 ng/mL); Vista UDS pH Range 5
[2024-02-19 03:47] LABS: Thyroid Stim Hormone (TSH) 0.707 uIU/mL (0.358-3.740)
--- NOTE | 2024-02-19 04:01 | ED.RN ---
patient states she updated her grandson Abner that she will be staying in the hospital
--- NOTE | 2024-02-19 04:40 | US_ITS ---
STUDY: THYROID ULTRASOUND REASON FOR EXAM: Female, 88 years old. Thyroid nodule noted on CT. TECHNIQUE: Ultrasound evaluation of the thyroid was performed with real-time and static valentin-scale imaging. COMPARISON: CT 02/19/2024 FINDINGS: RIGHT LOBE: The right lobe of the thyroid gland measures 4.4 x 1.8 x 2.1 cm. There is a homogeneous echotexture. Nodule 1:11 x 10 x 9 mm solid hypoechoic wider than tall smoothly margined nodule with no echogenic foci (TR 4) in the medial right lobe and follow-up ultrasound is recommended one year. LEFT LOBE: The left lobe of the thyroid gland measures 3.8 x 1.6 x 1.7 cm. There is a homogeneous echotexture. There are no demonstrated solid, cystic or complex lesions. ISTHMUS: The isthmus measures 1 mm thick . The regional lymph nodes are normal. US/Thyroid IMPRESSION: Dominant nodule in the right lobe and follow-up ultrasound is recommended in one year. Electronically Signed: Tiago Bryan MD at 13:07 EST ,
[2024-02-19] MEDS: 0.9% Normal Saline (1000mL) 1,000 ML 70 ML IV (04:57)
[2024-02-19] MEDS: Enoxaparin 40 MG/0.4 ML Syringe SC (07:49)
[2024-02-19] MEDS: Ascorbic Acid 500 MG Tablet 1000 MG PO ×2 (07:50→15:11)
[2024-02-19] MEDS: Citalopram 40 MG TABLET PO (07:50)
[2024-02-19] MEDS: Potassium Chloride Oral Tablet 20 MEQ PO ×2 (07:51→19:57)
[2024-02-19] MEDS: Pantoprazole Sodium 20 MG Tablet PO (07:51)
[2024-02-19] MEDS: Gemfibrozil 600 MG Tablet PO ×2 (07:51→19:57)
[2024-02-19] MEDS: Cholecalciferol (Vit D3) 125 MCG CAPSULE (5,000 UNITS) PO (07:51)
[2024-02-19] MEDS: Lactobacillis Acidophilus 1 CAP PO ×4 (07:52→19:57)
--- NOTE | 2024-02-19 07:54 | PN.HOSP_ITS ---
Reason for Visit Reason for Visit: Diagnoses Nontoxic single thyroid nodule (02/19/24) Obesity, unspecified (02/19/24) Other chronic pain (02/19/24) Metabolic encephalopathy (02/19/24) Unspecified osteoarthritis, unspecified site (02/19/24) Pain in right shoulder (02/19/24) Acute cystitis without hematuria (02/19/24) Nausea with vomiting, unspecified (02/19/24) Diarrhea, unspecified (02/19/24) Difficulty in walking, not elsewhere classified (02/19/24) Dizziness and giddiness (02/19/24) Weakness (02/19/24) Unspecified fall, initial encounter (02/19/24) Objective Data Objective Data Vital Signs: Vital Signs Temp Pulse Resp BP Pulse Ox O2 Del Method O2 Flow Rate 98.4 F 65 16 102/62 96 Nasal Cannula 2 02/19/24 07:47 02/19/24 07:47 02/19/24 07:47 02/19/24 07:47 02/19/24 07:47 02/19/24 07:47 02/19/24 07:47 Oxygen Flow Rate (L/min) 2 Oxygen Delivery Method Nasal Cannula Weight: 150 lb 5.684 oz Body Mass Index (BMI) 25.8 Intake & Output: Intake and Output for Last 24 Hours 02/17/24 02/18/24 02/19/24 23:59 23:59 23:59 Intake Total 670 / 670 Output Total 125 / 125 Balance 545 / 545 Lab / Micro Data 02/19/24 00:04 02/19/24 00:04 Labs: Laboratory Results - last 24 hr 02/19/24 00:04: WBC 14.7 H, RBC 3.26 L, Hgb 10.7 L, Hct 31.2 L, MCV 95.7, MCH 32.8 H, MCHC 34.3, RDW Std Deviation 45.1 H, RDW Coeff of Luis Fernando 12.9, Plt Count 189, MPV 9.3, Immature Gran % (Auto) 0.800, Neut % (Auto) 88.1 H, Lymph % (Auto) 3.3 L, [place] % (Auto) 7.0, Eos % (Auto) 0.5, Baso % (Auto) 0.3, Absolute Neuts (auto) 12.9 H, Absolute Lymphs (auto) 0.48 L, Nucleated RBC % 0, Sodium 138, Potassium 3.8, Chloride 106, Carbon Dioxide 22.0, Anion Gap 9, BUN 14, Creatinine 0.97, Estim Creat Clear Calc 47.31, Est GFR (MDRD) Af Amer 70, Est GFR (MDRD) Non-Af 58 L, BUN/Creatinine Ratio 14.4, Glucose 148 H, Calcium 8.7, Total Bilirubin 0.80, AST 7 L, ALT 8 L, Alkaline Phosphatase 52, Total Creatine Kinase 57, Troponin I High Sens < 3 L, Total Protein 7.5, Albumin 3.5, Globulin 4.0, Albumin/Globulin Ratio 0.9, Folate 12.70, TSH 0.707, Ethyl Alcohol < 3.0 02/19/24 01:56: Urine Color Yellow, Urine Clarity Sl. Cloudy, Urine pH 6.0, Ur Specific [place] 1.015, Urine Protein 15 H, Urine Glucose (UA) Normal, Urine Ketones Negative, Urine Occult Blood 10 H, Urine Nitrite Positive H, Urine Bilirubin Negative, Urine Urobilinogen Normal, Ur Leukocyte Esterase 500 H, Urine RBC 0 SEEN, Urine WBC 10-25 SEEN, Ur Squamous Epith Cells 0-5 SEEN, Urine Bacteria 2+, Urine Mucus 0 SEEN, Urine Opiates Screen NEGATIVE, Urine Methadone Screen NEGATIVE, Ur Barbiturates Screen NEGATIVE, Ur Phencyclidine Scrn NEGATIVE, Ur Amphetamines Screen NEGATIVE, MDMA (Ecstasy) Screen NEGATIVE, U Benzodiazepines Scrn NEGATIVE, Urine Cocaine Screen NEGATIVE, U Cannabinoids Screen NEGATIVE, Ur Drug Screen Comment Micro: Microbiology 02/19/24 00:50 Mucosa - Nose SARS-CoV-2, Influenza & RSV (PCR) - Final Radiography Diagnostic Testing: Radiology Impression Brain CT 02/19/24 00:00 IMPRESSION: No acute abnormality. Chronic microvascular ischemic disease. CT angiogram and/or MRI may be helpful to evaluate for acute infarct as clinically indicated. Electronically Signed: Tess Soliman MD at 1:59 EST , Cervical Spine CT 02/19/24 00:00 IMPRESSION: No evidence of fracture or traumatic subluxation. 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 This can be correlated with CT chest if clinically indicated. Minimal multilevel anterolisthesis likely secondary to degenerative changes. Incidental thyroid nodule. Nonemergent thyroid ultrasound recommended. Electronically Signed: Tess Soliman MD at 2:09 EST , Shoulder X-Ray 02/19/24 00:00 IMPRESSION: No evidence of fracture. Electronically Signed: Tess Soliman MD at 1:51 EST Reading Location ID and State: [employer] / [place] Tel , Service support , Chest X-Ray 02/19/24 00:01 IMPRESSION: No evidence of active intrathoracic disease. Electronically Signed: Tess Soliman MD at 1:55 EST Reading [facility] [place] Tel , Service support , Lumbar Spine X-Ray 02/19/24 00:01 IMPRESSION: No evidence of fracture or traumatic subluxation. Degenerative changes with stable anterolisthesis at L4-5. Electronically Signed: Tess Soliman MD at 1:53 EST Reading Location ID and State: [employer] / [place] Tel , Service support , Pelvis X-Ray 02/19/24 00:01 IMPRESSION: No evidence of fracture on single view pelvis. Electronically Signed: Tess Soliman MD at 1:50 EST , Rhythm Strip Rhythm Strip: Sinus Rhythm Rate: 85 Ectopy: None Physical Exam Narrative Patient seen and examined. Patient was admitted after she was found on the floor checked by the daughter. She stated she does not know how she came on the floor and maybe rolled down from the recliner chair. Denies major injury. To the ED physician she said she also had vomiting and feeling dizzy. She states that she has increased frequency and urgency but denies burning micturition. No fever. Physical exam General: Alert, Oriented x3, Cooperative, seems forgetful HEENT: Atraumatic, PERRLA, EOMI, Normocephalic Oral: No Gingival or Mucosal Lesions/ Ulcerations Neck: Supple, No JVD, Negative Carotid Bruits Chest wall/Lungs: Air entry diminished in bilateral lung bases. No crepitation/rhonchi Cardiovascular: Regular rate, Regular Rhythm, Normal S1, Normal S2, mild systolic murmur. Abdomen: Bowel Sounds Present, Soft, Non Tender, Non-Distended : No dysuria. No renal angle tenderness. No suprapubic tenderness. Extremities: No edema, Capillary Refill Less than 3 Seconds Skin: No rashes, No breakdown Musculoskeletal: No Tenderness to Palpation of Joints or Extremities. Degenerative arthritis. Neurological: Cranial nerves II-XII grossly intact, DTR 2+/4. No acute focal neurological deficit. Psych/Mental Status: Anterograde and retrograde amnesia. She still drives. Assessment & Plan Assessment/Plan (1) Acute cystitis without hematuria: (2) Metabolic encephalopathy: (3) Nausea vomiting and diarrhea: (4) Generalized weakness: (5) Ambulatory dysfunction: (6) Right shoulder pain: QUALIFIERS: Chronicity: chronic Qualified Code(s): M25.511 - Pain in right shoulder; G89.29 - Other chronic pain (7) Fall: QUALIFIERS: Encounter type: initial encounter Qualified Code(s): W19.XXXA - Unspecified fall, initial encounter (8) Dysequilibrium: (9) Osteoarthritis: QUALIFIERS: Osteoarthritis location: unspecified site O steoarthritis type: unspecified Qualified Code(s): M19.90 - Unspecified osteoarthritis, unspecified site (10) Obesity (BMI 30-39.9): (11) Thyroid nodule: PLAN: Plan This is a 88-year-old female was brought to the to ED when she apparently rolled down from recliner to floor. She was also feeling dizzy and vomited to the ED physician. 1. Acute Cystitis: Patient has increased frequency and urgency but denies dysuria. Patient has leukocytosis and UA positive of nitrite and LE, pyuria and bacteriuria. Empirically on IV ceftriaxone. Urine culture pending. Previous urine culture was mixed gram-positive and negative organisms. 2. Acute Metabolic Encephalopathy with possible chronic dementia- Treat infection as outlined above and monitor for improvement. 02/18: U tox is negative. TSH normal. B12 low normal. Folate normal. B12 replacement ordered. Discussed with the patient's daughter. She stated that she might have dementia as she is forgetful does not remember and cannot take care of herself. When I talked to the patient she said she is still driving but sometimes she forgets. Discussed with case coordinator and social studies teacher. She asked me to keep the patient until February 20 and I told when she is medically readyshe will be discharged. 3. Generalized Weakness with Ambulatory Dysfunction and Fall likely arising from #1 & #2 in the setting of known Chronic Dysequilibrium and OA; with history of torn meniscus of Right knee, Right TKR and chronic pain in Right shoulder - PT/OT and Case Management to consult and treat on-rounds in AM for further recommendations with help appreciated in advance. 4. Obesity; with BMI of 37 Kg/m2- Weight loss will be recommended. Check TSH. This complicates her case and may hamper recovery. 5. Incidentally noted thyroid nodule on CT this admission with thyroid ultrasound recommended - 02/18: TSH 0.707. Normal. Thyroid ultrasound was done which shows dominant hypoechoic nodule 1.1 x 10 x 9 mm, wider than taller shows smoking margin with no echogenic foci. Recommended repeat thyroid ultrasound in 1 year. 7. Essential hypertension; on losartan and amlodipine, secondary pulmonary hypertension-not on any medication for pulmonary hypertension. 8. Chronic dyslipidemia; on gemfibrozil - Continue gemfibrozil and check lipid profile this admission. 9. Depression; on citalopram - Resume citalopram as before. 10. Chronic overactive bladder - Patient currently not on pharmacologic treatment for this issue. 11. DVT prophylaxis - Lovenox 40 mg sq daily plus SCD's. Charges/Coding Visit Charges Inpatient E&M: 08614 Subs Hosp L2
[2024-02-19 07:56] LABS: Magnesium 1.8 mg/dL (1.6-2.6); Phosphorus 2.2 mg/dL (2.5-4.9)
[2024-02-19 08:33] LABS: Vitamin B12 246 pg/mL (211-911)
--- NOTE | 2024-02-19 10:05 | CASEMGMT ---
Social Work SW met w/pt in room, reviewed prior level of function and anticipated discharge plan. PCP: Dr. Espino Specialists: None Pharmacy: [facility] in [place] Living arrangements: Pt lives home alone in a one story home, one step to enter. Pt independent with ADLs, bathing, dressing, ambulation, driving. Pt does have a cleaning lady who comes in once per week. Pt does her own laundry, family moved her laundry to the main floor. LNOK: Pt has three children, one son who is local, one son in [place], one daughter in [place]. LW/POA: Pt has completed POA, SW let her know it's not on file. Pt confirms son Gibran is her POA for healthcare. Transportation: Pt drives DME: Pt uses a cane at her baseline. She has a walker if needed, has a shower chair. Pt not on O2 at home. HHC/SNF: Pt has not had either, though would like HHC after this hospital stay. Plan: Pt states she plans to return home but is open to home health care. SW explained will let case management know, so they can speak w/her about HHC. KENYON Delatorre
[2024-02-19] MEDS: Losartan Potassium 100 MG Tablet PO (10:19)
[2024-02-19] MEDS: amLODIPine 5 MG Tablet PO (10:20)
[2024-02-19] MEDS: FLU VACCINE **HIGH DOSE** TV 24-25 180 MCG/0.5 ML SYRINGE IM (10:21)
--- NOTE | 2024-02-19 12:48 | CASEMGMT ---
Social Work Pt's daughter in law Sisi called in to speak to the RN and asked to speak w/SW or CM. SHARIFA spoke w/Sisi on the phone in regard to discharge plan. She explains pt's son Kevin(her ) had brain surgery about a month ago so cannot remember everything, so wanted to check on what is going on w/pt. SHARIFA explained plan will be for pt to go home tomorrow w/home health. She states pt's other children are out of state and though the daughter in [place] may be able to come here, she can't get here for a couple of days. Sisi states that they cannot help pt due to her 's condition and also two grandchildren are staying w/them at present as her daughter is out of town. Sisi states they are concerned pt may have dementia but pt won't agree to an assessment. Sisi asked if pt could be assessed for this here. SHARIFA explained pt would need to follow up w/her PCP on this or possibly a neurologist. She states pt gave away $200,000 in the last 8 months to [employer]. She states pt is inappropriate, calls and threatens people, says inappropriate things in public. Sisi states pt has lived alone for a long time. Sisi confirms pt does still drive. They tried to get pt home delivered meals but pt declined. SHARIFA explained that we could look into SNF short term for pt but she may not qualify. Additionally pt may not be agreeable to go. SHAIRFA explained pt is agreeable to home health and we are going to set this up. Pt at this time seems to be alert and oriented. Sisi asked what would happen if family cannot be w/pt when pt is discharged tomorrow. SHARIFA explained that it is unlikely physician will keep pt here if she is medically stable and ready for discharge. SHARIFA inquired what would be different now, compared to a few days ago prior to pt's hospitalization. At this point there would not be a reason to keep pt in the hospital beyond tomorrow. Sisi states that they will speak w/family and let SW what they are able to come up w/in regard to someone staying w/the pt. Sisi is to call SW back once they speak w/family. Also Sisi would like to speak w/physician, SHARIFA texted physician and asked him to call Sisi. SHARIFA will continue to follow. KENYON Delatorre
--- NOTE | 2024-02-19 13:17 | CASEMGMT ---
Addendum entered by Kanika Schafer 02/19/24 13:52: Social Work Pt's daughter in law called SW again, message left then called again. She states she spoke w/Dr. Obrien. She confirms that pt's daughter will be here new , asked again about pt staying until then. She states she spoke w/Dr. Obrien who had explained it not completely up to him. Sisi asked about pt going to rehab for one night. SHARIFA explained this would be inappropriate as pts normally go to rehab for at least 4 nights. SW explained qualifications for SNF and rehab. SW explained pt would have to pay for SNF, as will not qualify under Medicare for a SNF stay. SW explained we can see what is going on tomorrow w/pt, but most likely will be discharged. We discussed if there would be anyone else who could stay w/pt. After some discussion she states pt can stay w/son for one night. SW will follow up tomorrow. KENYON Delatorre Original Note: Social Work SW spoke w/Sisi again, she asked about why pt is on contact precautions. She states pt's daughter may come from [place] but is concerned if pt is contagious, as she is to have surgery in February. SHARIFA asked RN, pt is out of precautions at this point, it was due to ruling out C-diff not a UTI. SHARIFA called Sisi back and let her know this. SHARIFA also let her know pt was somewhat unsteady with therapy, however both therapy and RN think it's due to pt not being up enough. Sisi states understanding. She states pt's daughter is going to fly here but cannot be here until . She inquired if pt would still be discharged tomorrow. SHARIFA explained will need to speak w/physician tomorrow about this. SHARIFA will continue to follow. KENYON Delatorre
[2024-02-19] MEDS: Cyanocobalamin 500 MCG Tablet 1000 MCG PO (15:10)
[2024-02-20] VITALS (8 sets, daily range): BP systolic 147–166; BP diastolic 69–72; PULSE 73–96; RESP 14–16; TEMP 36.4–36.6; O2SAT 94–96; BMI 25.9
[2024-02-20] MEDS: Acetaminophen 325 MG Tablet 650 MG PO (06:41)
[2024-02-20 07:31] LABS: Absolute Lymphocyte Count 0.64 X10^3/uL (0.83-4.51); Absolute Neutrophil Count 4.6 X10^3/uL (2.0-7.7); Basophil# 0.02 X10^3/uL; Basophil% 0.3 % (0-1); Eosinophil# 0.15 X10^3/uL; Eosinophils% 2.5 % (0-5); Hematocrit 28.9 % (37-47); Hemoglobin 9.9 g/dL (12.0-15.0); Lymphocyte # 0.64 X10^3/ul (0.83-4.51); Lymphocyte % 10.6 % (19-41); Mean Corp Hgb Conc 34.3 g/dL (32-36); Mean Corpuscular Hgb 32.6 pg (27.0-32.0); Mean Corpuscular Volume 95.1 fL (81-99); Mean Platelet Vol. 9.7 fl (6.2-12.0); Monocyte# 0.53 X10^3/uL; Monocyte% 8.8 % (0-10); NRBC Flagged by Analyzer 0 % (0-5); Neutrophil # 4.62 X10^3/uL (2.7-7.7); Platelet Count 234 K/mm3 (150-450); RBC Distribution Width CV 12.8 % (11.6-14.6); RBC Distribution Width SD 43.8 fl (35.1-43.9); Red Blood Count 3.04 M/mm3 (4.2-5.4)
[2024-02-20 08:17] LABS: ALB/GLOB Ratio 0.8 RATIO (0.9-2.4); AST(SGOT) 20 U/L (15-37); Alanine Aminotransfer ALT/SGPT 11 U/L (13-56); Albumin, Serum 3.1 g/dL (3.2-5.0); Alkaline Phosphatase 48 U/L (45-117); Anion Gap 6 (5-15); BUN 11 mg/dL (7-18); BUN/Creat Ratio 15.6 RATIO (10-20); Calcium,Total 9.3 mg/dL (8.5-10.1); Chloride 111 mmol/L (98-107); EST Glomerular Filtration Rate 84 mL/min (>60); Est Glom Filt Rate - Afr Amer 101 mL/min (>60); Estimated Creatinine Clearance 48.05 ml/min; Globulin 3.8 g/dL (2.2-4.2); Glucose 105 mg/dL (74-106); Potassium 3.5 mmol/L (3.5-5.1); Protein, Total 6.9 g/dL (6.4-8.2); Sodium Level 141 mmol/L (136-145)
[2024-02-20] MEDS: amLODIPine 5 MG Tablet PO (08:52)
[2024-02-20] MEDS: Cyanocobalamin 500 MCG Tablet 1000 MCG PO (08:53)
[2024-02-20] MEDS: Lactobacillis Acidophilus 1 CAP PO ×2 (08:53→13:39)
[2024-02-20] MEDS: Ascorbic Acid 500 MG Tablet 1000 MG PO (08:53)
[2024-02-20] MEDS: Enoxaparin 40 MG/0.4 ML Syringe SC (08:53)
[2024-02-20] MEDS: Citalopram 40 MG TABLET PO (08:54)
[2024-02-20] MEDS: Losartan Potassium 100 MG Tablet PO (08:54)
[2024-02-20] MEDS: Potassium Chloride Oral Tablet 20 MEQ PO (08:54)
[2024-02-20] MEDS: Pantoprazole Sodium 20 MG Tablet PO (08:55)
[2024-02-20] MEDS: Cholecalciferol (Vit D3) 125 MCG CAPSULE (5,000 UNITS) PO (08:55)
[2024-02-20] MEDS: Gemfibrozil 600 MG Tablet PO (08:55)
--- NOTE | 2024-02-20 09:19 | PCM.DC ---
Discharge Instructions Diet Discharge Diet: Light diet - advance as tolerated DC O2, CPAP, BIPAP needs Home O2 Discharge instructions: No Dressing / Incision Discharge Activity: Return to Normal Activity Weight Bearing Status: Weight bearing as tolerated Dressing / Incision Call your doctor if you observe: Fever of 101 or Higher, Coldness, Increased Pain, Numbness or Tingling, Change in Color, Inability to urinate, Inability to have a bowel movement, Shortness of breath, Dizziness, Fainting spells, Swelling in the ankles, Chest pain, Prolonged hiccupping, Increased palpitations (irregular heartbeat) and Calf discomfort Follow Up Care When: IN 2 WEEKS Test Results: Test results from this visit will be discussed in further detail at your follow-up appointment, if applicable. Discharge Plan Admission Admit Date/Time: 02/19/24 02:49 Primary Reason for Your Visit: E. coli UTI Attending Provider: Juan Manuel Obrien Primary Care Provider: Ton Espino Consulting Providers: Dylan Sabillon Discharge Orders/Prescriptions Prescriptions: New cefdinir 300 mg capsule 300 mg PO BID 5 Days Qty: 10 0RF Continued loperamide [Anti-Diarrheal (loperamide)] 2 mg capsule 2 mg PO Q1-4H PRN (Reason: loose stool) omeprazole 20 mg capsule,delayed release(DR/EC) 20 mg PO DAILY ascorbate calcium (vitamin C) 500 mg tablet 500 mg PO DAILY biotin 5 mg capsule 5 mg PO DAILY (DME) Handicap Placard See Rx Instructions .ROUTE .MEDSUPPLY Qty: 1 0RF Rx Instructions: As directed, length of time 3 years (DME) compress.stocking,knee,reg,lrg Misc See Rx Instructions .MEDSUPPLY Qty: 2 1RF Rx Instructions: wear daily for venous insufficiency 20-30 mmHg omega-3 fatty acids-fish oil 340-1,000 mg capsule 2 cap PO BID Patient Comments: takes 1 capule in the morning and 2 capsules in the evening (DME) 4 wheel Scooter Qty: 1 0RF Rx Instructions: As directed (DME) Handicap Placard See Rx Instructions .ROUTE .MEDSUPPLY Qty: 1 0RF Rx Instructions: As directed, length of time 3 years albuterol sulfate 90 mcg/actuation HFA aerosol inhaler 2 puff inhalation Q6H PRN (Reason: shortness of breath or wheezing) Qty: 8.5 4RF doxazosin 4 mg tablet 4 mg PO BID 90 Days Qty: 180 3RF citalopram 40 mg tablet 40 mg PO DAILY Qty: 90 3RF cholecalciferol (vitamin D3) 1,250 mcg (50,000 unit) capsule 1,250 mcg PO QWEEK Qty: 30 1RF gemfibrozil 600 mg tablet See Rx Instructions .ROUTE .COMPLEX Qty: 180 3RF Dose Instruction: TAKE 1 TABLET BY MOUTH TWICE DAILY Rx Instructions: TAKE 1 TABLET BY MOUTH TWICE DAILY losartan 100 mg tablet 100 mg PO QDAY Qty: 90 3RF potassium chloride 20 mEq tablet extended release 20 meq PO BID Qty: 180 3RF Rx Instructions: Dissolve tabs in water BID. amlodipine 5 mg tablet 5 mg PO DAILY Qty: 90 3RF Referrals / Follow Up: Ton Espino MD [Primary Care Provider] - Within 2 Weeks (Might need referral to neuro for evaluation of dementia) Disposition Disposition (needs filled in before D/C Order can be placed): Home, Self Care
--- NOTE | 2024-02-20 10:41 | CASEMGMT ---
Discharge Planning A list of HH providers including quality and resource use data and consistent with the patient's preferred geographic region, medical needs, and insurance network was created in [facility] Guide.? This list was provided to the RN SAMY. Sharmila Khan, Discharge Planning Asst.
--- NOTE | 2024-02-20 11:28 | DS.PCM_ITS ---
Providers Date of Admission: 02/19/24 Date of Discharge: 02/20/24 Primary Care Physician: Dr. Ton Espino MD Reason For Visit: UTI AND AMS WITH FALL Diagnosis Discharge Diagnosis (1) Acute cystitis without hematuria: Status: Acute Code(s): N30.00 - Acute cystitis without hematuria (2) Metabolic encephalopathy: Status: Acute Code(s): G93.41 - Metabolic encephalopathy (3) Nausea vomiting and diarrhea: Status: Acute Code(s): R11.2 - Nausea with vomiting, unspecified; R19.7 - Diarrhea, unspecified (4) Generalized weakness: Status: Acute Code(s): R53.1 - Weakness (5) Ambulatory dysfunction: Status: Acute Code(s): R26.2 - Difficulty in walking, not elsewhere classified (6) Right shoulder pain: Status: Acute Code(s): M25.511 - Pain in right shoulder Qualifiers: Chronicity: chronic Qualified Code(s): M25.511 - Pain in right shoulder; G89.29 - Other chronic pain (7) Fall: Status: Acute Code(s): W19.XXXA - Unspecified fall, initial encounter Qualifiers: Encounter type: initial encounter Qualified Code(s): W19.XXXA - Unspecified fall, initial encounter (8) Dysequilibrium: Status: Acute Code(s): R42 - Dizziness and giddiness (9) Osteoarthritis: Status: Acute Code(s): M19.90 - Unspecified osteoarthritis, unspecified site Qualifiers: Osteoarthritis location: unspecified site Osteoarthritis type: u nspecified Qualified Code(s): M19.90 - Unspecified osteoarthritis, unspecified site (10) Obesity (BMI 30-39.9): Status: Acute Code(s): E66.9 - Obesity, unspecified (11) Thyroid nodule: Status: Acute Code(s): E04.1 - Nontoxic single thyroid nodule Plan This is a 88-year-old female was brought to the to ED when she apparently rolled down from recliner to floor, found by the daughter. She was also feeling dizzy and vomited to the ED physician. She stated she does not know how she came on the floor and maybe rolled down from the recliner chair. Denies major injury. 1. Acute E. coli cystitis: Patient has increased frequency and urgency but denies dysuria. Patient has leukocytosis and UA positive of nitrite and LE, pyuria and bacteriuria. Empirically on IV ceftriaxone. Urine culture pending. Previous urine culture was mixed gram-positive and negative organisms. 02/19: Urine culture prelim shows E. coli more than 100,000 colonies. Sensitivity pending. Follow sensitivity with the PCP. Patient empirically discharged on cefdinir 300 mg twice daily for 5 more days to complete a 1 week of antibiotic. 2. Acute Metabolic Encephalopathy with possible chronic dementia- Treat infection as outlined above and monitor for improvement. 02/18: U tox is negative. TSH normal. B12 low normal. Folate normal. B12 replacement ordered. Discussed with the patient's daughter. She stated that she might have dementia as she is forgetful does not remember and cannot take care of herself. When I talked to the patient she said she is still driving but sometimes she forgets. Discussed with patient case coordinator and social media specialist. She asked me to keep the patient until February 20 and I told when she is medically readyshe will be discharged. 02/19: Patient is back to the baseline. Prescription given for B12. Advised to follow-up with neurology, to be referred by PCP. 3. Generalized Weakness with Ambulatory Dysfunction and Fall likely arising from #1 & #2 in the setting of known Chronic Dysequilibrium and OA; with history of torn meniscus of Right knee, Right TKR and chronic pain in Right shoulder - PT/OT and Case Management to consult and treat on-rounds in AM for further recommendations with help appreciated in advance. 4. Obesity; with BMI of 37 Kg/m2- Weight loss will be recommended. Check TSH. This complicates her case and may hamper recovery. 5. Incidentally noted thyroid nodule on CT this admission with thyroid ultrasound recommended - 02/18: TSH 0.707. Normal. Thyroid ultrasound was done which shows dominant hypoechoic nodule 1.1 x 10 x 9 mm, wider than taller shows smoking margin with no echogenic foci. Recommended repeat thyroid ultrasound in 1 year. 7. Essential hypertension; on losartan and amlodipine, secondary pulmonary hypertension-not on any medication for pulmonary hypertension. 8. Chronic dyslipidemia; on gemfibrozil - Continue gemfibrozil and check lipid profile this admission. 9. Depression; on citalopram - Resume citalopram as before. 10. Chronic overactive bladder - Patient currently not on pharmacologic treatment for this issue. 11. DVT prophylaxis - Lovenox 40 mg sq daily plus SCD's. Discharge medication reconciliation done. Discharge follow-up instructions completed. Discharge process discussed with the patient and all questions were answered to patient's satisfaction. Follow with PCP in 1 to 2 weeks Total time spent, exact 35 minutes on discharge meds reconciliation, examination, coordination of care with nurses and ancillary staff, review of imaging and blood test and discussion with the patient on follow-up instructions. Medications at Discharge Home Medications loperamide 2 mg capsule (Anti-Diarrheal (loperamide)) 2 mg PO Q1-4H PRN loose stool 11/13/17 omeprazole 20 mg capsule,delayed release 20 mg PO DAILY 11/26/18 4 wheel Scooter #1 ea 12/12/18 Handicap Placard #1 ea 07/18/19 ascorbate calcium (vitamin C) 500 mg tablet 500 mg PO DAILY 12/03/19 biotin 5 mg capsule 5 mg PO DAILY 12/03/19 omega-3 fatty acids-fish oil 340 mg-1,000 mg capsule 2 cap PO BID heart 06/14/21 Handicap Placard #1 ea 07/11/22 albuterol sulfate 90 mcg/actuation aerosol inhaler 2 puff inhalation Q6H PRN shortness of breath or wheezing #8.5 grams 12/27/22 compress.stocking,knee,reg,lrg #2 ea 02/27/23 citalopram 40 mg tablet 40 mg PO DAILY depression #90 tabs 07/13/23 doxazosin 4 mg tablet 4 mg PO BID 3 months #180 tabs 07/13/23 cholecalciferol (vitamin D3) 1,250 mcg (50,000 unit) capsule 1,250 mcg PO QWEEK #30 caps 10/18/23 gemfibrozil 600 mg tablet See Rx Instructions .Route .COMPLEX #180 tabs 10/20/23 losartan 100 mg tablet 100 mg PO QDAY #90 tabs 10/20/23 amlodipine 5 mg tablet 5 mg PO DAILY #90 tabs 01/08/24 potassium chloride 20 mEq tablet,extended release 20 meq PO BID #180 tabs 01/08/24 cefdinir 300 mg capsule 300 mg PO BID 5 days #10 caps 02/20/24 cyanocobalamin (vitamin B-12) 1,000 mcg tablet 1,000 mcg PO BREAKFAST 30 days #30 tabs 02/20/24 Physical Exam Narrative Patient seen and examined. To the ED physician she said she also had vomiting and feeling dizzy. She states that she has increased frequency and urgency but denies burning micturition. No fever. Physical exam General: Alert, Oriented x3, Cooperative, intermittent forgetful HEENT: Atraumatic, PERRLA, EOMI, Normocephalic Oral: No Gingival or Mucosal Lesions/ Ulcerations Neck: Supple, No JVD, Negative Carotid Bruits Chest wall/Lungs: Air entry diminished in bilateral lung bases. No crepitation/rhonchi Cardiovascular: Regular rate, Regular Rhythm, Normal S1, Normal S2, mild systolic murmur. Abdomen: Bowel Sounds Present, Soft, Non Tender, Non-Distended : No dysuria. No renal angle tenderness. No suprapubic tenderness. Extremities: No edema, Capillary Refill Less than 3 Seconds Skin: No rashes, No breakdown Musculoskeletal: No Tenderness to Palpation of Joints or Extremities. Degenerative arthritis. Neurological: Cranial nerves II-XII grossly intact, DTR 2+/4. No acute focal neurological deficit. Psych/Mental Status: Anterograde and retrograde amnesia. She still drives. Possible early dementia Weight / BMI Weight Weight: 151 lb 7.321 oz Body Mass Index (BMI) 25.9 ABG / Lab / Microbiology Data 02/20/24 06:34 02/20/24 06:34 Laboratory: Laboratory Results - last 24 hr 02/20/24 06:34: WBC 6.0, RBC 3.04 L, Hgb 9.9 L, Hct 28.9 L, MCV 95.1, MCH 32.6 H , MCHC 34.3, RDW Std Deviation 43.8, RDW Coeff of Luis Fernando 12.8, Plt Count 234, MPV 9.7, Immature Gran % (Auto) 0.800, Neut % (Auto) 77.0 H, Lymph % (Auto) 10.6 L, [place] % (Auto) 8.8, Eos % (Auto) 2.5, Baso % (Auto) 0.3, Absolute Neuts (auto) 4.6, Absolute Lymphs (auto) 0.64 L, Nucleated RBC % 0, Sodium 141, Potassium 3.5, Chloride 111 H, Carbon Dioxide 24.0, Anion Gap 6, BUN 11, Creatinine 0.70, Estim Creat Clear Calc 48.05, Est GFR (MDRD) Af Amer 101, Est GFR (MDRD) Non-Af 84, BUN/Creatinine Ratio 15.6, Glucose 105, Calcium 9.3, Total Bilirubin 0.40, AST 20, ALT 11 L, Alkaline Phosphatase 48, Total Protein 6.9, Albumin 3.1 L, Globulin 3.8, Albumin/Globulin Ratio 0.8 L Microbiology: Microbiology 02/19/24 01:56 Interface Orders Urine Culture - Preliminary Presumptive E. coli 02/19/24 00:50 Mucosa - Nose SARS-CoV-2, Influenza & RSV (PCR) - Final Radiography Diagnostic Testing: Radiology Impression Thyroid Ultrasound 02/19/24 04:40 IMPRESSION: Dominant nodule in the right lobe and follow-up ultrasound is recommended in one year. Electronically Signed: Tiago Bryan MD at 13:07 EST Reading Location ID and State: [address] [place] [address] Tel , Service support , D/C Instructions Discharge Diet: Light diet - advance as tolerated Weight Bearing Status: Weight bearing as tolerated Call your doctor if you observe: Fever of 101 or Higher, Coldness, Increased Pain, Numbness or Tingling, Change in Color, Inability to urinate, Inability to have a bowel movement, Shortness of breath, Dizziness, Fainting spells, Swelling in the ankles, Chest pain, Prolonged hiccupping, Increased palpitations (irregular heartbeat) and Calf discomfort DC O2, CPAP, BIPAP Needs Home O2 Discharge instructions: No When: IN 2 WEEKS Meaningful Use Info Meaningful Use Meaningful Use Diagnoses (Choose all that apply): None applicable Ischemic Stroke Statin Dosing Therapy Reference: STATIN DOSE THERAPY REFERENCE: * Patients > 75 years receive moderate or high dose statin therapy. * Patients 75 years or YOUNGER should receive HIGH intensity statin dose unless contraindicated. You will be required to document reason for non-treatment if statin daily dose does not meet guidelines. HIGH DOSE STATIN THERAPY DAILY Atorvastatin > than or = to 40 mg Rosuvastatin > than or = to 20 mg Amlodipine + Atorvastatin > than or = to 2.5/40 mg Ezetimibe + Simvastatin 10/80 mg Simvastatin 80mg Discharge Plan Admission Admit Date/Time: 02/19/24 02:49 Primary Reason for Your Visit: E. coli UTI Attending Provider: Juan Manuel Obrien Primary Care Provider: Ton Espino Consulting Providers: Dylan Sabillon Discharge Orders/Prescriptions Prescriptions: New cefdinir 300 mg capsule 300 mg PO BID 5 Days Qty: 10 0RF cyanocobalamin (vitamin B-12) 1,000 mcg tablet 1,000 mcg PO BREAKFAST 30 Days Qty: 30 2RF Continued loperamide [Anti-Diarrheal (loperamide)] 2 mg capsule 2 mg PO Q1-4H PRN (Reason: loose stool) omeprazole 20 mg capsule,delayed release(DR/EC) 20 mg PO DAILY ascorbate calcium (vitamin C) 500 mg tablet 500 mg PO DAILY biotin 5 mg capsule 5 mg PO DAILY (DME) Handicap Placard See Rx Instructions .ROUTE .MEDSUPPLY Qty: 1 0RF Rx Instructions: As directed, length of time 3 years (DME) compress.stocking,knee,reg,lrg Misc See Rx Instructions .MEDSUPPLY Qty: 2 1RF Rx Instructions: wear daily for venous insufficiency 20-30 mmHg omega-3 fatty acids-fish oil 340-1,000 mg capsule 2 cap PO BID Patient Comments: takes 1 capule in the morning and 2 capsules in the evening (DME) 4 wheel Scooter Qty: 1 0RF Rx Instructions: As directed (DME) Handicap Placard See Rx Instructions .ROUTE .MEDSUPPLY Qty: 1 0RF Rx Instructions: As directed, length of time 3 years albuterol sulfate 90 mcg/actuation HFA aerosol inhaler 2 puff inhalation Q6H PRN (Reason: shortness of breath or wheezing) Qty: 8.5 4RF doxazosin 4 mg tablet 4 mg PO BID 90 Days Qty: 180 3RF citalopram 40 mg tablet 40 mg PO DAILY Qty: 90 3RF cholecalciferol (vitamin D3) 1,250 mcg (50,000 unit) capsule 1,250 mcg PO QWEEK Qty: 30 1RF gemfibrozil 600 mg tablet See Rx Instructions .ROUTE .COMPLEX Qty: 180 3RF Dose Instruction: TAKE 1 TABLET BY MOUTH TWICE DAILY Rx Instructions: TAKE 1 TABLET BY MOUTH TWICE DAILY losartan 100 mg tablet 100 mg PO QDAY Qty: 90 3RF potassium chloride 20 mEq tablet extended release 20 meq PO BID Qty: 180 3RF Rx Instructions: Dissolve tabs in water BID. amlodipine 5 mg tablet 5 mg PO DAILY Qty: 90 3RF Referrals / Follow Up: Ton Espino MD [Primary Care Provider] - Within 2 Weeks (Might need referral to neuro for evaluation of dementia) Disposition Disposition (needs filled in before D/C Order can be placed): Home, Self Care Charges/Coding Visit Charges Inpatient E&M: 93911 Disch Hosp >30min
--- NOTE | 2024-02-20 11:57 | CASEMGMT ---
RN SAMY in to discuss discharge planning with patient as SW updated RN CM that patient would like HHC. RN CM reviewed [facility] services with patient and provided HHC list to patient. Patient states her daughter is coming to stay with her and is not sure if she would want patient to have HHC. Patient asked RN CM to speak with daughter Indigo. RN CM called RAFAEL Laird for Indigo's phone number [phone]. RN CM called Indigo and updated regarding discharge planning and discussed HHC. Indigo is agreeable to HHC, list provided to daughter and prefers [facility]. Daughter Indigo had no further questions or concerns. RN CM made referral to [facility] and they are able to accept patient with planned start of care for . RN CM updated patient regarding conversation with Indigo, patient agreeable to plan and updated regarding acceptance with [facility] and start of care for . Patient had no further needs or concerns. Patient had discharge for today and denies further needs. Patient had no further questions. Discharge plan updated.
[2024-02-20] MEDS: Ceftriaxone 1 GM Vial IM (13:40)
== END 2024-02-20 15:09 | disposition home or self-care (01) | DRG 689 ==
LOC: ED 02-19 02:49 → PCU 02-19 04:09
PROVIDERS: Admitting Provider Internal Medicine; Emergency Provider Emergency Medicine; PCP Internal Medicine; Referring Provider Internal Medicine; Visit Provider Internal Medicine
DX: N30.00 Acute cystitis without hematuria (principal); G93.41 Metabolic encephalopathy; E04.1 Nontoxic single thyroid nodule; I10 Essential (primary) hypertension; F32.A Depression, unspecified; E66.9 Obesity, unspecified; K21.9 Gastro-esophageal reflux disease without esophagitis; E78.5 Hyperlipidemia, unspecified; M25.511 Pain in right shoulder; R11.2 Nausea with vomiting, unspecified; R19.7 Diarrhea, unspecified; W19.XXXA Unspecified fall, initial encounter; M19.90 Unspecified osteoarthritis, unspecified site; R42 Dizziness and giddiness; G89.29 Other chronic pain; R53.1 Weakness; Z68.37 Body mass index [BMI] 37.0-37.9, adult; Z87.891 Personal history of nicotine dependence; M81.0 Age-related osteoporosis without current pathological fracture; R26.89 Other abnormalities of gait and mobility; B96.20 Unspecified Escherichia coli [E. coli] as the cause of diseases classified elsewhere; Z23 Encounter for immunization; Z79.899 Other long term (current) drug therapy; Z90.49 Acquired absence of other specified parts of digestive tract; Z96.659 Presence of unspecified artificial knee joint; Z68.30 Body mass index [BMI] 30.0-30.9, adult
CPT/HCPCS: 36415; 70450; 71045; 72100; 72125; 72170; 73030; 76536; 80053; 80307; 81001; 82077; 82550; 82607; 82746; 83735; 84100; 84443; 84484; 85025; 87086; 87088; 87186; 87631; 90662; 93005; 94668; 97162; 97166; 99285; A4216; J2405

== ENCOUNTER → 2024-02-26 | Outpatient (CLI) | payer MEDICARE, OTHER, SELFPAY ==
[2024-02-26 12:28] LABS: Absolute Lymphocyte Count 0.91 X10^3/uL (0.83-4.51); Absolute Neutrophil Count 3.8 X10^3/uL (2.0-7.7); Basophil# 0.04 X10^3/uL; Basophil% 0.7 % (0-1); Eosinophil# 0.23 X10^3/uL; Eosinophils% 4.1 % (0-5); Hematocrit 32.4 % (37-47); Lymphocyte # 0.91 X10^3/ul (0.83-4.51); Lymphocyte % 16.1 % (19-41); Mean Corpuscular Hgb 32.9 pg (27.0-32.0); Mean Platelet Vol. 9.5 fl (6.2-12.0); Monocyte# 0.63 X10^3/uL; Monocyte% 11.1 % (0-10); NRBC Flagged by Analyzer 0 % (0-5); Neutrophil # 3.75 X10^3/uL (2.7-7.7); Neutrophil % 66.2 % (47-70); Platelet Count 372 K/mm3 (150-450); RBC Distribution Width CV 13.1 % (11.6-14.6); Red Blood Count 3.34 M/mm3 (4.2-5.4); White Blood Count 5.7 K/mm3 (4.4-11.0)
[2024-02-26 12:44] LABS: ALB/GLOB Ratio 0.9 RATIO (0.9-2.4); AST(SGOT) 10 U/L (15-37); Alanine Aminotransfer ALT/SGPT 12 U/L (13-56); Albumin, Serum 3.6 g/dL (3.2-5.0); Alkaline Phosphatase 48 U/L (45-117); Anion Gap 5 (5-15); BUN 14 mg/dL (7-18); BUN/Creat Ratio 15.3 RATIO (10-20); Calcium,Total 9.6 mg/dL (8.5-10.1); Chloride 109 mmol/L (98-107); Creatinine, Serum 0.91 mg/dL (0.55-1.02); EST Glomerular Filtration Rate 62 mL/min (>60); Est Glom Filt Rate - Afr Amer 75 mL/min (>60); Ferritin 117 ng/mL (8-252); Globulin 3.9 g/dL (2.2-4.2); Glucose 122 mg/dL (74-106); Iron 106 ug/dL (50-170); Iron Binding Capacity,Total 350 ug/dL (250-450); Potassium 4.1 mmol/L (3.5-5.1); Protein, Total 7.5 g/dL (6.4-8.2); Sodium Level 140 mmol/L (136-145)
== END | disposition home or self-care (01) ==
LOC: BIMLAB 09:47
PROVIDERS: PCP Internal Medicine; Referring Provider Internal Medicine; Visit Provider Internal Medicine
DX: D64.9 Anemia, unspecified (principal); I10 Essential (primary) hypertension
CPT/HCPCS: 36415; 80053; 82728; 83540; 83550; 85025

== ENCOUNTER → 2024-04-24 | Outpatient (CLI) | payer MEDICARE, OTHER, SELFPAY ==
[2024-04-24 16:51] LABS: Absolute Lymphocyte Count 1.41 X10^3/uL (0.83-4.51); Absolute Neutrophil Count 2.8 X10^3/uL (2.0-7.7); Basophil# 0.02 X10^3/uL; Basophil% 0.4 % (0-1); Eosinophil# 0.16 X10^3/uL; Eosinophils% 3.3 % (0-5); Hematocrit 33.8 % (37-47); Hemoglobin 11.3 g/dL (12.0-15.0); Lymphocyte # 1.41 X10^3/ul (0.83-4.51); Mean Corp Hgb Conc 33.4 g/dL (32-36); Mean Corpuscular Hgb 32.4 pg (27.0-32.0); Mean Corpuscular Volume 96.8 fL (81-99); Mean Platelet Vol. 10.3 fl (6.2-12.0); Monocyte# 0.49 X10^3/uL; Monocyte% 10.1 % (0-10); NRBC Flagged by Analyzer 0 % (0-5); Neutrophil # 2.78 X10^3/uL (2.7-7.7); Platelet Count 208 K/mm3 (150-450); RBC Distribution Width CV 12.6 % (11.6-14.6); RBC Distribution Width SD 43.9 fl (35.1-43.9); Red Blood Count 3.49 M/mm3 (4.2-5.4); White Blood Count 4.9 K/mm3 (4.4-11.0)
[2024-04-24 18:07] LABS: ALB/GLOB Ratio 1.6 RATIO (0.9-2.4); AST(SGOT) 13 U/L (<=31); Alanine Aminotransfer ALT/SGPT < 5 U/L (<=34); Albumin, Serum 4.5 g/dL (3.4-4.8); Alkaline Phosphatase 51 U/L (35-104); Anion Gap 14 (5-15); BUN 23 mg/dL (4-19); Calcium,Total 9.6 mg/dL (7.6-11.0); Carbon Dioxide 23.1 mmol/L (21.0-32.0); Chloride 107 mmol/L (98-108); Creatinine, Serum 1.15 mg/dL (0.70-1.20); EST Glomerular Filtration Rate 46 (>60); Globulin 2.7 g/dL (2.2-4.2); Glucose 115 mg/dL (70-99); Potassium 4.9 mmol/L (3.3-5.1); Protein, Total 7.2 g/dL (5.9-8.4); Sodium Level 143 mmol/L (133-145); Total Bilirubin 0.27 mg/dL (0.00-1.30)
== END | disposition home or self-care (01) ==
LOC: BIMLAB 15:16
PROVIDERS: PCP Internal Medicine; Referring Provider Internal Medicine; Visit Provider Internal Medicine
DX: I10 Essential (primary) hypertension (principal)
CPT/HCPCS: 36415; 80053; 85025

== ENCOUNTER → 2024-09-25 | Outpatient (CLI) | payer MEDICARE, OTHER, SELFPAY ==
[2024-09-25 16:39] LABS: Hematocrit 35.1 % (37-47); Hemoglobin 11.8 g/dL (12.0-15.0); Immature Granulocytes Count 0.020 X10^3/uL (0.0-0.0); Mean Corp Hgb Conc 33.6 g/dL (32-36); Mean Corpuscular Volume 98.0 fL (81-99); Mean Platelet Vol. 10.1 fl (6.2-12.0); NRBC Flagged by Analyzer 0 % (0-5); Platelet Count 203 K/mm3 (150-450); RBC Distribution Width CV 12.7 % (11.6-14.6); RBC Distribution Width SD 45.8 fl (35.1-43.9); Red Blood Count 3.58 M/mm3 (4.2-5.4); White Blood Count 6.2 K/mm3 (4.4-11.0)
[2024-09-25 17:19] LABS: AST(SGOT) 15 U/L (<=31); Alanine Aminotransfer ALT/SGPT 9 U/L (<=34); Albumin, Serum 4.8 g/dL (3.4-4.8); Alkaline Phosphatase 65 U/L (35-104); Anion Gap 17 (5-15); BUN 20 mg/dL (4-19); BUN/Creat Ratio 17.6 RATIO (10-20); Calcium,Total 9.8 mg/dL (7.6-11.0); Carbon Dioxide 21.5 mmol/L (21.0-32.0); Chloride 102 mmol/L (98-108); Globulin 2.7 g/dL (2.2-4.2); Glucose 93 mg/dL (70-99); Potassium 4.6 mmol/L (3.3-5.1)
[2024-09-26 08:44] LABS: BETA-HYDROXYBUTYRATE 0.1 mmol/L (0.0-0.3)
== END | disposition home or self-care (01) ==
LOC: BIMLAB 15:24
PROVIDERS: PCP Internal Medicine; Referring Provider Internal Medicine; Visit Provider Internal Medicine
DX: I10 Essential (primary) hypertension (principal); E87.8 Other disorders of electrolyte and fluid balance, not elsewhere classified
CPT/HCPCS: 36415; 80053; 82010; 85025

== ENCOUNTER → 2024-10-04 | Outpatient (CLI) | payer MEDICARE, OTHER, SELFPAY ==
[2024-10-04 14:51] LABS: Anion Gap 14 (5-15); BUN 19 mg/dL (4-19); BUN/Creat Ratio 18.6 RATIO (10-20); Calcium,Total 9.7 mg/dL (7.6-11.0); Carbon Dioxide 21.8 mmol/L (21.0-32.0); Chloride 106 mmol/L (98-108); Glucose 157 mg/dL (70-99); Potassium 4.6 mmol/L (3.3-5.1)
== END | disposition home or self-care (01) ==
LOC: LAB 13:41
PROVIDERS: PCP Internal Medicine; Referring Provider Internal Medicine; Visit Provider Internal Medicine
DX: E87.8 Other disorders of electrolyte and fluid balance, not elsewhere classified (principal)
CPT/HCPCS: 36415; 80048